=== PATIENT | female | born 1930 | race Caucasian/White ===

== ENCOUNTER 2017-09-27 19:13 | Observation (INO) | payer OTHER ==
--- OUTSIDE RECORDS SUMMARY | 2017-09-27 19:15 | XMS REPORT | Clinical Summary ---
:1930 Author Organization [facility] Address [address] [place] [address] Care Team Providers Name Role Phone Awa Bush MD Primary Care Provider Allergies Active Allergy Reactions Severity Noted Date Comments Diltiazem Hcl Hives 11/03/2015 Cefuroxime Hives 11/03/2015 Ciprofloxacin Hives 11/03/2015 Codeine Hives 11/03/2015 Procaine GI Intolerance 11/03/2015 Penicillin G Acetaminophen GI Intolerance 11/03/2015 vomiting Current Medications Prescription Sig. Disp. Refills Start Date End Date Status ALPRAZolam (XANAX) Take 0.5 mg Active 0.5 MG tablet by mouth nightly. zolpidem (AMBIEN) 5 03/25/2016 Active MG tablet temazepam 09/26/2016 Active (RESTORIL) 15 mg capsule amLODIPine Take 1 tablet 90 tablet 3 11/04/2016 Active (NORVASC) 10 mg (10 mg total) tablet by mouth daily. metoprolol tartrate Take 1 tablet 180 tablet 3 11/04/2016 Active (LOPRESSOR) 25 mg (25 mg total) tablet by mouth 2 (two) times a day. metoprolol tartrate Take 25 mg by 11/04/2016 Discontinued (LOPRESSOR) 25 mg mouth 2 (two) tablet times a day. amLODIPine Take 10 mg by 11/04/2016 Discontinued (NORVASC) 10 mg mouth daily. tablet amLODIPine Take 1 tablet 90 tablet 3 05/06/2016 05/06/2017 (NORVASC) 10 mg (10 mg total) tablet by mouth daily. Active Problems Problem Noted Date AVD (aortic valve disease) 11/04/2016 S/P AVR 05/01/2016 Encounters Date Type Specialty Care Team Description 05/26/2017 Office Visit Cardiology Tim Madrigal MD S/P AVR (Primary Dx) 11/04/2016 Office Visit Cardiology Tim Madrigal MD AVD (aortic valve disease) (Primary Dx); S/P AVR after 09/26/2016 Family History Medical History Relation Name Comments No Known Problems Father No Known Problems Mother Relation Name Status Comments Father Mother Social History Tobacco Use Types Packs/Day Years Used Date Never Smoker Smokeless Tobacco: Never Used Alcohol Use Drinks/Week oz/Week Comments No Sex Assigned at Date Recorded Not on file Last Filed Vital Signs Vital Sign Reading Time Taken Blood Pressure 136/59 05/26/2017 3:24 PM FLIGHT ATTENDANT/INFLIGHT SUPERVISOR Pulse 80 05/26/2017 3:24 PM FLIGHT ATTENDANT/INFLIGHT SUPERVISOR Temperature - - Respiratory Rate - - Oxygen Saturation - - Inhaled Oxygen Concentration - - Weight 60.3 kg (133 lb) 05/26/2017 3:24 PM FLIGHT ATTENDANT/INFLIGHT SUPERVISOR Height 165.1 cm (5' 5") 05/26/2017 3:24 PM FLIGHT ATTENDANT/INFLIGHT SUPERVISOR Body Mass Index 22.13 05/26/2017 3:24 PM FLIGHT ATTENDANT/INFLIGHT SUPERVISOR Plan of Treatment Date Type Specialty Care Team Description 11/24/2017 Office Visit Cardiology Tim Madrigal MD [address] [place] [address] Health Maintenance Due Date Last Done Comments SHINGRIX VACCINE (#1) 1979 ZOSTER VACCINE 1989 PNEUMOCOCCAL POLYSACCHARIDE VACCINE AGE 65 AND OVER 1994 PNEUMOCOCCAL-13 1994 INFLUENZA VACCINE 11/04/2017 Procedures Procedure Name Priority Date/Time Associated Comments Diagnosis ECHOCARDIOGRAM 2D Routine 12/18/2016 12:55 AVD (aortic valve Results for this COMPLETE W MMODE PM CDT disease) procedure are in SPECTRAL COLOR DOPPLER the results (36142) section. after 09/26/2016 Results Echocardiogram complete w contrast and 3D if needed (12/18/2016 12:55 PM) Narrative Performed At [facility] Echocardiography Report Pat.Name:VICENTE VALENTIN Bernie.ID:[id number] .Date: 12/18/2016 Refer.MD:TIM MADRIGAL MD Exam Time: 12:05:00 PM Study Type:Routine Echo Height:65inWeight: 136lb BSA: 1.68 m2 DOBAge:1930,86Y Sex: FEMALEBP:139/65 Sonogrphr: Cherelle Jacobson RDCS, RVTPat. Stat.:Outpatient Room:[facility] Status:Final Echo Event ID:[id number] Order ID:[id number] Reason for Study:Prosthetic valve, no dysfunction -Routine (<3yr) History / Clinical:Atrial Fibrillation, Chest Pain, Hypertension, Valvular Heart Disease; Aortic Stenosis Procedures:2D Echo, Colorflow Doppler Race:C FINDINGS: LV: LV size is grossly normal. Technical difficulty limits accurateassessment of LV dimensions. LV systolic function ishyperdynamic. Overall wall motion is hyperdynamic. EstimatedEF is >70%. RV: RV size is normal. RV systolic function is normal. LA: LA size is normal. RA: RA size is normal. AO: Aortic root diameter is not well visualized. LION: No pericardial effusion. There is an anterior space consistentwith a prominent epicardial fat pad. AV: Bioprosthetic valve in aortic position (unknown type)-not wellvisualized. Cannot exclude mild aortic regurgitation (possiblyparavalvular). Technical difficulty limits accurateassessment. Normal prosthetic valve velocity and gradient.Surgical Prosthetic AV Doppler velocity index is 0.62(normal>0.25). MV: Mild mitral annular calcification. There is Chordal systolic anteriormotion of the mitral valve ( No obvious valvular OLENA-butunable to assess accurately due to technical difficulty).A trace of mitral regurgitation. PV: No structural PV abnormalities noted. Mild pulmonic regurgitation. TV: No structural TV abnormalities noted. Mild tricuspid regurgitation Mauricio: LV relaxation is impaired. LV filling pressure is elevated. Other:Suboptimal/insufficient TR jet. Estimated PA systolic pressureis at least 27 mmHg, assuming a mean RAP of 5 mmHg. MEASUREMENTS: 2D Parasternal [place] Ao Rtd 2.3 cmIndex1.4 cm/m LVPWd0.9 cm LVOT 1.6 cmLA Ds4.2 cm LVIDd3.8 cmIndex2.2 cm/m Ao An1.6 cm LVIDs2 cmLV Dzej782.4 g(87-129) LV%fs 45.4 % LVM Index 64.5 g/m2 IVSd 1.1 cmRWT0.5 LA Sng Plane LA Area 15.3 cm2(8.8-23.4) LA Vol36.7 ml Index21.8 ml/m LA LngAx 5.2 cm RA Sng Plane RA Area 12.9 cm2(8.3-19.5) RA Vol30.5 ml Index18.2 ml/m RA LngAx 4.6 cm DOPPLER AV For Flow/JENN AV pkVel 238.7 cm/s (100-170) AV AC/ET 0.3 AV mnVel 160.1 cm/[place] TVI59.4 cm AV pkPG 22.8 mmHgAVpkAcRt 5564.1 cm/s2 AV Mean G 12.6 mmHgAV LmRq666.8 cm/s2 AV AC106 msec (83-118) AV Area1.3 cm2(3-5) AV ET371 msec LVOT For Flow LVOT Area2 cm2 LVOT SV 74.6 ml VSFLozRss167.6 cm/sHR58.1 bpm LVOTpkPG 7.8 mmHgLVOT CO4.3 l/min LVOTmnPG 4.6 mmHgLVOT CI2.6 l/m/m2 LVOT TVI37.1 cm Signed 12/18/2016 06:34 PM Juliette Morales MD Procedure Note Interface, Radiology Results In - 12/18/2016 6:34 PM CDT [facility] Echocardiography Report Pat.Name: VICENTE VALENTIN.ID: [id number] St.Date: 12/18/2016 Refer.MD: TIM MADRIGAL MD Exam Time: 12:05:00 PM Study Type:Routine Echo Height: 65in Weight: 136lb BSA: 1.68 m2 Age: 11 1930,86Y Sex: FEMALE BP: 139/65 Sonogrphr: Cherelle Jacobson RDCS, RVT Pat. Stat.:Outpatient Room: [facility] Study Status:Final Echo Event ID:[id number] Order ID: [id number] Reason for Study:Prosthetic valve, no dysfunction -Routine (<3yr) History / Clinical:Atrial Fibrillation, Chest Pain, Hypertension, Valvular Heart Disease; Aortic Stenosis Procedures:2D Echo, Colorflow Doppler Race: C FINDINGS: LV: LV size is grossly normal. Technical difficulty limits accurate assessment of LV dimensions. LV systolic function is hyperdynamic. Overall wall motion is hyperdynamic. Estimated EF is >70%. RV: RV size is normal. RV systolic function is normal. LA: LA size is normal. RA: RA size is normal. AO: Aortic root diameter is not well visualized. LION: No pericardial effusion. There is an anterior space consistent with a prominent epicardial fat pad. AV: Bioprosthetic valve in aortic position (unknown type)-not well visualized. Cannot exclude mild aortic regurgitation (possibly paravalvular). Technical difficulty limits accurate assessment. Normal prosthetic valve velocity and gradient. Surgical Prosthetic AV Doppler velocity index is 0.62 (normal>0.25). MV: Mild mitral annular calcification. There is Chordal systolic anterior motion of the mitral valve ( No obvious valvular OLENA-but unable to assess accurately due to technical difficulty). A trace of mitral regurgitation. PV: No structural PV abnormalities noted. Mild pulmonic regurgitation. TV: No structural TV abnormalities noted. Mild tricuspid regurgitation Mauricio: LV relaxation is impaired. LV filling pressure is elevated. Other: Suboptimal/insufficient TR jet. Estimated PA systolic pressure is at least 27 mmHg, assuming a mean RAP of 5 mmHg. MEASUREMENTS: 2D Parasternal Long [place] Ao Rtd 2.3 cm Index 1.4 cm/m LVPWd 0.9 cm LVOT 1.6 cm LA Ds 4.2 cm LVIDd 3.8 cm Index 2.2 cm/m Ao An 1.6 cm LVIDs 2 cm LV Mass 108.4 g (87-129) LV%fs 45.4 % LVM Index 64.5 g/m2 IVSd 1.1 cm RWT 0.5 LA Sng Plane LA Area 15.3 cm2 (8.8-23.4) LA Vol 36.7 ml Index 21.8 ml/m LA LngAx 5.2 cm RA Sng Plane RA Area 12.9 cm2 (8.3-19.5) RA Vol 30.5 ml Index 18.2 ml/m RA LngAx 4.6 cm DOPPLER AV For Flow/JENN AV pkVel 238.7 cm/s (100-170) AV AC/ET 0.3 AV mnVel 160.1 cm/s AV TVI 59.4 cm AV pkPG 22.8 mmHg AVpkAcRt 5564.1 cm/s2 AV Mean G 12.6 mmHg AV DeRt 643.8 cm/s2 AV AC 106 msec (83-118) AV Area 1.3 cm2 (3-5) AV ET 371 msec LVOT For Flow LVOT Area 2 cm2 LVOT SV 74.6 ml LVOTpkVel 139.6 cm/s HR 58.1 bpm LVOTpkPG 7.8 mmHg LVOT CO 4.3 l/min LVOTmnPG 4.6 mmHg LVOT CI 2.6 l/m/m2 LVOT TVI 37.1 cm Signed 12/18/2016 06:34 PM Juliette Morales MD Performing Organization Address City/State/Zipcode Phone Number [facility] [address] [place] [address] after 09/26/2016 Insurance Payer Benefit Plan / Group Subscriber ID Type Phone Address [employer]HC MEDICARE [employer] xxxxxxxxx HMO Home: [address] [phone] [address]
--- NOTE | 2017-09-27 21:05 | RAD REPORT ---
EXAM DESCRIPTION: CT - Ct Stroke Brain Wo Cont - 09/27/2017 8:21 pm CLINICAL HISTORY: Headache, weakness CT ordered as a stroke protocol study. Technologist notes no overhead paging code stroke. CLINICAL HISTORY: CT head March 2017 TECHNIQUE: Axial 5 millimeter thick images of the head were obtained without IV contrast. All CT scans are performed using dose optimization technique as appropriate and may include automated exposure control or mA/KV adjustment according to patient size. FINDINGS: No intracranial hemorrhage, mass, or cerebral edema. No acute cortical based infarction id entified. No cortical edema or sulcal effacement. Advanced atrophy and chronic ischemic changes are p resent. No extra-axial fluid collections. [place] matter-white matter differentiation is preserved. Russel tricular size is in proportion to volume loss. Intracranial findings are not substantially different from comparison. Visualized portions of the mastoid air cells, paranasal sinuses, and orbits are unremarkable. Findings telephoned to the referring physician 9:01 p.m. IMPRESSION: No CT evidence of acute intracranial process. Advanced atrophy and chronic ischemic changes are present similar to comparison.
[2017-09-27 21:09] LABS: Absolute Lymphocytes (CBC) 2.6 K/uL (0.7-4.9); Absolute Monocytes 0.9 K/uL (0.1-1.3); Absolute Neutrophil 5.9 K/uL (1.8-8.0); Basophils % 0.4 % (0-1.3); Eosinophils % 2.9 % (0-4.4); Hematocrit 32.1 % (36.0-45.0); Lymphocytes % 27.1 % (15.3-44.8); MCV 84.3 fL (80-100); MPV 7.4 fL (7.6-11.3); Monocytes % 9.2 % (3.3-12.3); RBC Red Blood Cell Count 3.81 M/uL (3.86-4.86)
[2017-09-27 21:13] LABS: Protime INR 0.95
--- NOTE | 2017-09-27 21:14 | RAD REPORT ---
EXAM DESCRIPTION: RAD - Chest Single View - 09/27/2017 8:42 pm CLINICAL HISTORY: Weakness, shortness of breath COMPARISON: March 2017 TECHNIQUE: AP portable chest image was obtained 2027 hours . FINDINGS: Lungs are extensively fibrotic as a baseline. No focal mass, consolidation or failure find ing. Heart and vasculature are normal. No measurable pleural effusion and no pneumothorax. No gross b cari abnormality seen. No acute aortic findings suspected. IMPRESSION: Extensive pulmonary fibrotic pattern not substantially different from comparison.
[2017-09-27 21:27] LABS: ALT/SGPT 11 U/L (12-78); AST/SGOT 17 U/L (15-37); Alkaline Phosphatase 115 U/L (45-117); BUN Blood Urea Nitrogen 24 mg/dL (7-18); Bicarbonate 24 mmol/L (21-32); Bilirubin Direct < 0.1 mg/dL (0-0.2); Bilirubin Total 0.2 mg/dL (0.2-1.0); Glucose Level 105 mg/dL (74-106); Potassium 3.5 mmol/L (3.5-5.1); Protein, Total 7.8 g/dL (6.4-8.2); Sodium Level 132 mmol/L (136-145)
[2017-09-27 21:35] LABS: Urine Blood NEGATIVE (NEG); Urine Glucose NEGATIVE (NEG); Urine Protein NEGATIVE (NEG); Urine Specific Gravity <1.005 (1.005-1.030)
[2017-09-27 21:46] LABS: Urine Bacteria <20 /HPF (<20); Urine Culture Reflex Order NOT NEEDED; Urine RBC <5 /HPF (NONE SEEN)
--- NOTE | 2017-09-27 22:12 | ER ---
Nurse's Notes [facility] Name: Mirtha Valentin Age: 87 yrs Sex: Female : 1930 Arrival Date: 09/27/2017 Time: 19:19 Bed 7 Private MD: Brijesh Bush R Diagnosis: Acute weakness Presentation: 09/27 19:27 Presenting complaint: Patient states: headache, dizziness, neck pain and generalized ak1 weakness started at 1800. Transition of care: patient was not received from another setting of care. Onset of symptoms was September 27, 2017. Risk Assessment: Do you want to hurt yourself or someone else? Patient reports no desire to harm self or others. Initial Sepsis Screen: Does the patient meet any 2 criteria? No. Patient's initial sepsis screen is negative. Does the patient have a suspected source of infection? No. Patient's initial sepsis screen is negative. Care prior to arrival: None. 19:27 Method Of Arrival: Wheelchair ak1 19:27 Acuity: SERAFIN 3 ak1 Triage Assessment: 19:30 General: Appears in no apparent distress. Behavior is calm, cooperative. Neuro: Level ak1 of Consciousness is awake, alert, obeys commands, Oriented to person, place, time, situation, Pharmaceutical Sales Specialist are equal bilaterally Moves all extremities. Gait is unsteady, Speech is normal, Facial symmetry appears normal. 19:30 Pain: Denies pain. ak1 19:30 Pain: Pain began 1 hour ago. ak1 19:30 Pain: Pain currently is 0 out of 10 on a pain scale. Also complains of sleeplessness. ak1 19:38 Headache History: The patient has had previous headaches and this one is different than lp1 previous episodes. Historical: - Allergies: 19:29 "steroids"; ak1 19:29 Keflex; ak1 19:29 Opioids - Morphine Analogues; ak1 19:29 PENICILLINS; ak1 19:29 codine; ak1 - Home Meds: 19:29 amlodipine 10 mg tab once daily [Active]; aspirin 81 mg Oral chew 1 tab once daily ak1 [Active]; alprazolam 0.5 mg Oral tab AT NIGHT [Active]; 22:16 metoprolol tartrate 25 mg Oral tab 1 tab once daily [Active]; lp1 - PMHx: 19:29 Anxiety; Hypertension; ak1 - PSHx: 19:29 Mitral Valve sx; left masectomy; Appendectomy; ak1 - Immunization history:: Adult Immunizations unknown. - Social history:: Smoking status: unknown. - Ebola Screening: : No symptoms or risks identified at this time. - Family history:: not pertinent. - Hospitalizations: : No recent hospitalization is reported. Screenin:29 Abuse screen: Denies threats or abuse. Denies injuries from another. Nutritional ak1 screening: No deficits noted. Tuberculosis screening: No symptoms or risk factors identified. Fall Risk None identified. 20:00 Patient has been NPO before screening. The patient is alert, able to follow commands. lp1 The patient does not exhibit slurred or garbled speech The patient is not exhibiting difficulty speaking. The patient does not exhibit difficulty understanding words. The patient is able to swallow own secretions with no drooling or need for suction. Patient tolerated one teaspoon of water. No drooling, immediate coughing, gurgling, or clearing of the throat was noted. The patient tolerated 90mL of water. No drooling, immediate coughing, gurgling, or clearing of the throat was noted. The patient passed the bedside swallow screening. Oral medications may be given as ordered. Contact Physician for further diet orders. Assessment: 19:37 General: Appears in no apparent distress. Behavior is appropriate for age. Pain: Denies lp1 pain. Neuro: Level of Consciousness is awake, alert, obeys commands, Oriented to person, place, time, situation, Pharmaceutical Sales Specialist are equal bilaterally Moves all extremities. Full function Speech is normal, Facial symmetry appears normal, Pupils are PERRLA, Reports generalized weakness, headache to left side, trouble speaking; Symptoms have resolved at this time. Cardiovascular: Capillary refill < 3 seconds in bilateral fingers toes Patient's skin is warm and dry. Respiratory: Airway is patent Respiratory effort is even, unlabored, Respiratory pattern is regular, Breath sounds are clear bilaterally. GI: Abdomen is non-distended. : No signs and/or symptoms were reported regarding the genitourinary system. EENT: No signs and/or symptoms were reported regarding the EENT system. Derm: Skin is intact, Skin is dry, Skin is pink, warm \\T\\ dry. Musculoskeletal: Circulation, motion, and sensation intact. 19:40 Reassessment: Patient states taking x3 baby Aspirin today; Provider aware. lp1 20:45 Reassessment: Patient appears in no apparent distress at this time. No changes from lp1 previously documented assessment. Patient and/or family updated on plan of care and expected duration. Pain level reassessed. Patient is alert, oriented x 3, equal unlabored respirations, skin warm/dry/pink. 21:45 Reassessment: Patient appears in no apparent distress at this time. Patient and/or lp1 family updated on plan of care and expected duration. Pain level reassessed. Patient is alert, oriented x 3, equal unlabored respirations, skin warm/dry/pink. Patient requesting to eat at this time. 22:15 Reassessment: Provider states okay to eat, patient given sandwich at this time; family lp1 at bedside, aware of admission. 23:15 Reassessment: Patient appears in no apparent distress at this time. No changes from lp1 previously documented assessment. Patient and/or family updated on plan of care and expected duration. Pain level reassessed. Patient is alert, oriented x 3, equal unlabored respirations, skin warm/dry/pink. Vital Signs: 19:29 BP 143 / 64; Pulse 87; Resp 22; Temp 98.0(O); Pulse Ox 94% on R/A; Weight 62.6 kg (R); ak1 Height 5 ft. 4 in. (162.56 cm) (R); Pain 0/10; 19:29 Pulse Ox 97% on 2 lpm NC; ak1 20:00 BP 129 / 55; Pulse 77; Resp 17 S; Pulse Ox 97% on R/A; Pain 0/10; jd3 21:41 BP 128 / 63; Pulse 76; Resp 19 S; Pulse Ox 95% on R/A; Pain 0/10; jd3 22:30 BP 104 / 85; Pulse 90; Resp 20; Pulse Ox 99% on R/A; lp1 23:05 BP 136 / 66; Pulse 80; Resp 17; Pulse Ox 95% on R/A; lp1 23:49 BP 126 / 59; Pulse 68; Resp 16; Pulse Ox 96% on R/A; Pain 0/10; lp1 19:29 Body Mass Index 23.69 (62.60 kg, 162.56 cm) ak1 NIH Stroke Scale Scores: 19:30 NIHSS Score: 0 lp1 ED Course: 19:19 Patient arrived in ED. ds1 19:20 Brijesh Bush MD is Private Physician. ds1 19:27 Triage completed. ak1 19:29 Arm band placed on Patient placed in an exam room, on a stretcher, on oxygen, on pulse ak1 oximetry, Patient notified of wait time. 19:30 Patient has correct armband on for positive identification. Bed in low position. Call ak1 light in reach. Side rails up X 1. Adult w/ patient. Pulse ox on. NIBP on. 19:36 Lisa Roy RN is Primary Nurse. lp1 19:39 Joshua Ochoa MD is Attending Physician. wa 19:47 EKG done, by ED staff, reviewed by Joshua Ochoa MD. cc 20:[address] via stretcher. cw1 20:22 CT Stroke Brain w/o Contrast In Process Unspecified. EDMS 20:37 X-ray completed. Portable x-ray completed in exam room. Patient tolerated procedure la2 well. 20:38 Stroke CXR 1 View In Process Unspecified. EDMS 21:00 Inserted saline lock: 18 gauge 8 cm midline to right upper brachial vein on first fc attempt. Line with good blood return and flushes well. Labs collected and sent to lab. 21:53 No provider procedures requiring assistance completed. lp1 22:11 Lyndon Mcdowell MD is Hospitalizing Provider. wa 22:16 Patient admitted, IV remains in place. lp1 Administered Medications: No medications were administered Point of Care Testing: Blood Glucose: 19:32 Blood Glucose: 162 mg/dL; lp1 Ranges: Outcome: 22:12 Decision to Hospitalize by Provider. wa 22:16 Condition: stable lp1 22:16 Instructed on the need for admit. 23:49 Admitted to Tele via wheelchair, room 415, with chart, Report called to Zakia Leonardo RN lp1 09/28 00:28 Patient left the ED. jd3 NIH Stroke Scale - NIH Stroke Score Date: 09/27/2017 Time: 19:30 Total Score = 0 1a. Level of Consciousness (LOC) - 0(Alert) 1b. Level of Consciousness (LOC) (Year \\T\\ Age) - 0(Both) 1c. LOC Commands (Open \\T\\ Closes Eyes/Education And Training Coordinator) - 0(Both) 2. Best Gaze (Lateral Gaze Paresis) - 0(Normal) 3. Visual Field Loss - 0(No visual loss) 4. Facial Palsy - 0(Normal) 5a. Left Arm: Motor (10-second hold) - 0(No drift) 5b. Right Arm: Motor (10-second hold) - 0(No drift) 6a. Left Leg: Motor (5-second hold - always test supine) - 0(No drift) 6b. Right Leg: Motor (5-second hold - always test supine) - 0(No drift) 7. Limb Ataxia (finger/nose \\T\\ heel/brandt - test with eyes open) - 0(Absent) 8. Sensory Loss (pinprick arms/legs/face) - 0(Normal) 9. Best Language: Aphasia (description/naming/reading) - 0(No aphasia) 10. Dysarthria (speech clarity - read or repeat words) - 0(Normal) 11. Extinction and Inattention (visual/tactile/auditory/spatial/personal) - 0(No abnormality) Initials: lp1 Signatures: Dispatcher [employer] EDRI Claudia Matias RN RN Lynne Julien ds1 Kiara Whiteside cw1 Terese Galicia Laura, RN RN lp1 Nerissa Bowie RN RN ak1 Joshua Ochoa MD MD wa Ardoin, Leslie la2 Davies, Jonathon, RN RN jd3 Corrections: (The following items were deleted from the chart) 09/27 22:16 19:29 Home Meds: metoprolol tartrate 25 mg Oral tab 1 tab 2 times per day; ak1 lp1
--- NOTE | 2017-09-27 22:12 | EDPHYS ---
Physician Documentation [facility] Name: Mirtha Valentin Age: 87 yrs Sex: Female : 1930 Arrival Date: 09/27/2017 Time: 19:19 Bed 7 Private MD: Brijesh Bush R ED Physician Joshua Ochoa HPI: 09/27 21:58 This 87 yrs old Female presents to ER via Wheelchair with complaints of wa Dizziness, Headache, Weakness. 21:58 The patient presents with generalized weakness, feeling off balance. Onset: The wa symptoms/episode began/occurred just prior to arrival. Context: occurred at home, occurred while the patient was at rest, just prior to the episode the patient experienced no apparent symptoms, sudden onset L side neck discomfort that shot pain to L side head. assoc with difficulty finding her words and generalized weakness. denies chest pain or SOB. denies facial or upper extremity discomfort. denies facial paralysis. denies symptoms of same in the past. takes 81 mg ASA daily so took that earlier today. also took 2 aspirins when this occurred. states feels back to normal at this time. Modifying factors: The symptoms are alleviated by nothing, the symptoms are aggravated by nothing. Associated signs and symptoms: Pertinent positives: headache, Pertinent negatives: ataxia, blurred vision, chest pain, confusion, diaphoresis, focal weakness, numbness, palpitations, shortness of breath, syncope, tingling, vomiting. Severity of symptoms: At their worst the symptoms were moderate in the emergency department the symptoms have resolved. Patient's baseline: Neuro: alert and fully oriented, Motor: no deficits, Ambulation: walks without assistance, Speech: normal, The patient has a previous history of HTN. The patient has not experienced similar symptoms in the past. The patient has not recently seen a physician, the patient's primary care provider is Dr. Dr. Calhoun. Historical: - Allergies: 19:29 "steroids"; ak1 19:29 Keflex; ak1 19:29 Opioids - Morphine Analogues; ak1 19:29 PENICILLINS; ak1 19:29 codine; ak1 - Home Meds: 19:29 amlodipine 10 mg tab once daily [Active]; aspirin 81 mg Oral chew 1 tab once daily ak1 [Active]; alprazolam 0.5 mg Oral tab AT NIGHT [Active]; 22:16 metoprolol tartrate 25 mg Oral tab 1 tab once daily [Active]; lp1 - PMHx: 19:29 Anxiety; Hypertension; ak1 - PSHx: 19:29 Mitral Valve sx; left masectomy; Appendectomy; ak1 - Immunization history:: Adult Immunizations unknown. - Social history:: Smoking status: unknown. - Ebola Screening: : No symptoms or risks identified at this time. - Family history:: not pertinent. - Hospitalizations: : No recent hospitalization is reported. ROS: 22:02 Constitutional: Negative for fever, chills, and weight loss, Eyes: Negative for injury, wa pain, redness, and discharge, ENT: Negative for injury, pain, and discharge, Neck: Negative for injury, pain, and swelling, Cardiovascular: Negative for chest pain, palpitations, and edema, Respiratory: Negative for shortness of breath, cough, wheezing, and pleuritic chest pain, Abdomen/GI: Negative for abdominal pain, nausea, vomiting, diarrhea, and constipation, Back: Negative for injury and pain, : Negative for injury, bleeding, discharge, and swelling, MS/Extremity: Negative for injury and deformity, Skin: Negative for injury, rash, and discoloration, Psych: Negative for depression, anxiety, suicide ideation, homicidal ideation, and hallucinations. 22:02 Neuro: Positive for dizziness, headache, speech changes, weakness, Negative for altered mental status, syncope, tingling, visual changes. 22:02 All other systems are negative. Exam: 22:03 Constitutional: This is a well developed, well nourished patient who is awake, alert, wa and in no acute distress. Head/Face: Normocephalic, atraumatic. Eyes: Pupils equal round and reactive to light, extra-ocular motions intact. Lids and lashes normal. Conjunctiva and sclera are non-icteric and not injected. Cornea within normal limits. Periorbital areas with no swelling, redness, or edema. ENT: Nares patent. No nasal discharge, no septal abnormalities noted. Tympanic membranes are normal and external auditory canals are clear. Oropharynx with no redness, swelling, or masses, exudates, or evidence of obstruction, uvula midline. Mucous membranes moist. Neck: Trachea midline, no thyromegaly or masses palpated, and no cervical lymphadenopathy. Supple, full range of motion without nuchal rigidity, or vertebral point tenderness. No Meningismus. Chest/axilla: Normal chest wall appearance and motion. Nontender with no deformity. No lesions are appreciated. Cardiovascular: Regular rate and rhythm with a normal S1 and S2. No gallops, murmurs, or rubs. Normal PMI, no JVD. No pulse deficits. Respiratory: Lungs have equal breath sounds bilaterally, clear to auscultation and percussion. No rales, rhonchi or wheezes noted. No increased work of breathing, no retractions or nasal flaring. Abdomen/GI: Soft, non-tender, with normal bowel sounds. No distension or tympany. No guarding or rebound. No evidence of tenderness throughout. Back: No spinal tenderness. No costovertebral tenderness. Full range of motion. Skin: Warm, dry with normal turgor. Normal color with no rashes, no lesions, and no evidence of cellulitis. MS/ Extremity: Pulses equal, no cyanosis. Neurovascular intact. Full, normal range of motion. Psych: Awake, alert, with orientation to person, place and time. Behavior, mood, and affect are within normal limits. 22:03 Neuro: Orientation: is normal, Mentation: is normal, Memory: is normal, Cranial nerves: grossly normal, Cerebellar function: normal finger to nose testing, heel to brandt testing is normal, able to perform alternating rapid hand movements, Motor: is normal. Vital Signs: 19:29 BP 143 / 64; Pulse 87; Resp 22; Temp 98.0(O); Pulse Ox 94% on R/A; Weight 62.6 kg (R); ak1 Height 5 ft. 4 in. (162.56 cm) (R); Pain 0/10; 19:29 Pulse Ox 97% on 2 lpm NC; ak1 20:00 BP 129 / 55; Pulse 77; Resp 17 S; Pulse Ox 97% on R/A; Pain 0/10; jd3 21:41 BP 128 / 63; Pulse 76; Resp 19 S; Pulse Ox 95% on R/A; Pain 0/10; jd3 22:30 BP 104 / 85; Pulse 90; Resp 20; Pulse Ox 99% on R/A; lp1 23:05 BP 136 / 66; Pulse 80; Resp 17; Pulse Ox 95% on R/A; lp1 23:49 BP 126 / 59; Pulse 68; Resp 16; Pulse Ox 96% on R/A; Pain 0/10; lp1 19:29 Body Mass Index 23.69 (62.60 kg, 162.56 cm) ak1 NIH Stroke Scale Scores: 19:30 NIHSS Score: 0 lp1 MDM: 19:39 Patient medically screened. nm 22:04 Differential diagnosis: nml BG. TIA? will work up. will admit for further eval. . Data nm reviewed: vital signs, nurses notes. Test interpretation: by ED physician or midlevel provider: ECG, EKG: HR 74. RBBB. labs: no UTI. mild anemia. Head CT: age appropriate changes. no acute process. CXR: fibrotic changes. no acute process. Response to treatment: the patient's symptoms have resolved after treatment. Physician consultation: Lyndon Mcdowell MD. Admission orders: after a detailed discussion of the patient's condition and case, the admit orders are written by az. 09/27 20:07 Order name: Hepatic Function; Complete Time: 21:38 nm 09/27 20:08 Order name: Magnesium; Complete Time: 21:50 nm 09/27 20:08 Order name: Troponin (emerg Dept Use Only); Complete Time: 21:50 nm 09/27 20:08 Order name: Basic Metabolic Panel; Complete Time: 21:50 nm 09/27 20:08 Order name: CBC with Diff; Complete Time: 21:50 nm 09/27 20:08 Order name: Protime (+inr); Complete Time: 21:50 nm 09/27 20:08 Order name: Urine Microscopic Only; Complete Time: 21:50 nm 09/27 20:08 Order name: CT Stroke Brain w/o Contrast; Complete Time: 21:50 nm 09/27 20:08 Order name: Stroke CXR 1 View; Complete Time: 21:50 nm 09/27 20:08 Order name: EKG; Complete Time: 20:08 nm 09/27 20:08 Order name: Accucheck; Complete Time: 20:15 nm 09/27 20:08 Order name: Cardiac monitoring; Complete Time: 20:15 nm 09/27 20:08 Order name: EKG - Nurse/Tech; Complete Time: 20:15 nm 09/27 21:32 Order name: Urine Dipstick--Ancillary (enter results); Complete Time: 21:38 rg2 09/27 20:08 Order name: IV Saline Lock; Complete Time: 21:06 nm 09/27 20:08 Order name: Labs collected and sent; Complete Time: 21:06 nm 09/27 20:08 Order name: NPO; Complete Time: 20:15 nm 09/27 20:08 Order name: O2 Per Protocol; Complete Time: 20:15 nm 09/27 20:08 Order name: O2 Sat Monitoring; Complete Time: 20:15 nm 09/27 20:08 Order name: Urine Dipstick-Ancillary (obtain specimen); Complete Time: 21:23 nm Administered Medications: No medications were administered Point of Care Testing: Blood Glucose: 19:32 Blood Glucose: 162 mg/dL; lp1 Ranges: Critical Glucose Levels:Adult <50 mg/dl or >400 mg/dl <40 mg/dl or >180 mg/dl Disposition: 09/27/17 22:12 Hospitalization ordered by Lyndon Mcdowell for Observation. Preliminary diagnosis is Acute weakness. - Bed requested for Telemetry/MedSurg (observation). - Status is Observation. jd3 - Condition is Stable. - Problem is new. - Symptoms have improved. UTI on Admission? No NIH Stroke Scale - NIH Stroke Score Date: 09/27/2017 Time: 19:30 Total Score = 0 1a. Level of Consciousness (LOC) - 0(Alert) 1b. Level of Consciousness (LOC) (Year \\T\\ Age) - 0(Both) 1c. LOC Commands (Open \\T\\ Closes Eyes/Body Technician/Painter) - 0(Both) 2. Best Gaze (Lateral Gaze Paresis) - 0(Normal) 3. Visual Field Loss - 0(No visual loss) 4. Facial Palsy - 0(Normal) 5a. Left Arm: Motor (10-second hold) - 0(No drift) 5b. Right Arm: Motor (10-second hold) - 0(No drift) 6a. Left Leg: Motor (5-second hold - always test supine) - 0(No drift) 6b. Right Leg: Motor (5-second hold - always test supine) - 0(No drift) 7. Limb Ataxia (finger/nose \\T\\ heel/brandt - test with eyes open) - 0(Absent) 8. Sensory Loss (pinprick arms/legs/face) - 0(Normal) 9. Best Language: Aphasia (description/naming/reading) - 0(No aphasia) 10. Dysarthria (speech clarity - read or repeat words) - 0(Normal) 11. Extinction and Inattention (visual/tactile/auditory/spatial/personal) - 0(No abnormality) Initials: lp1 Signatures: Dispatcher [employer] EDMS Donna Cabral RN RN Lisa Roy RN RN lp1 Nerissa Bowie RN RN ak Joshua Ochoa MD MD wa Davies, Jonathon, RN RN jd3 Corrections: (The following items were deleted from the chart) 22:16 19:29 Home Meds: metoprolol tartrate 25 mg Oral tab 1 tab 2 times per day; ak1 lp1 23:32 22:12 Hospitalization Ordered by Lyndon Mcdowell MD for Observation. Preliminary diagnosis is Acute weakness. Bed requested for Telemetry/MedSurg (observation). Status is Observation. Condition is Stable. Problem is new. Symptoms have improved. UTI on Admission? No. nm 09/28 00:28 09/27 23:32 09/27/2017 22:12 Hospitalization Ordered by Lyndon Mcdowell MD for jd3 Observation. Preliminary diagnosis is Acute weakness. Bed requested for Telemetry/MedSurg (observation). Status is Observation. Condition is Stable. Problem is new. Symptoms have improved. UTI on Admission? No.
[2017-09-27] MEDS ORDERED: ACETAMINOPHEN 500 MG TAB PO PRN (23:40)
[2017-09-27] MEDS ORDERED: MORPHINE 2 MG/ML SYR IV PRN (23:40)
[2017-09-27] MEDS ORDERED: ONDANSETRON 4 MG/2 ML VIAL IV PRN (23:40)
[2017-09-27] MEDS ORDERED: ALPRAZOLAM 0.5 MG TABLET PO PRN (23:43)
[2017-09-27] MEDS ORDERED: NA CHLORIDE 0.9% 1,000 ML IV SCH (23:45)
[2017-09-28 00:35] VITALS: BMI 20.5
[2017-09-28 00:43] VITALS: O2SAT 96
[2017-09-28 05:27] LABS: Absolute Monocytes 0.7 K/uL (0.1-1.3); Absolute Neutrophil 5.1 K/uL (1.8-8.0); Basophils % 0.5 % (0-1.3); Eosinophils % 4.6 % (0-4.4); Hematocrit 29.2 % (36.0-45.0); Lymphocytes % 24.3 % (15.3-44.8); MCH 27.5 pg (27.0-35.0); MCV 85.1 fL (80-100); MPV 7.8 fL (7.6-11.3); Monocytes % 8.3 % (3.3-12.3); RBC Red Blood Cell Count 3.42 M/uL (3.86-4.86)
[2017-09-28 05:46] LABS: Albumin 2.5 g/dL (3.4-5.0); Bilirubin Total 0.2 mg/dL (0.2-1.0); Protein, Total 6.5 g/dL (6.4-8.2)
--- NOTE | 2017-09-28 06:51 | P.HP ---
Certification for Inpatient Patient admitted to: Observation With expected LOS: <2 Midnights Patient will require the following post-hospital care: None Practitioner: I am a practitioner with admitting privileges, knowledge of patient current condition, hospital course, and medical plan of care. Services: Services provided to patient in accordance with Admission requirements found in Title 42 Section 412.3 of the Code of Federal Regulations Patient History Date of Service: 09/27/17 Reason for admission: Generalized weakness History of Present Illness: Patient is an 87-year-old female came to the hospital with dizziness and, headache, and weakness. States she was resting at home when she suddenly had pain to the left side of her neck which went up the left side of her head. She was aphasic and has some difficulty moving the right side of her body. She did not have any facial weakness. She takes a baby aspirin daily and she took a couple of more. She did not really Wanna communicate much when I came to talk to her. She stated she was tired but she was able to get the words out appropriately. She states her symptoms have pretty much resolved. At this time she possibly had a TIA. Her blood pressure is controlled. She will be admitted for further workup. Allergies acetaminophen [From Tylenol] Allergy (Unknown, Verified 09/28/17 01:29) Nausea/Vomiting cefuroxime Allergy (Unknown, Verified 09/28/17 01:29) Itching codeine [Codeine] Allergy (Unknown, Verified 09/28/17 01:29) Anaphylaxis Penicillins Allergy (Unknown, Verified 09/28/17 01:29) Anaphylaxis procaine HCl [From Novocain] Allergy (Unknown, Verified 09/28/17 01:29) Itching cephalexin [From Keflex] Allergy (Verified 09/28/17 01:29) Anaphylaxis "steroids" Allergy (Uncoded 09/27/17 22:47) Anaphylaxis codine Allergy (Uncoded 09/28/17 00:33) Unknown Opioids - Morp Allergy (Uncoded 09/28/17 00:33) Unknown Opioids - Morphine Allergy (Uncoded 09/27/17 22:47) Anaphylaxis Home Medications: ALPRAZolam [Xanax*] 0.5 mg PO BEDTIME PRN 05/01/12 Aspirin Chewable [Aspirin Chewable*] 81 mg PO DAILY 05/01/12 Metoprolol Tartrate [Lopressor*] 25 mg PO DAILY 05/01/12 Amlodipine Besylate [Norvasc] 10 mg PO DAILY 09/27/17 - Past Medical/Surgical History Has patient received pneumonia vaccine in the past: Yes Diabetic: No -: Anxiety -: Hypertension -: Breast Cancer -: Mitral Valve replacement -: Left Mastectomy -: Appendectomy -: hysterectomy - Family History Father Medical History: Stroke - Social History Smoking Status: Never smoker Alcohol use: No CD- Drugs: No Caffeine use: Yes Place of Residence: Home Review of Systems 10-point ROS is otherwise unremarkable Physical Examination - Vital Signs Temperature: 96.8 F Blood Pressure: 147/66 Pulse: 73 Respirations: 18 Pulse Ox (%): 94 - Physical Exam General: Alert, In no apparent distress, Oriented x3 HEENT: Atraumatic, PERRLA, Mucous membr. moist/pink, EOMI, Sclerae nonicteric Neck: Supple, 2+ carotid pulse no bruit, No LAD, Without JVD or thyroid abnormality Respiratory: Clear to auscultation bilaterally, Normal air movement Cardiovascular: Regular rate/rhythm, Normal S1 S2, No murmurs Gastrointestinal: Normal bowel sounds, Soft and benign, Non-distended, No tenderness Musculoskeletal: No clubbing, No swelling, No tenderness Integumentary: No rashes Neurological: Normal gait, Normal speech, Normal strength at 5/5 x4 extr, Normal tone, Sensation intact, Cranial nerves 3-12 intact, Normal affect Lymphatics: No axilla or inguinal lymphadenopathy - Studies Laboratory Data (last 24 hrs) 09/27/17 21:00: PT 11.2, INR 0.95 09/27/17 21:00: WBC 9.7, Hgb 10.7 L, Hct 32.1 L, Plt Count 249 09/27/17 21:00: Sodium 132 L, Potassium 3.5, BUN 24 H, Creatinine 1.00, Glucose 105, Magnesium 2.0, Total Bilirubin 0.2, AST 17, ALT 11 L, Alkaline Phosphatase 115 Assessment & Plan - Problems (Diagnosis) (1) TIA (transient ischemic attack) Current Visit: Yes Status: Acute (2) Headache Current Visit: Yes Status: Acute (3) Aphasia Current Visit: Yes Status: Acute (4) Right sided weakness Current Visit: Yes Status: Acute - Plan Plan: 1. Anti-platelet therapy 2. MRI of the brain 3. Statin therapy 4. Echocardiogram 5. Physical therapy evaluation 6. Possible discharge home if her workup is completely unremarkable with follow with her PCP Discharge Plan: Home Plan to discharge in: 24 Hours - Advance Directives Does patient have a Living Will: No Does patient have a Durable POA for Healthcare: No - Code Status/Comfort Care Code Status Assessed: Yes Code Status: Full Code Critical Care: No Time Spent Managing PTS Care (In Minutes): 50
--- NOTE | 2017-09-28 06:52 | EKG ---
Test Date: 2017-09-27 Test Time: 19:44:47 Roll Forming Machine Set Up Operator: JAY MEASUREMENT RESULTS: Intervals: Rate: 74 MA: 208 QRSD: 122 QT: 412 QTc: 457 [place]: P: 69 MA: 208 QRS: -12 T: 46 INTERPRETIVE STATEMENTS: Normal sinus rhythm Right bundle branch block Inferior infarct, age undetermined Abnormal ECG Compared to ECG 03/30/2017 16:14:08 Atrial premature complex(es) no longer present Left-axis deviation no longer present Myocardial infarct finding still present Electronically Signed On 09-28-17 06:51:54 CDT by Lex Ag
[2017-09-28] MEDS ORDERED: METOPROLOL TAR 50 MG TAB PO SCH (09:00)
[2017-09-28] MEDS ORDERED: ASPIRIN EC 81 MG TAB PO SCH (09:00)
[2017-09-28] MEDS ORDERED: AMLODIPINE 10 MG TAB PO SCH (09:00)
--- NOTE | 2017-09-28 09:08 | RAD REPORT ---
EXAM DESCRIPTION: VASCarotid Artery Bilateral09/28/2017 8:38 am CLINICAL HISTORY: TIA COMPARISON: None FINDINGS: The velocity of the right internal carotid artery equals 88 cm/sec. The right ICA/CCA rati o 1.6 The velocity of the left internal carotid artery equals C5 cm/sec. The left ICA/CCA ratio 1.5 Mild plaque is present within the carotid arteries. The vertebral arteries demonstrate antegrade flow IMPRESSION: Mild plaque within the carotid arteries without evidence of a hemodynamically significan t stenosis
--- NOTE | 2017-09-28 10:09 | RAD REPORT ---
EXAM DESCRIPTION: MRI - Brain Wo Cont - 09/28/2017 8:24 am CLINICAL HISTORY: TIA COMPARISON: September 27, 2017 TECHNIQUE: Axial, sagittal, and coronal magnetic resonance images of the brain were obtained. Contra st was not requested FINDINGS: Marked signal within periventricular, deep and subcortical white matter is present. Patchy areas of abnormal signal are seen within the brainstem and right cerebellum Diffusion-weighted/ADC mapping does not reveal evidence of acute infarction. The ventricles are normal caliber. An extra-axial fluid collection is not present The sinuses and mastoids are clear. IMPRESSION: Marked signal within periventricular, deep and subcortical white matter probably indicat ing ischemic changes secondary to small vessel disease Patchy signal within the brainstem and right cerebellum may be the sequela of old infarcts. No acute abnormality is displayed
--- NOTE | 2017-09-28 12:19 | ECHO ---
HEIGHT: 5 ft 5 in WEIGHT: 123 lb 1.6 oz DATE OF STUDY: 09/28/[address]: Lyndon Mcdowell MD 2-DIMENSIONAL: YES M.MODE: YES DOPPLER: YES COLOR FLOW: YES TDS: PORTABLE: DEFINITY: BUBBLE STUDY: DIAGNOSIS: TRANSIENT ISCHEMIC ATTACK CARDIAC HISTORY: CATHERIZATION: YES SURGERY: YES PROSTHETIC VALVE: AVR PACEMAKER: MEASUREMENTS (cm) DIASTOLIC (NORMALS) SYSTOLIC (NORMALS) IVSd 0.8 (0.6-1.2) LA Diam 3.2 (1.9-4.0) LVEF 87% LVIDd 3.6 (3.5-5.7) LVIDs 1.6 (2.0-3.5) %FS 55% LVPWd 1.0 (0.6-1.2) Ao Diam 2.2 (2.0-3.7) 2 DIMENSIONAL ASSESSMENT: RIGHT ATRIUM: NORMAL LEFT ATRIUM: NORMAL RIGHT VENTRICLE: NORMAL LEFT VENTRICLE: NORMAL TRICUSPID VALVE: NORMAL MITRAL VALVE: NORMAL PULMONIC VALVE: NORMAL AORTIC VALVE: BIO-PROSTHETIC PERICARDIAL EFFUSION: NONE AORTIC ROOT: NORMAL LEFT VENTRICULAR WALL MOTION: NORMAL DOPPLER/COLOR FLOW: MILD AORTIC STENOSIS. PEAK GRADIENT 27 mmHg. MEAN GRADIENT 15 mmHg. ESTIMATED AORTIC VALVE AREA 1.7 CENTIMETERS SQUARED. NO AORTIC REGURGITATION. MILD TRICUSPID REGURGITATION. NORMAL RIGHT VENTRICULAR SYSTOLIC PRESSURE. IMPAIRED LEFT VENTRICULAR RELAXATION. COMMENTS: NORMAL EJECTION FRAVTION. BIO-PROSTHETIC AORTIC VALVE WITH MILD STENOSIS AND NO AORTIC REGURGITATION. MILD TRICUSPID REGURGITATION. IMPAIRED LEFT VENTRICULAR RELAXATION. TECHNOLOGIST: KARENA DONALDSON
[2017-09-28] MEDS ORDERED: CLOPIDOGREL 75 MG TABLET PO ONE (12:23)
[2017-09-28 12:47] VITALS: BP 149/67
[2017-09-28 13:03] VITALS: TEMP 97.8
--- NOTE | 2017-09-28 13:53 | P.DS ---
Admission Date: 09/27/17 Discharge Date: 09/28/17 Disposition: ROUTINE DISCHARGE Discharge Condition: GOOD Reason for Admission: Generalized weakness Consultations: Neurologist Dr. Lackey - Problems (1) Aphasia Onset Date: 09/28/17 Current Visit: Yes Status: Acute (2) Headache Onset Date: 09/28/17 Current Visit: Yes Status: Acute (3) Right sided weakness Onset Date: 09/28/17 Current Visit: Yes Status: Acute (4) TIA (transient ischemic attack) Onset Date: 09/28/17 Current Visit: Yes Status: Acute Brief History of Present Illness: From H&P Patient is an 87-year-old female came to the hospital with dizziness and, headache, and weakness. States she was resting at home when she suddenly had pain to the left side of her neck which went up the left side of her head. She was aphasic and has some difficulty moving the right side of her body. She did not have any facial weakness. She takes a baby aspirin daily and she took a couple of more. She did not really Wanna communicate much when I came to talk to her. She stated she was tired but she was able to get the words out appropriately. She states her symptoms have pretty much resolved. At this time she possibly had a TIA. Her blood pressure is controlled. She will be admitted for further workup. Hospital Course: Patient is an 79-year-old female who came into the hospital for generalized weakness and a facial. Patient was brought in by the granddaughter for concerns of stroke. Patient was started on stroke guidelines. Should be noted that the patient states she has allergy to statins is unable to tolerated and does not wish to take any statins. Patient's symptoms of a fissure resolved she was worked up for stroke including MRI of the brain which showed no acute abnormalities. 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 Patient has been on a baby aspirin and was switched to Plavix. Patient states that she has seen advertisements on [employer] regarding ill effects of Plavix and does not wish to take the medication on a long-term basis. I explained to her the risks of not taking Plavix include further TIAs stroke leading to paralysis or even . She voiced understanding. Patient was seen by neurologist Dr. Lackey. her echocardiogram did not show any acute abnormalities. Ejection fraction was not depressed. She does have a porcine valve. Patient was then cleared for discharge from neurology standpoint. Her symptoms had resolved she was able to ambulate without any difficulty. She is tolerating her diet. Vital Signs/Physical Exam: Temp Pulse Resp BP Pulse Ox 97.8 F 73 21 H 149/67 H 94 09/28/17 12:00 09/28/17 12:00 09/28/17 12:00 09/28/17 12:46 09/28/17 12:00 General: Alert, In no apparent distress, Oriented x3 HEENT: Atraumatic, PERRLA, EOMI Neck: Supple, JVD not distended Respiratory: Clear to auscultation bilaterally, Normal air movement Cardiovascular: No edema, Normal pulses, Regular rate/rhythm, Normal S1 S2 Gastrointestinal: Normal bowel sounds, Soft and benign, Non-distended, No tenderness Musculoskeletal: No clubbing, No erythema, No tenderness Integumentary: No rashes, No erythema Neurological: Normal speech, Normal strength at 5/5 x4 extr, Normal tone, Cranial nerves 3-12 intact, Normal affect Laboratory Data at Discharge: WBC 8.2 K/uL (4.3-10.9) D 09/28/17 05:00 Hgb 9.4 g/dL (12.0-15.0) L 09/28/17 05:00 Hct 29.2 % (36.0-45.0) L 09/28/17 05:00 Plt Count 240 K/uL (152-406) 09/28/17 05:00 PT 11.2 SECONDS (9.5-12.5) 09/27/17 21:00 INR 0.95 09/27/17 21:00 Sodium 139 mmol/L (136-145) 09/28/17 05:00 Potassium 4.0 mmol/L (3.5-5.1) 09/28/17 05:00 BUN 21 mg/dL (7-18) H 09/28/17 05:00 Creatinine 0.80 mg/dL (0.55-1.3) 09/28/17 05:00 Glucose 85 mg/dL (74-106) 09/28/17 05:00 Magnesium 2.0 mg/dL (1.8-2.4) 09/27/17 21:00 Total Bilirubin 0.2 mg/dL (0.2-1.0) 09/28/17 05:00 AST 15 U/L (15-37) 09/28/17 05:00 ALT 9 U/L (12-78) L 09/28/17 05:00 Alkaline Phosphatase 94 U/L (45-117) 09/28/17 05:00 Troponin I < 0.02 ng/mL (0.0-0.045) 09/28/17 10:27 Triglycerides 63 mg/dL (<150) 09/28/17 05:00 Cholesterol 174 mg/dL (<200) 09/28/17 05:00 HDL Cholesterol 78 mg/dL (40-60) H 09/28/17 05:00 Cholesterol/HDL Ratio 2.23 09/28/17 05:00 Home Medications: ALPRAZolam [Xanax*] 0.5 mg PO BEDTIME PRN 05/01/12 Metoprolol Tartrate [Lopressor*] 25 mg PO DAILY 05/01/12 Amlodipine Besylate [Norvasc] 10 mg PO DAILY 09/27/17 Clopidogrel Bisulfate [Plavix*] 75 mg PO DAILY #30 tablet 09/28/17 New Medications: Clopidogrel Bisulfate [Plavix*] 75 mg PO DAILY #30 tablet Patient Discharge Instructions: f/up w PCP in 2-3 days. f/up w neurologist Dr. Lackey in 2 weeks. Return to Er for worsening condition Diet: AHA Activity: Ad cyn
[2017-09-28] MEDS ORDERED: ENOXAPARIN 40 MG/0.4 ML SQ SCH (17:00)
--- NOTE | 2017-09-28 17:22 | CON ---
Date of Consultation: 09/28/2017 Time Seen: 1220. Reason: TIA. History: An 87-year-old lady with a history of hypertension. She was in her usual state of health u ntil yesterday afternoon, when she had abrupt onset of inability to speak, was in the middle of the d ay. She was concerned. Her granddaughter whom she lives with, brought her to the emergency [facility]. The patient took 2 aspirin prior to leaving her home. By the time she had arrived in the emerge ncy department, problem was improving, so felt not to be a tPA candidate. There was also associated visual disturbance and right-sided weakness and clumsiness, but by this morning, the entire episode h as cleared and her workup reveals carotids with no stenosis. Brain MRI, no evidence of acute stroke, standard subcortical ischemic change. Echocardiogram, mild aortic stenosis, 1.7 cm2, bioprosthetic aortic valve. She is back to her baseline presently. Not normally on a statin. She states, she is allergic to statins. Consultation was requested. Past Medical History: As alluded to. Medications: Norvasc, Lopressor, aspirin, and Xanax. Allergies: EXTENSIVE, CEFUROXIME, CODEINE, PENICILLIN, NOVOCAIN, KEFLEX, STEROIDS, CODEINE, OPIATES AND THE PATIENT ALSO STATES STATINS. Social History: Lives with her granddaughter, normally independent with activities of daily living. Family History: Noncontributory. Review of Systems: General: General good health. Eyes: Diplopia long-standing after eye surgery. Ears, Nose, Throat: Negative. Cardiovascular: Hypertension. Pulmonary: Negative. GI: Negative. : Negative. Musculoskeletal: Negative. Neurologic: Transient aphasia with right-sided weakness is noted. Endocrine: Negative. Hematologic: Negative. Physical Examination: Vital Signs: On exam, she is afebrile, 149/67, 80, 18, pleasant, elderly lady, lying in bed, in no d istress. Heart: sinus rhythm. No carotid bruits. Lungs: Clear. Abdomen: Soft. Bowel sounds present. Neurologic: Awake, alert, oriented to time, person, place, and situation. Pupils equal, round, reac tive. Ocular motion full. Eason full. Postsurgical pupil on the left with slight ptosis, O.S. as well, long-standing per the patient. Extremity strength full. Sensation intact. Reflexes 1/4, symm etric. Toes are downgoing. Cerebellar exam demonstrates no ataxia. Gait is normal. Impression: Transient ischemic attack. Plan: The patient is allergic to statin, so stop aspirin. Start Plavix. We will give the Plavix he re now, observe the patient for several hours, and if she does not seem to have any problem with that medications i.e. the Plavix, I think she can safely go home on that and not aspirin. Thank you for the consult. GORDY Voice ID: [id number] Report ID: [id number]
[2017-09-28] MEDS ORDERED: ATORVASTATIN 40 MG TAB PO SCH (21:00)
[2017-09-29] MEDS ORDERED: CLOPIDOGREL 75 MG TABLET PO SCH (09:00)
[2017-09-29] MEDS ORDERED: METOPROLOL TAR 25 MG TAB PO SCH (09:00)
== END 2017-09-28 15:58 | disposition home or self-care (01) ==
LOC: ER 19:13 → ERHOLD 22:14 → 4TH 23:59
PROVIDERS: ADMIT Hospitalist; ATTEND Hospitalist
DX: G45.9 Transient cerebral ischemic attack, unspecified (principal); F41.9 Anxiety disorder, unspecified; I10 Essential (primary) hypertension; Z88.0 Allergy status to penicillin; Z85.3 Personal history of malignant neoplasm of breast; Z95.2 Presence of prosthetic heart valve
CPT/HCPCS: 36415; 70450; 70551; 71045; 80048; 80053; 80061; 80076; 82962; 83735; 84484 ×3; 85025 ×2; 85610; 93005; 93306; 93880; 99285; G0378 ×2; J7030 ×2; 81003; 81015; J2270

== ENCOUNTER 2017-12-28 11:28 | Emergency (ER) | payer OTHER ==
--- NOTE | 2017-12-28 12:40 | EDPHYS ---
Physician Documentation [facility] Name: Mirtha Valentin Age: 87 yrs Sex: Female : 1930 Arrival Date: 12/28/2017 Time: 11:33 Bed 16 Private MD: Brijesh Bush R ED Physician Jose D Hernandez HPI: 12/28 12:19 This 87 yrs old Female presents to ER via Ambulatory with complaints of gs Redness of Eye. 12:19 The patient is experiencing redness, to the left eye. Onset: The symptoms/episode gs began/occurred yesterday. Duration: the symptoms are continuous. Aggravated by nothing. Alleviated by nothing. Associated signs and symptoms:. Severity of symptoms: At their worst the symptoms were mild in the emergency department the symptoms are unchanged. The patient has not experienced similar symptoms in the past. Historical: - Allergies: 11:59 "steroids"; aa5 11:59 codine; aa5 11:59 Keflex; aa5 11:59 Opioids - Morphine Analogues; aa5 11:59 PENICILLINS; aa5 - PMHx: 11:59 Anxiety; Hypertension; CVA; aa5 11:59 TIA; aa5 - PSHx: 11:59 Mitral Valve sx; left masectomy; Appendectomy; aa5 - Immunization history:: Adult Immunizations unknown. - Social history:: The patient lives at home, Smoking status: Patient/guardian denies using tobacco. - Ebola Screening: : No symptoms or risks identified at this time. ROS: 12:19 All other systems are negative. gs Exam: 12:19 Head/Face: Normocephalic, atraumatic. Cardiovascular: Regular rate and rhythm with a gs normal S1 and S2. No gallops, murmurs, or rubs. Normal PMI, no JVD. No pulse deficits. Respiratory: Lungs have equal breath sounds bilaterally, clear to auscultation and percussion. No rales, rhonchi or wheezes noted. No increased work of breathing, no retractions or nasal flaring. Skin: Warm, dry with normal turgor. Normal color with no rashes, no lesions, and no evidence of cellulitis. MS/ Extremity: Pulses equal, no cyanosis. Neurovascular intact. Full, normal range of motion. 12:19 Eyes: Periorbital structures: appear normal, Pupils: no acute changes, Conjunctiva: subconjunctival hemorrhage(s), seen in the left eye, at 4 o'clock, SMALL. 12:19 Neuro: Exam negative for acute changes. Vital Signs: 12:00 BP 141 / 64; Pulse 63; Resp 16 S; Temp 98.3(TE); Pulse Ox 97% on R/A; Weight 56.7 kg aa5 (R); Pain 0/10; MDM: 12:16 Patient medically screened. 12:19 Data reviewed: vital signs, nurses notes. gs Administered Medications: No medications were administered Disposition: 12/28/17 12:39 Discharged to Home. Impression: Conjunctival hemorrhage, left eye. - Condition is Stable. - Discharge Instructions: Subconjunctival Hemorrhage. - Medication Reconciliation Form, Thank You Letter, Antibiotic Education, Prescription Opioid Use form. - Follow up: Private Physician; When: 2 - 3 days; Reason: Re-evaluation by your physician. Signatures: Dulce Sauceda RN RN aa5 Maria Esther Serrano RN RN HernandezJose D MD MD Corrections: (The following items were deleted from the chart) 12:49 12:39 12/28/2017 12:39 Discharged to Home. Impression: Conjunctival hemorrhage, left ph eye. Condition is Stable. Forms are Medication Reconciliation Form, Thank You Letter, Antibiotic Education, Prescription Opioid Use. Follow up: Private Physician; When: 2 - 3 days; Reason: Re-evaluation by your physician.
--- NOTE | 2017-12-28 12:40 | ER ---
Nurse's Notes [facility] Name: Mirtha Valentin Age: 87 yrs Sex: Female : 1930 Arrival Date: 12/28/2017 Time: 11:33 Bed 16 Private MD: Brijesh Bush R Diagnosis: Conjunctival hemorrhage, left eye Presentation: 12/28 11:58 Presenting complaint: Patient states: "my left eye is red and it's a little irritated". aa5 Pt reports symptoms began Thursday. Pt states "I am taking half a pill of Plavix 75 mg a day and aspirin". Transition of care: patient was not received from another setting of care. Onset of symptoms was December 2017. Risk Assessment: Do you want to hurt yourself or someone else? Patient reports no desire to harm self or others. Initial Sepsis Screen: Does the patient meet any 2 criteria? No. Patient's initial sepsis screen is negative. Does the patient have a suspected source of infection? No. Patient's initial sepsis screen is negative. Care prior to arrival: None. 11:58 Method Of Arrival: Ambulatory aa5 11:58 Acuity: SERAFIN 3 aa5 Historical: - Allergies: 11:59 "steroids"; aa5 11:59 codine; aa5 11:59 Keflex; aa5 11:59 Opioids - Morphine Analogues; aa5 11:59 PENICILLINS; aa5 - PMHx: 11:59 Anxiety; Hypertension; CVA; aa5 11:59 TIA; aa5 - PSHx: 11:59 Mitral Valve sx; left masectomy; Appendectomy; aa5 - Immunization history:: Adult Immunizations unknown. - Social history:: The patient lives at home, Smoking status: Patient/guardian denies using tobacco. - Ebola Screening: : No symptoms or risks identified at this time. Screenin:15 Abuse screen: Denies threats or abuse. Denies injuries from another. Nutritional ph screening: No deficits noted. Tuberculosis screening: No symptoms or risk factors identified. Fall Risk None identified. Assessment: 12:15 General: Appears in no apparent distress. comfortable, slender, well groomed, Behavior ph is calm, cooperative, appropriate for age, Denies fever, feeling ill. Pain: Denies pain. Neuro: Level of Consciousness is awake, alert, obeys commands, Oriented to person, place, time, situation. Cardiovascular: Capillary refill < 3 seconds Patient's skin is warm and dry. Respiratory: Airway is patent Respiratory effort is even, unlabored. EENT: Sclera/Cornea are reddened in left eye. Derm: Skin is intact, is healthy with good turgor, Skin is pink, warm \\T\\ dry. Vital Signs: 12:00 BP 141 / 64; Pulse 63; Resp 16 S; Temp 98.3(TE); Pulse Ox 97% on R/A; Weight 56.7 kg aa5 (R); Pain 0/10; ED Course: 10:15 Patient has correct armband on for positive identification. Bed in low position. Call ph light in reach. Side rails up X 1. 11:33 Patient arrived in ED. mr 11:33 Brijesh Bush MD is Private Physician. mr 11:58 Triage completed. aa5 11:58 Arm band placed on. aa5 12:05 Jose D Hernandez MD is Attending Physician. 12:37 Maria Esther Serrano RN is Primary Nurse. ph 12:49 No provider procedures requiring assistance completed. Patient did not have IV access ph during this emergency room visit. Administered Medications: No medications were administered Outcome: 12:39 Discharge ordered by . gs 12:49 Patient left the ED. ph 12:49 Discharged to home ambulatory, with family. ph 12:49 Condition: good 12:49 Discharge instructions given to patient, Instructed on discharge instructions, follow up and referral plans. Demonstrated understanding of instructions, follow-up care. Signatures: Zakia Marsh Audri, RN RN 5 Maria Esther Serrano, [facility] Jose D Hernandez MD MD Corrections: (The following items were deleted from the chart) :00 11:58 Presenting complaint: Patient states: "my left eye is red and it's a little aa5 irritated". Pt reports symptoms began Thursday 12:00 11:58 Acuity: SERAFIN 4 aa aa5
[2017-12-28 12:54] VITALS: BP 141/64; TEMP 98.3; O2SAT 97
--- OUTSIDE RECORDS SUMMARY | 2017-12-28 13:03 | XMS REPORT | Clinical Summary ---
:1930 Author Organization [facility] Address [address] [place] [address] Care Team Providers Name Role Phone Awa [...] temazepam 09/26/2016 Active (RESTORIL) 15 mg capsule aspirin (ECOTRIN) Take 81 mg by Active 81 MG enteric mouth daily. coated tablet clopidogrel Take 1 tablet 90 tablet 3 10/02/2017 10/02/2018 Active (PLAVIX) 75 mg (75 mg total) tabletIndications: by mouth Aortic valve daily. disorder, Transient cerebral ischemia, unspecified type nitrofurantoin, 11/05/2017 Active macrocrystal-monohy drate, (MACROBID) 100 MG capsule amLODIPine Take 1 tablet 90 tablet 3 12/08/2017 Active (NORVASC) 10 mg (10 mg total) tabletIndications: by mouth Transient cerebral daily. ischemia, unspecified type, S/P AVR metoprolol tartrate Take 1 tablet 180 tablet 3 12/08/2017 Active (LOPRESSOR) 25 mg (25 mg total) tabletIndications: by mouth 2 Transient cerebral (two) times a ischemia, day. unspecified type, S/P AVR amLODIPine Take 1 tablet 90 tablet 3 05/06/2016 05/06/2017 (NORVASC) 10 mg (10 mg total) tablet by mouth daily. amLODIPine Take 1 tablet 90 tablet 3 11/04/2016 12/08/2017 Discontinued (NORVASC) 10 mg (10 mg total) tablet by mouth daily. metoprolol tartrate Take 1 tablet 180 tablet 3 11/04/2016 11/09/2017 Discontinued (LOPRESSOR) 25 mg (25 mg total) tablet by mouth 2 (two) times a day. metoprolol tartrate TAKE ONE 180 tablet 2 11/09/2017 12/08/2017 Discontinued (LOPRESSOR) 25 mg TABLET BY tablet MOUTH TWICE A DAY Active Problems Problem Noted Date TIA (transient ischemic attack) 10/03/2017 Essential hypertension 10/03/2017 AVD (aortic valve disease) 11/04/2016 S/P AVR 05/01/2016 Encounters Date Type Specialty Care Team Description 12/08/2017 Office Visit Cardiology Tim Villagran MD Transient cerebral ischemia, unspecified type (Primary Dx); S/P AVR 11/24/2017 Office Visit Cardiology Tim Villagran MD S/P AVR (Primary Dx) ; Transient cerebral ischemia, unspecified type 11/09/2017 Refill Cardiology Tim Villagran MD Med Refill 10/27/2017 Orders Only Cardiology Tim Villagran MD 10/02/2017 Office Visit Cardiology Tim Villagran MD Transient cerebral ischemia, unspecified type (Primary Dx); Essential hypertension; Aortic valve disorder; S/P AVR; AVD (aortic valve disease) 05/26/2017 Office Visit Cardiology Tim Villagran MD S/P AVR (Primary Dx) after 12/27/2016 Family History Medical History Relation Name Comments No Known Problems Father No Known Problems Mother Relation Name Status Comments Father Mother Social History Tobacco Use Types Packs/Day Years Used Date Never Smoker Smokeless Tobacco: Never Used Alcohol Use Drinks/Week oz/Week Comments No Sex Assigned at Date Recorded Not on file Last Filed Vital Signs Vital Sign Reading Time Taken Blood Pressure 139/64 12/08/2017 1:29 PM CDT Pulse 72 12/08/2017 1:29 PM CDT Temperature - - Respiratory Rate - - Oxygen Saturation - - Inhaled Oxygen Concentration - - Weight 58.1 kg (128 lb) 12/08/2017 1:29 PM CDT Height 165.1 cm (5' 5") 12/08/2017 1:29 PM CDT Body Mass Index 21.3 12/08/2017 1:29 PM CDT Plan of Treatment Date Type Specialty Care Team Description 05/25/2018 Office Visit [facility]iology [facility] [address] [facility] [address] [place] [address] Health Maintenance Due Date Last Done Comments SHINGRIX VACCINE (#1) 1979 ZOSTER VACCINE 1989 PNEUMOCOCCAL POLYSACCHARIDE VACCINE AGE 65 AND OVER 1994 PNEUMOCOCCAL-13 1994 INFLUENZA VACCINE 11/04/2017 Procedures Procedure Name Priority Date/Time Associated Diagnosis Comments OBTAIN MEDICAL Routine 10/27/2017 12:00 RECORDS AM CDT ECG 12-LEAD Routine 10/02/2017 9:10 Essential Results for this AM CDT hypertension procedure are in the results section. after 12/27/2016 Results Obtain medical records (10/27/2017) Narrative Performed At ECG 12 lead (10/02/2017 9:10 AM) Ventricular rate 64 [facility] Atrial rate 64 [facility] KS interval 206 [facility] QRSD interval 118 [facility] QT interval 462 [facility] QTC interval 476 [facility] P axis 1 88 [facility] QRS axis 1 75 [facility] T wave axis 70 [facility] EKG impression Sinus rhythm with premature supraventricular complexes-Right bundle branch block-Abnormal ECG-In automated comparison with ECG of 2012 05:03,-premature supraventricular complexes are now present-T wave inversion no longer evident in Inferior H MUSE leads-T wave inversion no longer evident in Anterolateral leads- Performing Organization Address City/State/Zipcode Phone Number [facility] [address] [place] [address] after 12/27/2016 Insurance Payer Benefit Plan / Group Subscriber ID Type Phone Address [employer] xxxxxxxxx HMO Home: [address] [phone] [address]
== END 2017-12-28 12:49 | disposition home or self-care (01) ==
LOC: ER 11:28
DX: H11.32 Conjunctival hemorrhage, left eye (principal); Z88.0 Allergy status to penicillin; Z88.6 Allergy status to analgesic agent; Z88.1 Allergy status to other antibiotic agents
CPT/HCPCS: 99281

== ENCOUNTER 2018-03-22 17:28 | Observation (INO) | payer OTHER ==
--- OUTSIDE RECORDS SUMMARY | 2018-03-22 17:33 | XMS REPORT | Clinical Summary ---
:1930 Author Organization [facility] Address [address] [place] [address] Care Team Providers Name Role Phone Awa Bush MD Primary Care Provider Allergies Active Allergy Reactions Severity Noted Date Comments Diltiazem Hcl Hives 11/03/2015 Cefuroxime Hives 11/03/2015 Ciprofloxacin Hives 11/03/2015 Codeine Hives 11/03/2015 Procaine GI Intolerance 11/03/2015 Penicillin G Acetaminophen GI Intolerance 11/03/2015 vomiting Medications Medication Sig Dispensed Refills Start Date End Date Status ALPRAZolam (XANAX) Take 0.5 mg 0 Active 0.5 MG tablet by mouth nightly. zolpidem (AMBIEN) 0 03/25/2016 Active 5 MG tablet temazepam 0 09/26/2016 Active (RESTORIL) 15 mg capsule aspirin (ECOTRIN) Take 81 mg by 0 Active 81 MG enteric mouth daily. coated tablet clopidogrel Take 1 tablet 90 tablet 3 10/02/2017 10/02/2018 Active (PLAVIX) 75 mg (75 mg total) tabletIndications: by mouth Aortic valve daily. disorder, Transient cerebral ischemia, unspecified type nitrofurantoin, 0 11/05/2017 Active macrocrystal-monoh ydrate, (MACROBID) 100 MG capsule amLODIPine Take 1 tablet 90 tablet 3 12/08/2017 Active (NORVASC) 10 mg (10 mg total) tabletIndications: by mouth Transient cerebral daily. ischemia, unspecified type, S/P AVR metoprolol Take 1 tablet 180 tablet 3 12/08/2017 Active tartrate (25 mg total) (LOPRESSOR) 25 mg by mouth 2 tabletIndications: (two) times a Transient cerebral day. ischemia, unspecified type, S/P AVR amLODIPine Take 1 tablet 90 tablet 3 05/06/2016 05/06/2017 (NORVASC) 10 mg (10 mg total) tablet by mouth daily. amLODIPine Take 1 tablet 90 tablet 3 11/04/2016 12/08/2017 Discontinued (NORVASC) 10 mg (10 mg total) tablet by mouth daily. metoprolol Take 1 tablet 180 tablet 3 11/04/2016 11/09/2017 Discontinued tartrate (25 mg total) (LOPRESSOR) 25 mg by mouth 2 tablet (two) times a day. metoprolol TAKE ONE 180 tablet 2 11/09/2017 12/08/2017 Discontinued tartrate TABLET BY (LOPRESSOR) 25 mg MOUTH TWICE A tablet DAY Active Problems Problem Noted Date TIA [...] Villagran MD S/P AVR (Primary Dx) after 03/21/2017 Family History Medical History Relation Name Comments No Known Problems Father No Known Problems Mother Relation Name Status Comments Father Mother Social History Tobacco Use Types Packs/Day Years Used Date Never Smoker Smokeless Tobacco: Never Used Alcohol Use Drinks/Week oz/Week Comments No Sex Assigned at Date Recorded Not on file Job Start Date Occupation Industry Not on file Not on file Not on file Travel History Travel Start Travel End No recent travel history available. Last Filed Vital Signs Vital Sign Reading [...] 05/25/2018 Office Visit Cardiology Tim Villagran MD [address] [address] Health Maintenance Due Date Last Done Comments SHINGLES VACCINES (1 of 2) 1979 PNEUMOCOCCAL POLYSACCHARIDE VACCINE AGE 65 AND OVER 1994 PNEUMOCOCCAL-13 1994 INFLUENZA VACCINE 11/04/2017 Procedures Procedure Name Priority Date/Time Associated Diagnosis Comments OBTAIN MEDICAL Routine 10/27/2017 RECORDS ECG 12-LEAD Routine 10/02/2017 9:10 Essential Results for this AM CDT hypertension procedure are in the results section. after 03/21/2017 Results Obtain medical records (10/27/2017) Narrative Performed At ECG 12 lead (10/02/2017 9:10 AM CDT) Ventricular rate 64 [facility] Atrial rate 64 [facility] LA interval 206 [facility] QRSD interval 118 [...] wave inversion no longer evident in Inferior [facility] leads-T wave inversion no longer evident in Anterolateral leads- Performing Organization Address City/State/Zipcode Phone Number [facility] [employer] [address] [place] [address] after 03/21/2017 Insurance Payer Benefit Plan / Group Subscriber ID Type Phone Address [employer] xxxxxxxxx HMO Advance Directives Patient has advance care planning documents on file. For more information, please contact:Erasto Chicas[address] [place] [address]
[2018-03-22 18:22] LABS: Absolute Lymphocytes (CBC) 0.8 K/uL (0.7-4.9); Absolute Monocytes 1.5 K/uL (0.1-1.3); Absolute Neutrophil 15.3 K/uL (1.8-8.0); Basophils % 0.2 % (0-1.3); Hematocrit 34.4 % (36.0-45.0); Lymphocytes % 4.6 % (15.3-44.8); MPV 8.4 fL (7.6-11.3); Monocytes % 8.4 % (3.3-12.3); RBC Red Blood Cell Count 3.88 M/uL (3.86-4.86)
--- NOTE | 2018-03-22 18:23 | EDPHYS ---
Physician Documentation [facility] Name: Mirtha Valentin Age: 88 yrs Sex: Female : 1930 Arrival Date: 03/22/2018 Time: 17:32 Bed 23 Private MD: ED Physician Kun Novak HPI: 03/22 18:00 This 88 yrs old Female presents to ER via Ambulatory with complaints of trev Breathing Difficulty, Cough. 18:00 The patient has shortness of breath at rest, with light activity. Onset: The trev symptoms/episode began/occurred 3 day(s) ago. Duration: The symptoms are continuous, and are steadily getting worse. The patient's shortness of breath is aggravated by nothing, is alleviated by nothing. Associated signs and symptoms: The patient has no apparent associated signs or symptoms. Severity of symptoms: At their worst the symptoms were mild in the emergency department the symptoms are unchanged. The patient has not experienced similar symptoms in the past. Historical: - Allergies: 17:35 "steroids"; hj 17:35 codine; hj 17:35 Keflex; hj 17:35 Opioids - Morphine Analogues; hj 17:35 PENICILLINS; hj - PMHx: 17:35 Anxiety; CVA; Hypertension; TIA; hj - PSHx: 17:35 Mitral Valve sx; left masectomy; Appendectomy; hj - Immunization history:: Adult Immunizations up to date. - Social history:: Smoking status: Patient/guardian denies using tobacco, Patient/guardian denies using alcohol. - Ebola Screening: : Patient negative for fever greater than or equal to 101.5 degrees Fahrenheit, and additional compatible Ebola Virus Disease symptoms Patient denies exposure to infectious person Patient denies travel to an Ebola-affected area in the 21 days before illness onset. - Family history:: not pertinent. ROS: 18:00 Constitutional: Negative for fever, chills, and weight loss, Eyes: Negative for injury, trev pain, redness, and discharge, ENT: Negative for injury, pain, and discharge, Neck: Negative for injury, pain, and swelling, Cardiovascular: Negative for chest pain, palpitations, and edema, Abdomen/GI: Negative for abdominal pain, nausea, vomiting, diarrhea, and constipation, Back: Negative for injury and pain, : Negative for injury, bleeding, discharge, and swelling, MS/Extremity: Negative for injury and deformity, Skin: Negative for injury, rash, and discoloration, Neuro: Negative for headache, weakness, numbness, tingling, and seizure, Psych: Negative for depression, anxiety, suicide ideation, homicidal ideation, and hallucinations, Allergy/Immunology: Negative for hives, rash, and allergies, Endocrine: Negative for neck swelling, polydipsia, polyuria, polyphagia, and marked weight changes, Hematologic/Lymphatic: Negative for swollen nodes, abnormal bleeding, and unusual bruising. 18:00 Respiratory: Positive for cough, shortness of breath, wheezing, expiratory. Exam: 18:00 Constitutional: This is a well developed, well nourished patient who is awake, alert, trev and in no acute distress. Head/Face: Normocephalic, atraumatic. Eyes: Pupils equal round and reactive to light, extra-ocular motions intact. Lids and lashes normal. Conjunctiva and sclera are non-icteric and not injected. Cornea within normal limits. Periorbital areas with no swelling, redness, or edema. ENT: Nares patent. No nasal discharge, no septal abnormalities noted. Tympanic membranes are normal and external auditory canals are clear. Oropharynx with no redness, swelling, or masses, exudates, or evidence of obstruction, uvula midline. Mucous membranes moist. Neck: Trachea midline, no thyromegaly or masses palpated, and no cervical lymphadenopathy. Supple, full range of motion without nuchal rigidity, or vertebral point tenderness. No Meningismus. Chest/axilla: Normal chest wall appearance and motion. Nontender with no deformity. No lesions are appreciated. Cardiovascular: Regular rate and rhythm with a normal S1 and S2. No gallops, murmurs, or rubs. Normal PMI, no JVD. No pulse deficits. Abdomen/GI: Soft, non-tender, with normal bowel sounds. No distension or tympany. No guarding or rebound. No evidence of tenderness throughout. Back: No spinal tenderness. No costovertebral tenderness. Full range of motion. Skin: Warm, dry with normal turgor. Normal color with no rashes, no lesions, and no evidence of cellulitis. MS/ Extremity: Pulses equal, no cyanosis. Neurovascular intact. Full, normal range of motion. Neuro: Awake and alert, GCS 15, oriented to person, place, time, and situation. Cranial nerves II-XII grossly intact. Motor strength 5/5 in all extremities. Sensory grossly intact. Cerebellar exam normal. Normal gait. Psych: Awake, alert, with orientation to person, place and time. Behavior, mood, and affect are within normal limits. 18:00 Respiratory: mild respiratory distress is noted, Respirations: labored breathing, that is mild, Breath sounds: bronchial sounds, rhonchi, + upper airway congestion. wheezing: expiratory that is mild. Vital Signs: 17:36 BP 116 / 58; Pulse 112; Resp 22; Temp 99.3(TE); Pulse Ox 92% on R/A; Weight 55.79 kg; hj Height 5 ft. 5 in. (165.10 cm); 17:44 Pulse Ox 95% on 2 lpm NC; hj 19:16 BP 117 / 74; Pulse 72; Resp 18; Pulse Ox 97% on 2 lpm NC; jb5 20:09 BP 110 / 45; Pulse 70; Resp 16; Pulse Ox 96% on 2 lpm NC; ls4 17:36 Body Mass Index 20.47 (55.79 kg, 165.10 cm) hj MDM: 17:38 Patient medically screened. [facility] 18:02 Data reviewed: vital signs, nurses notes, lab test result(s), EKG, radiologic studies, trev plain films. 03/22 18:00 Order name: Basic Metabolic Panel [facility] 03/22 18:00 Order name: CBC with Diff [facility] 03/22 18:00 Order name: LFT's [facility] 03/22 18:00 Order name: Magnesium [facility] 03/22 18:00 Order name: NT PRO-BNP [facility] 03/22 18:00 Order name: PT-INR; Complete Time: 18:33 [facility] 03/22 18:00 Order name: Troponin (emerg Dept Use Only) [facility] 03/22 18:00 Order name: Lipase [facility] 03/22 18:00 Order name: Blood Culture Adult (2) [facility] 03/22 18:00 Order name: Influenza Screen (a \\T\\ B) [facility] 03/22 18:00 Order name: Urine Culture [facility] 03/22 18:01 Order name: Basic Metabolic Panel [facility] 03/22 18:01 Order name: CBC with Automated Diff ED[facility] 03/22 18:27 Order name: Manual Differential [facility] 03/22 18:00 Order name: XRAY Chest (1 view) [facility] 03/22 18:00 Order name: EKG; Complete Time: 18:01 [facility] 03/22 18:00 Order name: Cardiac monitoring; Complete Time: 19:17 [facility] 03/22 18:00 Order name: EKG - Nurse/Tech; Complete Time: 19:10 [facility] 03/22 18:00 Order name: IV Saline Lock; Complete Time: 18:16 [facility] 03/22 18:00 Order name: Labs collected and sent; Complete Time: 18:16 [facility] 03/22 18:00 Order name: O2 Per Protocol; Complete Time: 18:16 [facility] 03/22 18:00 Order name: O2 Sat Monitoring; Complete Time: 18:16 [facility] 03/22 18:00 Order name: Urine Dipstick-Ancillary (obtain specimen) [facility] Administered Medications: 18:34 Drug: Tamiflu 75 mg Route: PO; ls4 19:00 Follow up: Response: No adverse reaction ls4 18:35 Drug: NS 0.9% 1000 ml Route: IV; Rate: 125 ml/hr; Site: right wrist; ls4 19:34 Follow up: IV Status: Completed infusion; IV Intake: 125ml ls4 18:35 Drug: levofloxacin 500 mg Volume: 100 ml; Route: IVPB; Infused Over: 60 mins; Site: ls4 right wrist; 19:33 Follow up: Response: No adverse reaction; IV Status: Completed infusion ls4 18:49 Drug: Xopenex 1.25 mg Route: Inhalation; ls4 18:49 Drug: AtroVENT Aerosol 0.5 mg Route: Inhalation; ls4 19:17 Follow up: Response: No adverse reaction ls4 19:19 Not Given (Patient Refused): Tylenol 650 mg PO once ls4 Disposition: 03/22/18 18:22 Hospitalization ordered by Fallon Vasques for Inpatient Admission. Preliminary diagnosis are Idiopathic pulmonary fibrosis, Dyspnea, Fever, unspecified, Weakness, Acute upper respiratory infection, unspecified, Elevated white blood cell count. - Bed requested for Telemetry/MedSurg (Inpatient). - Status is Inpatient Admission. ls4 - Condition is Fair. - Problem is new. - Symptoms have improved. UTI on Admission? No Signatures: Dispatcher [employer] EDMS Alex, Soraya, RN RN kl Kishore, Kun, MD MD trev Jasiel, Yared, RN RN hj Luis, Priscila, RN RN ls4 Corrections: (The following items were deleted from the chart) 18:34 18:22 Hospitalization Ordered by Fallon Vasques MD for Inpatient Admission. Preliminary trev diagnosis is Idiopathic pulmonary fibrosis; Dyspnea; Fever, unspecified; Weakness; Acute upper respiratory infection, unspecified. Bed requested for Telemetry/MedSurg (Inpatient). Status is Inpatient Admission. Condition is Fair. Problem is new. Symptoms have improved. UTI on Admission? No. trev 19:21 18:34 03/22/2018 18:22 Hospitalization Ordered by Fallon Vasques MD for Inpatient kl Admission. Preliminary diagnosis is Idiopathic pulmonary fibrosis; Dyspnea; Fever, unspecified; Weakness; Acute upper respiratory infection, unspecified; Elevated white blood cell count. Bed requested for Telemetry/MedSurg (Inpatient). Status is Inpatient Admission. Condition is Fair. Problem is new. Symptoms have improved. UTI on Admission? No. trev 20:45 19:21 03/22/2018 18:22 Hospitalization Ordered by Fallon Vasques MD for Inpatient ls4 Admission. Preliminary diagnosis is Idiopathic pulmonary fibrosis; Dyspnea; Fever, unspecified; Weakness; Acute upper respiratory infection, unspecified; Elevated white blood cell count. Bed requested for Telemetry/MedSurg (Inpatient). Status is Inpatient Admission. Condition is Fair. Problem is new. Symptoms have improved. UTI on Admission? No. kl
--- NOTE | 2018-03-22 18:23 | ER ---
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 Transition of care: patient was not received from another setting of care. Onset of symptoms was March 22, 2018. Risk Assessment: Do you want to hurt yourself or someone else? Patient reports no desire to harm self or others. Initial Sepsis Screen: Does the patient meet any 2 criteria? No. Patient's initial sepsis screen is negative. Does the patient have a suspected source of infection? No. Patient's initial sepsis screen is negative. Care prior to arrival: None. 17:32 Method Of Arrival: Ambulatory 17:32 Acuity: SERAFIN 3 hj Triage Assessment: 17:35 General: Appears in no apparent distress. uncomfortable, Behavior is calm, cooperative, hj appropriate for age. Pain: Complains of pain in chest. Respiratory: Reports labored breathing pain with cough pain with respiration Onset: The symptoms/episode began/occurred the patient has mild shortness of breath. Historical: - Allergies: 17:35 "steroids"; hj 17:35 codine; 17:35 Keflex; 17:35 Opioids - Morphine Analogues; 17:35 PENICILLINS; hj - PMHx: 17:35 Anxiety; CVA; Hypertension; TIA; hj - PSHx: 17:35 Mitral Valve sx; left masectomy; Appendectomy; hj - Immunization history:: Adult Immunizations up to date. - Social history:: Smoking status: Patient/guardian denies using tobacco, Patient/guardian denies using alcohol. - Ebola Screening: : Patient negative for fever greater than or equal to 101.5 degrees Fahrenheit, and additional compatible Ebola Virus Disease symptoms Patient denies exposure to infectious person Patient denies travel to an Ebola-affected area in the 21 days before illness onset. - Family history:: not pertinent. Screenin:35 Abuse screen: Denies threats or abuse. Denies injuries from another. Nutritional hj screening: No deficits noted. Tuberculosis screening: No symptoms or risk factors identified. Fall Risk None identified. Assessment: 17:36 Cardiovascular: Rhythm is. Respiratory: Airway is patent Respiratory effort is even, hj unlabored, Respiratory pattern is regular, symmetrical, Vital Signs: 17:36 BP 116 / 58; Pulse 112; Resp 22; Temp 99.3(TE); Pulse Ox 92% on R/A; Weight 55.79 kg; hj Height 5 ft. 5 in. (165.10 cm); 17:44 Pulse Ox 95% on 2 lpm NC; hj 19:16 BP 117 / 74; Pulse 72; Resp 18; Pulse Ox 97% on 2 lpm NC; jb5 20:09 BP 110 / 45; Pulse 70; Resp 16; Pulse Ox 96% on 2 lpm NC; ls4 17:36 Body Mass Index 20.47 (55.79 kg, 165.10 cm) hj ED Course: 17:32 Patient arrived in ED. hj 17:34 Triage completed. hj 17:36 Arm band placed on right wrist. hj 17:36 Patient has correct armband on for positive identification. Placed in gown. Bed in low hj position. Call light in reach. Side rails up X 1. Adult w/ patient. 17:38 Kun Novak MD is Attending Physician. [facility] 17:44 Priscila Smith, OLIVE is Primary Nurse. ls4 18:05 Initial lab(s) drawn, by me, First set of blood cultures drawn by me, Second set of ls4 blood cultures drawn Flu and/or RSV swab sent to lab. Inserted saline lock: 22 gauge in right wrist, using aseptic technique. 18:17 Basic Metabolic Panel Sent. ls4 18:17 CBC with Diff Sent. ls4 18:21 Fallon Vasques MD is Hospitalizing Provider. [facility] 18:22 XRAY Chest (1 view) In Process Unspecified. EDMS 18:49 Manual Differential Sent. ls4 20:34 No provider procedures requiring assistance completed. Patient admitted, IV remains in ls4 place. intact. Administered Medications: 18:34 Drug: Tamiflu 75 mg Route: PO; ls4 19:00 Follow up: Response: No adverse reaction ls4 18:35 Drug: NS 0.9% 1000 ml Route: IV; Rate: 125 ml/hr; Site: right wrist; ls4 19:34 Follow up: IV Status: Completed infusion; IV Intake: 125ml ls4 18:35 Drug: levofloxacin 500 mg Volume: 100 ml; Route: IVPB; Infused Over: 60 mins; Site: ls4 right wrist; 19:33 Follow up: Response: No adverse reaction; IV Status: Completed infusion ls4 18:49 Drug: Xopenex 1.25 mg Route: Inhalation; ls4 18:49 Drug: AtroVENT Aerosol 0.5 mg Route: Inhalation; ls4 19:17 Follow up: Response: No adverse reaction ls4 19:19 Not Given (Patient Refused): Tylenol 650 mg PO once ls4 Intake: 19:34 IV: 125ml; Total: 125ml. ls4 Outcome: 18:22 Decision to Hospitalize by Provider. trev 20:36 Admitted to Med/surg accompanied by nurse, via wheelchair, room 208, with chart, Report ls4 called to DINA 20:36 Condition: stable 20:45 Patient left the ED. ls4 Signatures: Dispatcher [employer] EDMS Kun Novak MD MD cha Joaquin, Henry, RN RN Evelyn Ford Lisa, RN RN ls4 Corrections: (The following items were deleted from the chart) 17:38 17:36 Pulse 100bpm; Resp 22bpm; Pulse Ox 92% RA; Temp 99.3F Temporal; 55.79 kg; Height hj 5 ft. 5 in.; BMI: 20.4; hj 19:16 18:34 Tylenol 650 mg PO ls4 ls4
[2018-03-22 18:25] LABS: Protime INR 1.15
[2018-03-22] MEDS ORDERED: IPRATROPIUM BROM 0.5MG/2.5ML ONE (18:29)
[2018-03-22] MEDS ORDERED: OSELTAMIVIR 75 MG CAP ONE (18:29)
[2018-03-22] MEDS ORDERED: ACETAMINOPHEN 325 MG TABLET ONE (18:30)
[2018-03-22] MEDS ORDERED: LEVALBUTEROL 1.25 MG/3 ML NEB ONE (18:30)
[2018-03-22] MEDS ORDERED: NA CHLORIDE 0.9% 1,000 ML ONE ×2 (18:30→18:31)
[2018-03-22] MEDS ORDERED: Levofloxacin500mg IV 500 MG/100 ML BAG IV ONE (18:30)
[2018-03-22 18:43] LABS: ALT/SGPT 16 U/L (12-78); AST/SGOT 22 U/L (15-37); Albumin 2.8 g/dL (3.4-5.0); Alkaline Phosphatase 128 U/L (45-117); BUN Blood Urea Nitrogen 20 mg/dL (7-18); Bicarbonate 22 mmol/L (21-32); Bilirubin Direct 0.2 mg/dL (0-0.2); Bilirubin Total 0.6 mg/dL (0.2-1.0); Glucose Level 206 mg/dL (74-106); Lipase 52 U/L (73-393); Magnesium 1.9 mg/dL (1.8-2.4); NT PRO-BNP 5098 pg/mL (<450); Potassium 3.6 mmol/L (3.5-5.1); Protein, Total 8.1 g/dL (6.4-8.2); Sodium Level 133 mmol/L (136-145); Troponin (Emerg Dept Use Only) < 0.02 ng/mL (0.0-0.045)
--- NOTE | 2018-03-22 19:18 | RAD REPORT ---
EXAM DESCRIPTION: RAD - Chest Single View - 03/22/2018 6:21 pm CLINICAL HISTORY: Cough, dyspnea COMPARISON: September 27 TECHNIQUE: AP portable chest image was obtained 1813 hours . FINDINGS: Chronic interstitial lung disease is present not clearly different from comparison. Severi ty of disease could mask early interstitial edema or infiltrate. Patient has dense costochondral calc ifications. Sternotomy wires are in place. Heart and vasculature are normal. No measurable pleural ef fusion and no pneumothorax. No acute bony abnormality seen. No acute aortic findings suspected. IMPRESSION: Extensive chronic interstitial lung disease similar to September 27. Severity of disease can mask early interstitial edema or infiltrate.
[2018-03-22 19:30] LABS: Blood Morphology Comment NOT SEEN (NOT SEEN); Platelet Estimate ADEQ
[2018-03-22] MEDS ORDERED: ONDANSETRON 4 MG/2 ML VIAL IV PRN (21:02)
[2018-03-22] MEDS ORDERED: ACETAMINOPHEN 500 MG TAB PO PRN (21:02)
[2018-03-22] MEDS: NA CHLORIDE 0.9% 1,000 ML IV SCH (21:31)
[2018-03-22] MEDS ORDERED: ALPRAZOLAM 0.5 MG TABLET PO ONE (22:12)
[2018-03-23 01:44] VITALS: BMI 20.5
--- NOTE | 2018-03-23 06:00 | EKG ---
Test Date: 2018-03-22 Test Time: 19:04:15 Senior Label Specialist: ASNDRA MEASUREMENT RESULTS: Intervals: Rate: 100 [place]: QRSD: 108 QT: 366 QTc: 472 [place]: P: [place]: QRS: 78 T: 32 INTERPRETIVE STATEMENTS: Atrial fibrillation Right bundle branch block Abnormal ECG Compared to ECG 09/27/2017 19:44:47 Sinus rhythm no longer present Myocardial infarct finding no longer present Electronically Signed On 03-23-18 05:59:59 ENGINEERING DESIGN MANAGER by Lex Ag
[2018-03-23 06:17] LABS: Absolute Lymphocytes (CBC) 1.6 K/uL (0.7-4.9); Absolute Monocytes 1.2 K/uL (0.1-1.3); Absolute Neutrophil 10.9 K/uL (1.8-8.0); Basophils % 0.3 % (0-1.3); Eosinophils % 0.1 % (0-4.4); Hematocrit 33.8 % (36.0-45.0); Lymphocytes % 11.4 % (15.3-44.8); MPV 8.9 fL (7.6-11.3); Monocytes % 8.6 % (3.3-12.3)
[2018-03-23 06:24] LABS: Potassium 3.9 mmol/L (3.5-5.1)
[2018-03-23] MEDS: METOPROLOL TAR 25 MG TAB PO SCH ×2 (07:00→17:49)
[2018-03-23 07:55] LABS: Urine Appearance CLEAR; Urine Bilirubin NEGATIVE (NEG); Urine Blood NEGATIVE (NEG); Urine Color YELLOW; Urine Glucose NEGATIVE (NEG); Urine Protein 1+ (NEG); Urine Urobilinogen 0.2 mg/dL (0.2-1.0)
[2018-03-23 09:17] LABS: Urine Microscopic Reflex ORDER UMIC
[2018-03-23 09:19] LABS: Urine Bacteria 20-50 /HPF (<20); Urine Culture Reflex Order REFLEXED; Urine RBC NONE SEEN /HPF (NONE SEEN)
[2018-03-23] MEDS ORDERED: LOPERAMIDE HCL 2 MG CAPSULE PO PRN (09:24)
--- NOTE | 2018-03-23 09:37 | P.HP ---
Certification for Inpatient Patient admitted to: Observation With expected LOS: <2 Midnights Patient will require the following post-hospital care: None Practitioner: I am a practitioner with admitting privileges, knowledge of patient current condition, hospital course, and medical plan of care. Services: Services provided to patient in accordance with Admission requirements found in Title 42 Section 412.3 of the Code of Federal Regulations Patient History Date of Service: 03/22/18 Reason for admission: Shortness of breath History of Present Illness: Patient is an 88-year-old female came to the hospital with shortness of breath. Patient been coughing and congested and she was having difficulty breathing. Her symptoms got progressively worse over the last 3 days. She came into the ER for further evaluation. In the ER her workup revealed extensive chronic lung disease. She has a history of pulmonary fibrosis which appears to have been exacerbated. In the ER she was still very short of breath. Patient was also hypoxic and she has generalized weakness. She will need evaluation over the next 24-48 hrs. If she does not improve and she remains slightly hypoxic may need to consider inpatient stay. Allergies acetaminophen [From Tylenol] Allergy (Unknown, Verified 03/23/18 00:10) Nausea/Vomiting cefuroxime Allergy (Unknown, Verified 03/23/18 00:10) Itching codeine [Codeine] Allergy (Unknown, Verified 03/23/18 00:10) Anaphylaxis Penicillins Allergy (Unknown, Verified 03/23/18 00:10) Anaphylaxis procaine HCl [From Novocain] Allergy (Unknown, Verified 03/23/18 00:10) Itching cephalexin [From Keflex] Allergy (Verified 03/23/18 00:10) Anaphylaxis "steroids" Allergy (Uncoded 09/27/17 22:47) Anaphylaxis Opioids - Morphine Allergy (Uncoded 09/27/17 22:47) Anaphylaxis Home Medications: ALPRAZolam [Xanax] 0.5 mg PO BEDTIME PRN 03/23/18 Amlodipine Besylate 10 mg PO DAILY 03/23/18 Aspirin [Low Dose Aspirin EC] 81 mg PO DAILY 03/23/18 Clopidogrel Bisulfate [Plavix] 75 mg PO DAILY 03/23/18 Loperamide HCl [Anti-Diarrheal] 2 tab PO DAILY PRN 03/23/18 Metoprolol Tartrate [Lopressor] 25 mg PO BID 03/23/18 - Past Medical/Surgical History Has patient received pneumonia vaccine in the past: Yes Diabetic: No -: Anxiety -: Hypertension -: Breast Cancer -: CVA -: TIA -: Mitral Valve replacement -: Left Mastectomy -: Appendectomy -: hysterectomy - Family History Father Medical History: Stroke - Social History Smoking Status: Never smoker Alcohol use: No CD- Drugs: No Caffeine use: Yes Place of Residence: Home Review of Systems 10-point ROS is otherwise unremarkable Physical Examination - Vital Signs Temperature: 97.5 F Blood Pressure: 118/58 Pulse: 91 Respirations: 16 Pulse Ox (%): 94 - Physical Exam General: Alert, In no apparent distress, Oriented x3 HEENT: Atraumatic, PERRLA, Mucous membr. moist/pink, EOMI, Sclerae nonicteric Neck: Supple, 2+ carotid pulse no bruit, No LAD, Without JVD or thyroid abnormality Respiratory: Diminished, Expiratory wheezes Cardiovascular: Regular rate/rhythm, Normal S1 S2, No murmurs Gastrointestinal: Normal bowel sounds, Soft and benign, Non-distended, No tenderness Musculoskeletal: No clubbing, No swelling, No tenderness Integumentary: No rashes Neurological: Normal gait, Normal speech, Normal strength at 5/5 x4 extr, Normal tone, Sensation intact, Cranial nerves 3-12 intact, Normal affect Lymphatics: No axilla or inguinal lymphadenopathy - Studies Laboratory Data (last 24 hrs) 03/22/18 18:05: PT 13.6 H, INR 1.15 03/22/18 18:05: WBC 17.6 H, Hgb 11.4 L, Hct 34.4 L, Plt Count 245 03/22/18 18:05: Sodium 133 L, Potassium 3.6, BUN 20 H, Creatinine 1.30, Glucose 206 H, Magnesium 1.9, Total Bilirubin 0.6, AST 22, ALT 16, Alkaline Phosphatase 128 H, Lipase 52 L Microbiology Data (last 24 hrs): 03/22/18 17:55 Blood - Blood Anaerobic Blood Culture - Final 03/22/18 18:05 Blood - Blood Anaerobic Blood Culture - Final 03/22/18 18:41 Nasopharnyx Influenza Type A Antigen Screen - Final 03/22/18 18:41 Nasopharnyx Influenza Type B Antigen Screen - Final Assessment & Plan - Problems (Diagnosis) (1) Hypoxemia Current Visit: Yes Status: Acute (2) Pulmonary fibrosis Current Visit: Yes Status: Acute (3) SOB (shortness of breath) Current Visit: Yes Status: Acute (4) Leukocytosis Current Visit: Yes Status: Acute (5) Hyponatremia Current Visit: Yes Status: Acute (6) Urinary tract infection Current Visit: Yes Status: Acute - Plan 1. Continue with IV antibiotics 2. Awaiting sputum and blood culture 3. Repeat chest x-ray 4. Continue with nebs and IV steroids; patient will need pulmonary follow-up 5. O2 per protocol; if patient oxygenation is not improving then will recommend changing to inpatient 6. Continue with gentle hydration 7. Repeat labs including CBC and electrolytes, renal function in a.m. 8. GI and DVT prophylaxis Discharge Plan: Home Plan to discharge in: 48 Hours - Advance Directives Does patient have a Living Will: Yes Does patient have a Durable POA for Healthcare: Yes - Code Status/Comfort Care Code Status Assessed: Yes Code Status: Full Code Critical Care: No Time Spent Managing PTS Care (In Minutes): 40
[2018-03-23] MEDS ORDERED: PHENOL 1.4% ORAL SPRAY 180ML MM PRN (09:50)
[2018-03-23] MEDS: NA CHLORIDE 0.9% 1,000 ML IV SCH ×2 (10:22→20:30)
[2018-03-23] MEDS: BENZONATATE 100 MG CAP PO PRN (14:18)
[2018-03-23] MEDS: LEVALBUTEROL 0.63 MG/3 ML NEB NEB PRN ×2 (17:17→20:20)
[2018-03-23] MEDS ORDERED: LEVALBUTEROL 0.63 MG/3 ML NEB ONE (17:23)
--- NOTE | 2018-03-23 17:30 | P.PN ---
Subjective Date of Service: 03/24/18 Chief Complaint: Shortness of breath Subjective: No new changes, No C/O voiced, Improving Patient seen and examined at bedside. No family at bedside. Chart reviewed and case discussed with nursing staff. Review of Systems As noted Physical Examination - Vital Signs Temperature: 99.3 F Blood Pressure: 124/50 Pulse: 89 Respirations: 24 Pulse Ox (%): 91 - Physical Exam General: Alert, In no apparent distress, Oriented x3 HEENT: Atraumatic, PERRLA, EOMI Neck: Supple, JVD not distended Respiratory: Expiratory wheezes Cardiovascular: Regular rate/rhythm, Normal S1 S2 Gastrointestinal: Normal bowel sounds, No tenderness Musculoskeletal: No tenderness Integumentary: No rashes Neurological: Normal speech, Normal tone, Normal affect Lymphatics: No axilla or inguinal lymphadenopathy - Studies Laboratory Data (last 24 hrs) 03/22/18 18:05: PT 13.6 H, INR 1.15 03/22/18 18:05: WBC 17.6 H, Hgb 11.4 L, Hct 34.4 L, Plt Count 245 03/22/18 18:05: Sodium 133 L, Potassium 3.6, BUN 20 H, Creatinine 1.30, Glucose 206 H, Magnesium 1.9, Total Bilirubin 0.6, AST 22, ALT 16, Alkaline Phosphatase 128 H, Lipase 52 L Microbiology Data (last 24 hrs): 03/22/18 17:55 Blood - Blood Anaerobic Blood Culture - Final 03/22/18 18:05 Blood - Blood Anaerobic Blood Culture - Final 03/22/18 18:41 Nasopharnyx Influenza Type A Antigen Screen - Final 03/22/18 18:41 Nasopharnyx Influenza Type B Antigen Screen - Final Assessment And Plan - Plan (1) Hypoxemia Current Visit: Yes Status: Acute (2) SOB (shortness of breath) Current Visit: Yes Status: Acute (3) Leukocytosis Current Visit: Yes Status: Acute (4) Hyponatremia Current Visit: Yes Status: Acute (5) Urinary tract infection Current Visit: Yes Status: Acute - Plan 1. Continue with IV antibiotics 2. Awaiting sputum and blood culture 3. Continue with nebs and IV steroids; patient will need pulmonary follow-up 4. O2 per protocol; if patient oxygenation is not improving then will recommend changing to inpatient 5. Continue with gentle hydration 6. Repeat labs including CBC and electrolytes, renal function in a.m. 7. GI and DVT prophylaxis
[2018-03-23] MEDS ORDERED: Levofloxacin500mg IV 500 MG/100 ML BAG IV ONE (18:00)
[2018-03-23] MEDS: CLOPIDOGREL 75 MG TABLET PO SCH (20:30)
[2018-03-23] MEDS ORDERED: METOPROLOL TAR 25 MG TAB PO SCH (21:00)
[2018-03-23] MEDS: ALPRAZOLAM 0.5 MG TABLET PO PRN (23:22)
[2018-03-24] MEDS: METOPROLOL TAR 25 MG TAB PO SCH ×2 (05:28→16:55)
[2018-03-24] MEDS: BENZONATATE 100 MG CAP PO PRN (05:32)
[2018-03-24] MEDS: NA CHLORIDE 0.9% 1,000 ML IV SCH (05:32)
[2018-03-24 07:33] LABS: Absolute Lymphocytes (CBC) 2.1 K/uL (0.7-4.9); Absolute Monocytes 1.6 K/uL (0.1-1.3); Absolute Neutrophil 13.6 K/uL (1.8-8.0); Basophils % 0.2 % (0-1.3); Eosinophils % 0.3 % (0-4.4); Hematocrit 30.9 % (36.0-45.0); MPV 8.5 fL (7.6-11.3); RBC Red Blood Cell Count 3.48 M/uL (3.86-4.86)
[2018-03-24 07:37] LABS: Potassium 4.7 mmol/L (3.5-5.1)
--- NOTE | 2018-03-24 07:43 | EKG ---
Test Date: 2018-03-23 Test Time: 20:16:16 Cnc Lathe Machinist: CLEANING LABORER MEASUREMENT RESULTS: Intervals: Rate: 98 ID: QRSD: 120 QT: 314 QTc: 400 [place]: P: ID: QRS: -14 T: -7 INTERPRETIVE STATEMENTS: Atrial fibrillation Right bundle branch block Abnormal ECG Compared to ECG 03/22/2018 19:04:15 No significant changes Electronically Signed On 03-24-18 07:43:17 ANIMAL WARDEN by Lex Ag
[2018-03-24 07:56] LABS: Blood Morphology Comment NOT SEEN (NOT SEEN); Platelet Estimate ADEQ; Urine White Blood Cell Casts OK
[2018-03-24] MEDS ORDERED: CLOPIDOGREL 75 MG TABLET PO SCH (09:00)
[2018-03-24] MEDS: CLOPIDOGREL 75 MG TABLET PO SCH ×2 (09:00→21:02)
[2018-03-24] MEDS: AMLODIPINE 10 MG TAB PO SCH (09:05)
[2018-03-24] MEDS: ASPIRIN EC 81 MG TAB PO SCH (09:05)
--- NOTE | 2018-03-24 15:46 | P.PN ---
Subjective Date of Service: 03/24/18 Chief Complaint: Shortness of breath Subjective: No new changes, No C/O voiced, Improving Patient seen and examined at bedside. No family at bedside. Chart reviewed and case discussed with nursing staff. De satting off of oxygen Review of Systems As noted Physical Examination - Vital Signs Temperature: 99.3 F Blood Pressure: 124/50 Pulse: 89 Respirations: 24 Pulse Ox (%): 91 - Physical Exam General: Alert, In no apparent distress, Oriented x3 HEENT: Atraumatic, PERRLA, EOMI Neck: Supple, JVD not distended Respiratory: Normal air movement, Expiratory wheezes Cardiovascular: Regular rate/rhythm, Normal S1 S2 Gastrointestinal: Normal bowel sounds, No tenderness Musculoskeletal: No tenderness Integumentary: No rashes Neurological: Normal speech, Normal tone, Normal affect Lymphatics: No axilla or inguinal lymphadenopathy - Studies Microbiology Data (last 24 hrs): 03/22/18 18:05 Blood - Blood Anaerobic Blood Culture - Final 03/22/18 17:55 Blood - Blood Anaerobic Blood Culture - Final Assessment And Plan - Plan This is an 88-year-old female with: Shortness of breath. Likely secondary to the pneumonia Continue oxygen per protocol Continue IV antibiotics Pending blood cultures Continue with nebulizers Pulmonology consulted Leukocytosis Likely secondary to the pneumonia Continue to monitor Continue IV antibiotics Pneumonia Clinically patient with leukocytosis, cough, intermittent low-grade fever. Chest x-ray with dense interstitial disease, possibility of underlying early infiltrate. Will repeat chest x-ray tomorrow History of AFib Per patient, she does not take a full 75 mg Plavix because she saw on T. v. that there are bad side-effects and she does not want to do that. She is currently taking 1/2 of a 75 mg tablet daily. Intermittently going in and out of atrial fibrillation. Discussed benefit of increasing Plavix 75 mg daily the patient does not want that. Will continue with her home regimen at this time. Continue metoprolol 25 mg b.i.d. Mitral valve replacement, porcine Echo pending DVT prophylaxis: Lovenox GI prophylaxis: None Diet: Heart healthy Code status: Per patient, she would like to be a do not resuscitate. Out of hospital paperwork for DNR filled out, code status changed to DNR. Disposition: Pending symptomatic improvement. Physician Review: Patient Assessed, Agree with Above Assessment and Plan Time Spent Managing PTS Care (In Minutes): 35
[2018-03-24] MEDS: levoFLOXacin 250 MG TAB PO SCH (16:55)
[2018-03-24] MEDS ORDERED: Levofloxacin 250mg IV 250 MG/50 ML BAG IV SCH (18:00)
[2018-03-24] MEDS: ALPRAZOLAM 0.5 MG TABLET PO PRN (21:04)
[2018-03-25] MEDS: LEVALBUTEROL 0.63 MG/3 ML NEB NEB PRN ×3 (03:46→15:40)
[2018-03-25] MEDS: METOPROLOL TAR 25 MG TAB PO SCH ×2 (06:38→17:21)
[2018-03-25 07:13] LABS: Absolute Lymphocytes (CBC) 1.9 K/uL (0.7-4.9); Absolute Monocytes 1.8 K/uL (0.1-1.3); Absolute Neutrophil 13.6 K/uL (1.8-8.0); Basophils % 0.5 % (0-1.3); Eosinophils % 0.7 % (0-4.4); Hematocrit 30.3 % (36.0-45.0); Lymphocytes % 10.8 % (15.3-44.8); MPV 8.4 fL (7.6-11.3); Monocytes % 10.2 % (3.3-12.3); RBC Red Blood Cell Count 3.41 M/uL (3.86-4.86)
[2018-03-25 07:22] LABS: Potassium 4.9 mmol/L (3.5-5.1)
[2018-03-25] MEDS ORDERED: FUROSEMIDE 20 MG TABLET PO ONE (08:19)
--- NOTE | 2018-03-25 08:20 | P.CNS ---
Date of Consult: 03/26/18 Chief Complaint: Shortness of breath and weakness History of Present Illness: Patient is 88 years of age no prior history of followup pulmonary complaints pending has some chronic shortness of breath admitted with feeling weak she has been hospitalized since Thursday patient thought that she had a flu which she has been vaccinated or viruses and pneumonia has some swelling of her ankles poor seen heart wall replaced on a 2012 in addition she has chronic intermittent diarrhea the no change in her condition since admission denies any fever or chills patient is not on any diuretics at home Allergies acetaminophen [From Tylenol] Allergy (Unknown, Verified 03/23/18 00:10) Nausea/Vomiting cefuroxime Allergy (Unknown, Verified 03/23/18 00:10) Itching codeine [Codeine] Allergy (Unknown, Verified 03/23/18 00:10) Anaphylaxis Penicillins Allergy (Unknown, Verified 03/23/18 00:10) Anaphylaxis procaine HCl [From Novocain] Allergy (Unknown, Verified 03/23/18 00:10) Itching cephalexin [From Keflex] Allergy (Verified 03/23/18 00:10) Anaphylaxis "steroids" Allergy (Uncoded 09/27/17 22:47) Anaphylaxis Opioids - Morphine Allergy (Uncoded 09/27/17 22:47) Anaphylaxis Home Medications: ALPRAZolam [Xanax] 0.5 mg PO BEDTIME PRN 03/23/18 Amlodipine Besylate 10 mg PO DAILY 03/23/18 Aspirin [Low Dose Aspirin EC] 81 mg PO DAILY 03/23/18 Clopidogrel Bisulfate [Plavix] 75 mg PO DAILY 03/23/18 Loperamide HCl [Anti-Diarrheal] 2 tab PO DAILY PRN 03/23/18 Metoprolol Tartrate [Lopressor] 25 mg PO BID 03/23/18 - Past Medical/Surgical History Diabetic: No -: Anxiety -: Hypertension -: Breast Cancer -: CVA -: TIA -: Mitral Valve replacement -: Left Mastectomy -: Appendectomy -: hysterectomy - Family History Father Medical History: Stroke - Social History Smoking Status: Unknown if ever smoked Alcohol use: No CD- Drugs: No Caffeine use: Yes Place of Residence: Home Review of Systems 10-point ROS is otherwise unremarkable General: Weakness Respiratory: Shortness of Breath Physical Examination Temp Pulse Resp BP Pulse Ox 97.1 F 126 H 20 128/74 93 03/25/18 04:00 03/25/18 06:38 03/25/18 04:00 03/25/18 06:38 03/25/18 04:00 General: Alert, Oriented x3 HEENT: Atraumatic Neck: Supple Respiratory: Crackles/rales (Bilateral crackles) Cardiovascular: No edema, Normal S1 S2 - Problems (1) SOB (shortness of breath) Current Visit: Yes Status: Acute Plan: Patient is 88 years of age admitted with weakness she has chronic shortness of breath presumed diastolic dysfunction mind adding a diuretic consider spironolactone there is no evidence of infection Dc antibiotics chest x-ray shows some chronic interstitial lung disease all the patient is never smoked patient's white count is elevated cultures negative patient is on levofloxacin patient's BNP is significantly elevated over 5000
[2018-03-25 08:23] LABS: Blood Morphology Comment NOT SEEN (NOT SEEN); Platelet Estimate ADEQ
[2018-03-25] MEDS: CLOPIDOGREL 75 MG TABLET PO SCH ×3 (09:00→21:34)
[2018-03-25] MEDS: ASPIRIN EC 81 MG TAB PO SCH (10:52)
[2018-03-25] MEDS: SPIRONOLACTONE 25 MG TABLET PO SCH ×2 (10:52→21:34)
[2018-03-25] MEDS: AMLODIPINE 10 MG TAB PO SCH (10:52)
[2018-03-25] MEDS: levoFLOXacin 250 MG TAB PO SCH (10:53)
--- NOTE | 2018-03-25 13:43 | ECHO ---
HEIGHT: 5 ft 5 in WEIGHT: 123 lb 0 oz DATE OF STUDY: 03/25/[address]: Santiago Holguin MD 2-DIMENSIONAL: YES M.MODE: YES DOPPLER: YES COLOR FLOW: YES TDS: NO PORTABLE: NO DEFINITY: NO BUBBLE STUDY: NO DIAGNOSIS: SHORTNESS OF BREATH, MITRAL VALVE REPLACEMENT CARDIAC HISTORY: CATHERIZATION: NO SURGERY: YES PROSTHETIC VALVE: YES PACEMAKER: NO MEASUREMENTS (cm) DIASTOLIC (NORMALS) SYSTOLIC (NORMALS) IVSd 1.3 (0.6-1.2) LA Diam 3.4 (1.9-4.0) LVEF 57% LVIDd 3.1 (3.5-5.7) LVIDs 2.2 (2.0-3.5) %FS 29% LVPWd 1.2 (0.6-1.2) Ao Diam 2.5 (2.0-3.7) 2 DIMENSIONAL ASSESSMENT: RIGHT ATRIUM: NORMAL LEFT ATRIUM: NORMAL RIGHT VENTRICLE: NORMAL LEFT VENTRICLE: NORMAL TRICUSPID VALVE: NORMAL MITRAL VALVE: NORMAL FUNCTION OF BIORPOSTHETIC PULMONIC VALVE: NORMAL AORTIC VALVE: NORMAL PERICARDIAL EFFUSION: NONE AORTIC ROOT: NORMAL LEFT VENTRICULAR WALL MOTION: NORMAL DOPPLER/COLOR FLOW: MILD TRICUSPID REGURGITATION. COMMENTS: MILD TRICUSPID REGURGITATION. NORMAL FUNCTION OF BIOPROSTHETIC VALVE-MITRAL. NORMAL LV SIZE AND FUNCTION. NO WALL MOTION ABNORMALITY. NO EFFUSION. TECHNOLOGIST: TRINY EDDY RDCS
--- NOTE | 2018-03-25 16:04 | P.PN ---
Subjective Date of Service: 03/25/18 Chief Complaint: Shortness of breath and weakness Subjective: No new changes, No C/O voiced Patient seen and examined at bedside. No family at bedside. Chart reviewed and case discussed with nursing staff. De satting off of oxygen Review of Systems As noted Physical Examination - Vital Signs Temperature: 97.5 F Blood Pressure: 141/66 Pulse: 123 Respirations: 18 Pulse Ox (%): 93 - Physical Exam General: Alert, In no apparent distress, Oriented x3 HEENT: Atraumatic, PERRLA, EOMI Neck: Supple, JVD not distended Respiratory: Expiratory wheezes Cardiovascular: Regular rate/rhythm, Normal S1 S2 Gastrointestinal: Normal bowel sounds, No tenderness Musculoskeletal: No tenderness Integumentary: No rashes Neurological: Normal speech, Normal tone, Normal affect Assessment And Plan - Plan This is an 88-year-old female with: Shortness of breath. Continue oxygen per protocol Pending blood cultures, NGTD Continue with nebulizers Pulmonology consulted, Recommendations appreciated Sprinolactone added Leukocytosis Resolved Continue to monitor Continue IV antibiotics Pneumonia Clinically patient with leukocytosis, cough, intermittent low-grade fever. Chest x-ray with dense interstitial disease, possibility of underlying early infiltrate. Will repeat chest x-ray tomorrow History of AFib Per patient, she does not take a full 75 mg Plavix because she saw on T. v. that there are bad side-effects and she does not want to do that. She is currently taking 1/2 of a 75 mg tablet daily. Intermittently going in and out of atrial fibrillation. Discussed benefit of increasing Plavix 75 mg daily the patient does not want that. Will continue with her home regimen at this time. Continue metoprolol 25 mg b.i.d. Mitral valve replacement, porcine Echo WNL DVT prophylaxis: Lovenox GI prophylaxis: None Diet: Heart healthy Code status: Per patient, she would like to be a do not resuscitate. Out of hospital paperwork for DNR filled out, code status changed to DNR. Disposition: Pending symptomatic improvement. Physician Review: Patient Assessed, Agree with Above Assessment and Plan
[2018-03-25] MEDS: ALPRAZOLAM 0.5 MG TABLET PO PRN (21:36)
[2018-03-26] MEDS: METOPROLOL TAR 25 MG TAB PO SCH (05:17)
[2018-03-26 07:37] VITALS: BP 163/77; TEMP 98.4
--- NOTE | 2018-03-26 08:17 | P.PN ---
Subjective Date of Service: 03/26/18 Chief Complaint: Shortness of breath and weakness Subjective: Improving (Patient is doing much better shortness of breath is improved he has problems with taking Plavix) Review of Systems Respiratory: Dry, Shortness of Breath Physical Examination - Vital Signs Temperature: 98.4 F Blood Pressure: 163/77 Pulse: 90 Respirations: 16 Pulse Ox (%): 93 - Physical Exam General: Alert, Oriented x3 Neck: Supple Respiratory: Clear to auscultation bilaterally Cardiovascular: No edema Assessment & Plan - Problems (Diagnosis) (1) SOB (shortness of breath) Current Visit: Yes Status: Acute Plan: Patient states that she has improved significantly continue with spironolactone 25 mg a day and 20 mg of Lasix most likely she has underlying diastolic dysfunction normal left ventricular function white count was elevated repeat CBC room-air saturation satisfactory can discharge home patient is complaining of problem with the Plavix hospitalist to discuss with cardiology cultures negative Physician Review: Patient Assessed, Agree with Above Assessment and Plan
[2018-03-26] MEDS: AMLODIPINE 10 MG TAB PO SCH (08:33)
[2018-03-26] MEDS: SPIRONOLACTONE 25 MG TABLET PO SCH (08:34)
[2018-03-26] MEDS: levoFLOXacin 250 MG TAB PO SCH (08:34)
[2018-03-26] MEDS: ASPIRIN EC 81 MG TAB PO SCH (08:34)
[2018-03-26] MEDS: CLOPIDOGREL 75 MG TABLET PO SCH (08:40)
[2018-03-26 09:52] LABS: Hematocrit 32.7 % (36.0-45.0); MPV 8.3 fL (7.6-11.3); RBC Red Blood Cell Count 3.67 M/uL (3.86-4.86)
[2018-03-26 12:13] VITALS: O2SAT 92
--- NOTE | 2018-03-26 13:02 | P.SSS ---
Patient History Date of Service: 03/26/18 Reason for admission: Shortness of breath and weakness History of Present Illness: Patient is an 88-year-old female came to the hospital with shortness of breath. Patient been coughing and congested and she was having difficulty breathing. Her symptoms got progressively worse over the last 3 days. She came into the ER for further evaluation. In the ER her workup revealed extensive chronic lung disease. She has a history of pulmonary fibrosis which appears to have been exacerbated. In the ER she was still very short of breath. Patient was also hypoxic and she has generalized weakness. She will need evaluation over the next 24-48 hrs. If she does not improve and she remains slightly hypoxic may need to consider inpatient stay. Allergies acetaminophen [From Tylenol] Allergy (Unknown, Verified 03/23/18 00:10) Nausea/Vomiting cefuroxime Allergy (Unknown, Verified 03/23/18 00:10) Itching codeine [Codeine] Allergy (Unknown, Verified 03/23/18 00:10) Anaphylaxis Penicillins Allergy (Unknown, Verified 03/23/18 00:10) Anaphylaxis procaine HCl [From Novocain] Allergy (Unknown, Verified 03/23/18 00:10) Itching cephalexin [From Keflex] Allergy (Verified 03/23/18 00:10) Anaphylaxis "steroids" Allergy (Uncoded 09/27/17 22:47) Anaphylaxis Opioids - Morphine Allergy (Uncoded 09/27/17 22:47) Anaphylaxis Home Medications: ALPRAZolam [Xanax*] 0.5 mg PO BEDTIME PRN 03/23/18 Amlodipine Besylate 10 mg PO DAILY 03/23/18 Aspirin [Low Dose Aspirin EC] 81 mg PO DAILY 03/23/18 Clopidogrel Bisulfate [Plavix*] 0.5 tab PO BEDTIME 03/23/18 Loperamide HCl [Anti-Diarrheal] 2 tab PO DAILY PRN 03/23/18 Metoprolol Tartrate [Lopressor*] 25 mg PO BID 03/23/18 Spironolactone [Aldactone*] 25 mg PO BID #60 tab 03/26/18 - Past Medical/Surgical History Has patient received pneumonia vaccine in the past: Yes Diabetic: No -: Anxiety -: Hypertension -: Breast Cancer -: CVA -: TIA -: Mitral Valve replacement -: Left Mastectomy -: Appendectomy -: hysterectomy - Family History Father -: Stroke - Social History Smoking Status: Never smoker Alcohol use: No CD- Drugs: No Caffeine use: Yes Place of Residence: Home Review of Systems As noted Physical Examination - Vital Signs Temperature: 98.4 F Blood Pressure: 163/77 Pulse: 90 Respirations: 16 Pulse Ox (%): 93 - Physical Exam General: Alert, In no apparent distress, Oriented x3 HEENT: Atraumatic, PERRLA, Mucous membr. moist/pink, EOMI, Sclerae nonicteric Neck: Supple, 2+ carotid pulse no bruit, No LAD, Without JVD or thyroid abnormality Respiratory: Normal air movement, Expiratory wheezes, Inspiratory wheezes Cardiovascular: Regular rate/rhythm, Normal S1 S2 Gastrointestinal: Normal bowel sounds, No tenderness Musculoskeletal: No tenderness Integumentary: No rashes Neurological: Normal gait, Normal speech, Normal strength at 5/5 x4 extr, Normal tone, Normal affect Lymphatics: No axilla or inguinal lymphadenopathy Treatment Summary: Shortness of breath. Patient was admitted for shortness of breath. She was started on oxygen per protocol, started on nebulizer treatments. Pulmonary was consulted. Spironolactone was added to patient's regimen. She was also given steroids, which are dosage was decreased prior to discharge. Blood cultures were negative. Her symptoms improved with these interventions. She was discharged home with home health for further rehab/physical therapy. Pneumonia Upon admission, patient's chest x-ray with this interstitial disease, possibility of an underlying early infiltrate. She was given IV Levaquin, discontinued prior to discharge. Known need for antibiotics after discharge. History of AFib Per patient, she does not take a full 75 mg Plavix because she saw on T. v. that there are bad side-effects and she does not want to do that. She is currently taking 1/2 of a 75 mg tablet daily. Intermittently going in and out of atrial fibrillation. Discussed benefit of increasing Plavix 75 mg daily the patient does not want that. She was continued on her home regimen. Though at the time of discharge for patient stated that she did not want to take any more Plavix as she does not like it. Discussed the risks of stopping Plavix at this time due to her were replaced mitral valve. The patient stated that she understood the risks but she will discuss with police department secretary after discharge. She did not want to restart taking her Plavix at this time. Mitral valve replacement, porcine Echo WNL During this hospitalization, [id number] before was filled out for DNR, per patient's wishes. - Disposition Disposition: ROUTINE DISCHARGE Condition: GOOD Consultations: Pulmonary, Dr. Vasquez Patient Discharge Instructions: Please follow up with your primary care physician in 1 week. Please follow up with your police department secretary, Dr. Villagran in 2 weeks. Please follow up with pulmonary in 2 weeks - information provided. Diet: AHA Activity: Ad cyn Physician Review: Patient Assessed, Agree with Above Assessment and Plan Time Spent Managing Pts Care (In Minutes): 55
== END 2018-03-26 13:39 | disposition home health service (06) ==
LOC: ER 17:28 → INTOOBSV 18:44 → ERHOLD 18:44 → 2ND 19:41
PROVIDERS: ADMIT Family Medicine; ATTEND Hospitalist
DX: J18.9 Pneumonia, unspecified organism (principal); N39.0 Urinary tract infection, site not specified; E87.1 Hypo-osmolality and hyponatremia; R09.02 Hypoxemia; J84.10 Pulmonary fibrosis, unspecified; I48.91 Unspecified atrial fibrillation; I10 Essential (primary) hypertension; Z79.82 Long term (current) use of aspirin; Z95.2 Presence of prosthetic heart valve; Z86.73 Personal history of transient ischemic attack (TIA), and cerebral infarction without residual deficits; Z85.3 Personal history of malignant neoplasm of breast; Z66 Do not resuscitate; Z88.0 Allergy status to penicillin
CPT/HCPCS: 36415 ×4; 71045; 80048 ×4; 80076; 83605; 83690; 83735; 83880; 84484; 85025 ×4; 85027; 85610; 87040 ×4; 87086; 87088; 87804 ×2; 93005 ×2; 93306; 96365; 97116; 97162; 97530; 99285; G0378 ×2; J7030 ×5; 81003; 81015

== ENCOUNTER 2018-05-13 10:23 | Inpatient (IN) | payer OTHER ==
--- OUTSIDE RECORDS SUMMARY | 2018-05-13 10:27 | XMS REPORT | Clinical Summary ---
:1930 Author Organization [facility] Address [address] [place] [address] Care Team Providers Name Role Phone Awa [...] 81 MG enteric mouth daily. coated tablet nitrofurantoin, 0 11/05/2017 Active macrocrystal-monoh ydrate, (MACROBID) [...] cerebral day. ischemia, unspecified type, S/P AVR ticagrelor Take 1 tablet 180 tablet 0 04/07/2018 Active (BRILINTA) 90 mg (90 mg total) tablet by mouth 2 (two) times a day. amLODIPine Take 1 tablet 90 tablet 3 11/04/2016 12/08/2017 Discontinued (NORVASC) 10 mg (10 mg total) tablet by mouth daily. metoprolol Take 1 tablet 180 tablet 3 11/04/2016 11/09/2017 Discontinued tartrate (25 mg total) (LOPRESSOR) 25 mg by mouth 2 tablet (two) times a day. clopidogrel Take 1 tablet 90 tablet 3 10/02/2017 04/07/2018 Discontinued (PLAVIX) 75 mg (75 mg total) tabletIndications: by mouth Aortic valve daily. disorder, Transient cerebral ischemia, unspecified type metoprolol TAKE ONE 180 tablet 2 11/09/2017 12/08/2017 Discontinued tartrate TABLET BY (LOPRESSOR) 25 mg MOUTH TWICE A tablet DAY Active Problems Problem Noted Date TIA (transient ischemic attack) 10/03/2017 Essential hypertension 10/03/2017 AVD (aortic valve disease) 11/04/2016 S/P AVR 05/01/2016 Encounters Date Type Specialty Care Team Description 04/07/2018 Telephone Cardiology Vivek Pimentel MA Medication Reaction 04/07/2018 Orders Only Cardiology Vivek Pimentel MA 12/08/2017 Office Visit Cardiology Tim Villagran MD [...] Villagran MD S/P AVR (Primary Dx) after 05/12/2017 Family History Medical History Relation Name Comments [...] 05/25/2018 Office Visit Cardiology Tim Villagran MD [address] [address] Health Maintenance Due Date Last Done Comments SHINGLES VACCINES (1 of 2) 1979 PNEUMOCOCCAL POLYSACCHARIDE VACCINE AGE 65 AND OVER 1994 PNEUMOCOCCAL-13 1994 INFLUENZA VACCINE 11/04/2017 Procedures Procedure Name Priority Date/Time Associated Diagnosis Comments OBTAIN MEDICAL Routine 10/27/2017 RECORDS ECG 12-LEAD Routine 10/02/2017 9:10 Essential Results for this AM CDT hypertension procedure are in the results section. after 05/12/2017 Results Obtain medical records (10/27/2017) Narrative Performed At ECG 12 lead (10/02/2017 9:10 AM CDT) Ventricular rate 64 [facility] Atrial rate 64 [facility] OK interval 206 [facility] QRSD interval 118 [...] wave inversion no longer evident in Inferior [facility] leads-T wave inversion no longer evident in Anterolateral leads- Performing Organization Address City/State/Zipcode Phone Number [facility] [address] [place] [address] after 05/12/2017 Insurance Payer Benefit Plan / Group Subscriber ID Type Phone Address [facility] xxxxxxxxx HMO Advance Directives Patient has advance care planning documents on file. For more information, please contact:Erast[address] [place] [address]
--- NOTE | 2018-05-13 10:56 | RAD REPORT ---
EXAM DESCRIPTION: RAD - Chest Single View - 05/13/2018 10:50 am CLINICAL HISTORY: SOB Chest pain. COMPARISON: Chest Single View dated 03/22/2018; Chest Single View dated 09/27/2017; Chest Single View dated 03/30/2017; CHEST SINGLE VIEW dated 05/02/2012 FINDINGS: Portable technique limits examination quality. Fibroemphysematous changes are present throughout the lungs, similar to comparative studies. No focal infiltrate suspected. The heart is normal in size. No displaced fractures. IMPRESSION: No acute intrathoracic process suspected. Chronic fibroemphysematous changes.
[2018-05-13] MEDS ORDERED: LEVALBUTEROL 1.25 MG/3 ML NEB ONE (11:27)
--- NOTE | 2018-05-13 11:51 | EKG ---
Test Date: 2018-05-13 Test Time: 10:52:07 Engineer Conductor: ROXIE MEASUREMENT RESULTS: Intervals: Rate: 89 AR: 194 QRSD: 116 QT: 374 QTc: 455 [place]: P: 81 AR: 194 QRS: 92 T: 58 INTERPRETIVE STATEMENTS: Sinus rhythm with premature supraventricular complexes Right bundle branch block Abnormal ECG Compared to ECG 03/23/2018 20:16:16 Atrial premature complex(es) now present Atrial fibrillation no longer present Electronically Signed On 05-13-18 11:51:18 [employer]ATIONS [employer]NER by Lex Ag
[2018-05-13 13:52] LABS: Absolute Lymphocytes (CBC) 1.4 K/uL (0.7-4.9); Absolute Monocytes 1.3 K/uL (0.1-1.3); Absolute Neutrophil 11.9 K/uL (1.8-8.0); Basophils % 0.3 % (0-1.3); Eosinophils % 0.2 % (0-4.4); Hematocrit 23.7 % (36.0-45.0); Lymphocytes % 9.5 % (15.3-44.8); Monocytes % 8.8 % (3.3-12.3); RBC Red Blood Cell Count 2.75 M/uL (3.86-4.86)
[2018-05-13 13:58] LABS: Protime INR 1.18
[2018-05-13] MEDS ORDERED: Levofloxacin500mg IV 500 MG/100 ML BAG IV ONE (14:01)
[2018-05-13 14:07] LABS: ALT/SGPT 18 U/L (12-78); AST/SGOT 29 U/L (15-37); Albumin 2.2 g/dL (3.4-5.0); Alkaline Phosphatase 138 U/L (45-117); BUN Blood Urea Nitrogen 21 mg/dL (7-18); Bicarbonate 24 mmol/L (21-32); Bilirubin Direct 0.1 mg/dL (0-0.2); Bilirubin Total 0.3 mg/dL (0.2-1.0); Glucose Level 144 mg/dL (74-106); Magnesium 1.9 mg/dL (1.8-2.4); NT PRO-BNP 2708 pg/mL (<450); Sodium Level 135 mmol/L (136-145); Troponin (Emerg Dept Use Only) < 0.02 ng/mL (0.0-0.045)
--- NOTE | 2018-05-13 14:54 | RAD REPORT ---
EXAM DESCRIPTION: CT - Thorax Wo Con - 05/13/2018 2:42 pm CLINICAL HISTORY: Persistent shortness of breath COMPARISON: Chest films same date, CT study April 2012 TECHNIQUE: Axial 5 mm thick images of the chest were obtained without IV contrast. All CT scans are performed using dose optimization technique as appropriate and may include automated exposure control or mA/KV adjustment according to patient size. FINDINGS: Patient has extensive chronic interstitial lung disease evident. In both upper lobes are s cattered areas of interstitial and alveolar opacification without masslike density. This is most like ly pneumonia. Interstitial and alveolar opacification in the medial lower left lung field noted with a small left pleural effusion. There is atelectasis in the posterior left gutter. Minimal right pleur al fluid is present. There is a 3 centimeter pleural abutting density in the posterior mid right lung field with a 4 millimeter area of consolidated parenchyma in the anterior right lung base. Air bronc hograms are present within this mass. No endobronchial lesions seen. No pneumothorax. No abnormal mediastinal or hilar masses or lymphadenopathy seen. No gross aortic or pulmonary artery finding suspected. Assessment is limited in the absence of IV contrast. No pericardial effusion. No chest wall mass or abnormal axillary lymphadenopathy. IMPRESSION: Lung parenchymal consolidation anterior right lung base and posterior mid right lung fie ld as well as scattered interstitial and alveolar opacities throughout all lung cruz. Consolidated densities in the right lung field are most likely pneumonia as are the scattered interst itial and alveolar opacities. Small left pleural effusion. Malignancy cannot be excluded for the right lung field densities. Follow-up is needed following medic al management with reimaging CT chest in approximately 6 weeks.
--- NOTE | 2018-05-13 15:52 | EDPHYS ---
Physician Documentation [facility] Name: Mirtha Valentin Age: 88 yrs Sex: Female : 1930 Arrival Date: 05/13/2018 Time: 10:24 Bed 5 Private MD: Brijesh Bush R ED Physician Joshua Ochoa HPI: 05/13 10:47 This 88 yrs old Female presents to ER via Ambulatory with complaints of wa Shortness Of Breath. 10:47 The patient has shortness of breath at rest, cough x 6 days. now with associated SOB. wa Onset: The symptoms/episode began/occurred 6 day(s) ago. Duration: The symptoms are continuous, and are steadily getting worse. The patient's shortness of breath is aggravated by coughing, exertion, is alleviated by nothing. Associated signs and symptoms: Pertinent positives: non-productive cough, Pertinent negatives: chest pain, dizziness, fever, hemoptysis, vomiting. Severity of symptoms: At their worst the symptoms were moderate in the emergency department the symptoms are worse. The patient has experienced similar episodes in the past, a few times. The patient has not recently seen a physician. had a pna a month ago. Historical: - Allergies: 12:21 "steroids"; aj1 12:21 codine; aj1 12:21 Keflex; aj1 12:21 Opioids - Morphine Analogues; aj1 12:21 PENICILLINS; aj1 - Home Meds: 12:21 amlodipine 10 mg tab once daily [Active]; aspirin 81 mg Oral chew 1 tab once daily aj1 [Active]; metoprolol tartrate 25 mg Oral tab 1 tab once daily [Active]; - PMHx: 12:21 Anxiety; CVA; Hypertension; TIA; aj1 - Immunization history:: Adult Immunizations up to date. - Social history:: Patient/guardian denies using alcohol, tobacco products, Smoking status: Patient/guardian denies using tobacco. - Family history:: not pertinent. - Ebola Screening: : Patient denies travel to an Ebola-affected area in the 21 days before illness onset. - Hospitalizations: : No recent hospitalization is reported. ROS: 10:49 Constitutional: Negative for fever, chills, and weight loss, Eyes: Negative for injury, wa pain, redness, and discharge, ENT: Negative for injury, pain, and discharge, Neck: Negative for injury, pain, and swelling, Cardiovascular: Negative for chest pain, palpitations, and edema, Abdomen/GI: Negative for abdominal pain, nausea, vomiting, diarrhea, and constipation, Back: Negative for injury and pain, : Negative for injury, bleeding, discharge, and swelling, MS/Extremity: Negative for injury and deformity, Skin: Negative for injury, rash, and discoloration, Neuro: Negative for headache, weakness, numbness, tingling, and seizure, Psych: Negative for depression, anxiety, suicide ideation, homicidal ideation, and hallucinations. 10:49 Respiratory: Positive for shortness of breath, at rest. Negative for hemoptysis. 10:49 All other systems are negative. Exam: 10:50 Constitutional: This is a well developed, well nourished patient who is awake, alert, wa and in no acute distress. Head/Face: Normocephalic, atraumatic. Eyes: Pupils equal round and reactive to light, extra-ocular motions intact. Lids and lashes normal. Conjunctiva and sclera are non-icteric and not injected. Cornea within normal limits. Periorbital areas with no swelling, redness, or edema. ENT: Nares patent. No nasal discharge, no septal abnormalities noted. Tympanic membranes are normal and external auditory canals are clear. Oropharynx with no redness, swelling, or masses, exudates, or evidence of obstruction, uvula midline. Mucous membranes moist. Neck: Trachea midline, no thyromegaly or masses palpated, and no cervical lymphadenopathy. Supple, full range of motion without nuchal rigidity, or vertebral point tenderness. No Meningismus. Chest/axilla: Normal chest wall appearance and motion. Nontender with no deformity. No lesions are appreciated. Back: No spinal tenderness. No costovertebral tenderness. Full range of motion. Skin: Warm, dry with normal turgor. Normal color with no rashes, no lesions, and no evidence of cellulitis. MS/ Extremity: Pulses equal, no cyanosis. Neurovascular intact. Full, normal range of motion. Neuro: Awake and alert, GCS 15, oriented to person, place, time, and situation. Cranial nerves II-XII grossly intact. Motor strength 5/5 in all extremities. Sensory grossly intact. Cerebellar exam normal. Normal gait. Psych: Awake, alert, with orientation to person, place and time. Behavior, mood, and affect are within normal limits. 10:50 Cardiovascular: Rate: normal, Rhythm: regular, Pulses: no pulse deficits are appreciated, Heart sounds: normal. 10:50 Respiratory: the patient does not display signs of respiratory distress, mild respiratory distress is noted, Respirations: normal, Breath sounds: wheezing: inspiratory that is moderate, is heard diffusely. Vital Signs: 10:31 Pulse 97; Resp 29; Pulse Ox 88% on R/A; hj 10:41 BP 157 / 80; Pulse 89; Resp 22; Pulse Ox 99% on NC; aj1 11:15 BP 152 / 57; Pulse 88; Resp 22; Pulse Ox 96% ; aj1 12:15 BP 140 / 63; Pulse 85; Resp 23; Pulse Ox 96% on NC; aj1 14:55 BP 124 / 61; Pulse 89; Resp 22; Pulse Ox 97% on NC; aj1 16:36 BP 119 / 54; Pulse 90; Resp 21; Pulse Ox 96% on R/A; aj1 17:15 BP 116 / 54; Pulse 59; Resp 20; Pulse Ox 99% on NC; aj1 MDM: 10:28 Patient medically screened. wa 10:51 Differential diagnosis: Bronchitis CHF exacerbation, Chronic Obstructive Pulmonary wa Disease Myocardial Infarction pneumonia, pulmonary edema, reactive airway disease, Unstable Angina. 15:40 Data reviewed: vital signs, nurses notes, lab test result(s), EKG, radiologic studies. az Test interpretation: by ED physician or midlevel provider: labs noted for elevated glucose at 144. BUN 21. elevated WBC at 14.7. anemia at 7.8/23.7. BNP 2708 Alk Phos 138. CXR: Chronic fibroemphesematous changes. CT chest: R side interstitial infiltrates consistent with pneumonia. 15:49 Test interpretation: by ED physician or midlevel provider: EKG: interpreted by me: HR wa 89. sinus. normal axis. RBBB. 05/13 10:35 Order name: Blood Culture Adult (2) 05/13 10:35 Order name: BMP; Complete Time: 15:34 05/13 10:35 Order name: CBC with Diff; Complete Time: 15:34 05/13 10:35 Order name: Hepatic Function; Complete Time: 15:34 05/13 10:35 Order name: Magnesium; Complete Time: 15:35 az 05/13 10:35 Order name: NT PRO-BNP; Complete Time: 15:35 az 05/13 10:35 Order name: XRAY CXR (1 view); Complete Time: 11:33 az 05/13 10:35 Order name: PT-INR; Complete Time: 15:35 az 05/13 10:35 Order name: Troponin (emerg Dept Use Only); Complete Time: 15:35 az 05/13 10:36 Order name: Urine Microscopic Only 05/13 10:36 Order name: Flu; Complete Time: 15:35 az 05/13 14:41 Order name: Thorax Wo Con; Complete Time: 15:33 EDWA 05/13 10:35 Order name: EKG; Complete Time: 10:37 az 05/13 10:35 Order name: Cardiac monitoring; Complete Time: 10:40 az 05/13 10:35 Order name: EKG - Nurse/Tech; Complete Time: 10:40 az 05/13 10:35 Order name: IV Saline Lock; Complete Time: 12:18 az 05/13 10:35 Order name: Labs collected and sent; Complete Time: 12:18 az 05/13 10:35 Order name: O2 Per Protocol; Complete Time: 10:40 az 05/13 10:35 Order name: O2 Sat Monitoring; Complete Time: 10:40 az Administered Medications: 11:28 Drug: Xopenex 1.25 mg Route: Inhalation; [facility] 17:27 Follow up: Response: No adverse reaction [facility] 13:59 Drug: LevaQUIN 500 mg Volume: 100 ml; Route: IVPB; Infused Over: 60 mins; Site: right [facility] forearm; 15:00 Follow up: IV Status: Completed infusion; IV Intake: 100ml [facility] Disposition: 05/13/18 15:51 Hospitalization ordered by Angel Li for Inpatient Admission. Preliminary diagnosis are Acute Dyspnea, Acute Right Side Interstitial Pneumonia. - Bed requested for Telemetry/MedSurg (Inpatient). - Status is Inpatient Admission. iw - Condition is Stable. - Problem is new. - Symptoms have improved. UTI on Admission? No Signatures: Dispatcher [employer] Gwen Thibodeaux RN RN aj Janie Mohan RN RN Joshua Ochoa MD MD az Mckeon, Gayatri eb Corrections: (The following items were deleted from the chart) 14:40 13:08 Chest For PE Angio+CT.RAD.BRZ ordered. EDMS EDMS 16:33 15:51 Hospitalization Ordered by Angel Li DO for Inpatient Admission. Preliminary eb diagnosis is Acute Dyspnea; Acute Right Side Interstitial Pneumonia. Bed requested for Telemetry/MedSurg (Inpatient). Status is Inpatient Admission. Condition is Stable. Problem is new. Symptoms have improved. UTI on Admission? No. wa 17:27 16:33 05/13/2018 15:51 Hospitalization Ordered by Angel Li DO for Inpatient iw Admission. Preliminary diagnosis is Acute Dyspnea; Acute Right Side Interstitial Pneumonia. Bed requested for Telemetry/MedSurg (Inpatient). Status is Inpatient Admission. Condition is Stable. Problem is new. Symptoms have improved. UTI on Admission? No. eb
--- NOTE | 2018-05-13 15:52 | ER ---
Nurse's Notes [facility] Name: Mirtha Valentin Age: 88 yrs Sex: Female : 1930 Arrival Date: 05/13/2018 Time: 10:24 Bed 5 Private MD: Brijesh Bush R Diagnosis: Acute Dyspnea;Acute Right Side Interstitial Pneumonia Presentation: 05/13 10:30 Presenting complaint: Patient states: on triage, 88% on RA; i have this cough for 2-3 hj days now and its hard to breathe; place on 2L O2, sats up to 94%;. Transition of care: patient was not received from another setting of care. Onset of symptoms was May 13, 2018. Risk Assessment: Do you want to hurt yourself or someone else? Patient reports no desire to harm self or others. Initial Sepsis Screen: Does the patient meet any 2 criteria? RR > 20 per min. HR > 90 bpm. Does the patient have a suspected source of infection? Yes:. Care prior to arrival: None. 10:30 Method Of Arrival: Ambulatory hj 10:30 Acuity: SERAFIN 2 hj Triage Assessment: 10:31 Respiratory: Reports shortness of breath labored breathing Onset: The symptoms/episode hj began/occurred 2-3 daysa go', the patient has severe shortness of breath. Historical: - Allergies: 12:21 "steroids"; aj1 12:21 codine; aj1 12:21 Keflex; aj1 12:21 Opioids - Morphine Analogues; aj1 12:21 PENICILLINS; aj1 - Home Meds: 12:21 amlodipine 10 mg tab once daily [Active]; aspirin 81 mg Oral chew 1 tab once daily aj1 [Active]; metoprolol tartrate 25 mg Oral tab 1 tab once daily [Active]; - PMHx: 12:21 Anxiety; CVA; Hypertension; TIA; aj1 - Immunization history:: Adult Immunizations up to date. - Social history:: Patient/guardian denies using alcohol, tobacco products, Smoking status: Patient/guardian denies using tobacco. - Family history:: not pertinent. - Ebola Screening: : Patient denies travel to an Ebola-affected area in the 21 days before illness onset. - Hospitalizations: : No recent hospitalization is reported. Screenin:30 Abuse screen: Denies threats or abuse. Denies injuries from another. Nutritional aj1 screening: No deficits noted. Tuberculosis screening: No symptoms or risk factors identified. 17:27 Fall Risk IV access (20 points). iw Assessment: 10:30 General: Appears in no apparent distress. uncomfortable, Behavior is calm, cooperative, aj1 appropriate for age. Pain: Denies pain. Neuro: Level of Consciousness is awake, alert, obeys commands, Oriented to person, place, time, situation, Speech is normal, Facial symmetry appears normal, Denies dizziness. Cardiovascular: Denies chest pain, Heart tones S1 S2 present Patient's skin is warm and dry. Rhythm is sinus rhythm. Respiratory: Reports shortness of breath cough that is non-productive, Airway is patent Respiratory effort is even, unlabored, Respiratory pattern is regular, symmetrical, Breath sounds with wheezes bilaterally. GI: No signs and/or symptoms were reported involving the gastrointestinal system. : No signs and/or symptoms were reported regarding the genitourinary system. EENT: No signs and/or symptoms were reported regarding the EENT system. Derm: No signs and/or symptoms reported regarding the dermatologic system. Skin is pink, warm \\T\\ dry. normal. Musculoskeletal: No signs and/or symptoms reported regarding the musculoskeletal system. Circulation, motion, and sensation intact. 11:30 Reassessment: Patient appears in no apparent distress at this time. No changes from aj1 previously documented assessment. Patient and/or family updated on plan of care and expected duration. Pain level reassessed. Patient is alert, oriented x 3, equal unlabored respirations, skin warm/dry/pink. 12:25 Reassessment: Patient appears in no apparent distress at this time. No changes from aj1 previously documented assessment. Patient and/or family updated on plan of care and expected duration. Pain level reassessed. Patient is alert, oriented x 3, equal unlabored respirations, skin warm/dry/pink. 13:30 Reassessment: Patient and/or family updated on plan of care and expected duration. Pain aj1 level reassessed. General: Appears in no apparent distress. comfortable, Behavior is calm, cooperative, appropriate for age. Pain: Denies pain. Neuro: Level of Consciousness is awake, alert, obeys commands. Cardiovascular: Patient's skin is warm and dry. Rhythm is sinus rhythm. Respiratory: Airway is patent Respiratory effort is even, unlabored, Respiratory pattern is regular, symmetrical. GI: No signs and/or symptoms were reported involving the gastrointestinal system. Derm: Skin is pink, warm \\T\\ dry. normal. Musculoskeletal: Circulation, motion, and sensation intact. 14:30 Reassessment: Patient appears in no apparent distress at this time. No changes from aj1 previously documented assessment. Patient and/or family updated on plan of care and expected duration. Pain level reassessed. Patient is alert, oriented x 3, equal unlabored respirations, skin warm/dry/pink. 15:30 Reassessment: Patient and/or family updated on plan of care and expected duration. Pain aj1 level reassessed. General: Appears in no apparent distress. comfortable, Behavior is calm, cooperative, appropriate for age. Neuro: Level of Consciousness is awake, alert, obeys commands, Oriented to person, place, time, situation. Cardiovascular: Patient's skin is warm and dry. Respiratory: Airway is patent Respiratory effort is even, unlabored, Respiratory pattern is regular, symmetrical. Derm: No signs and/or symptoms reported regarding the dermatologic system. Skin is pink, warm \\T\\ dry. normal. Musculoskeletal: No signs and/or symptoms reported regarding the musculoskeletal system. Circulation, motion, and sensation intact. 16:36 Reassessment: Patient appears in no apparent distress at this time. No changes from aj1 previously documented assessment. Patient and/or family updated on plan of care and expected duration. Pain level reassessed. Patient is alert, oriented x 3, equal unlabored respirations, skin warm/dry/pink. 17:15 Reassessment: Patient appears in no apparent distress at this time. No changes from aj1 previously documented assessment. Patient and/or family updated on plan of care and expected duration. Pain level reassessed. Patient is alert, oriented x 3, equal unlabored respirations, skin warm/dry/pink. Vital Signs: 10:31 Pulse 97; Resp 29; Pulse Ox 88% on R/A; hj 10:41 BP 157 / 80; Pulse 89; Resp 22; Pulse Ox 99% on NC; aj1 11:15 BP 152 / 57; Pulse 88; Resp 22; Pulse Ox 96% ; aj1 12:15 BP 140 / 63; Pulse 85; Resp 23; Pulse Ox 96% on NC; aj1 14:55 BP 124 / 61; Pulse 89; Resp 22; Pulse Ox 97% on NC; aj1 16:36 BP 119 / 54; Pulse 90; Resp 21; Pulse Ox 96% on R/A; aj1 17:15 BP 116 / 54; Pulse 59; Resp 20; Pulse Ox 99% on NC; aj1 ED Course: 10:24 Patient arrived in ED. mr 10:25 Brijesh Bush MD is Private Physician. mr 10:27 Joshua Ochoa MD is Attending Physician. wa 10:30 No provider procedures requiring assistance completed. aj1 10:30 Patient has correct armband on for positive identification. Placed in gown. Bed in low aj1 position. Call light in reach. Side rails up X 1. monitoring specialist on. Pulse ox on. NIBP on. 10:30 Arm band placed on. aj1 10:31 Triage completed. hj 10:32 Gwen Garcia, RN is Primary Nurse. aj1 10:45 Missed attempt(s): 24 gauge in right antecubital area. Bleeding controlled, band aid aj1 applied, catheter tip intact. 10:51 XRAY CXR (1 view) In Process Unspecified. EDMS 11:21 EKG done, by certified hyperbaric technologist. reviewed by Joshua Ochoa MD. at1 13:30 Initial lab(s) drawn, by me, sent to lab. Inserted saline lock: 20 gauge in right iw antecubital area, using aseptic technique. Blood collected. 14:44 CT completed. Patient tolerated procedure well. Patient moved to CT via stretcher. vm2 Patient moved back from CT. 14:45 Thorax Wo Con In Process Unspecified. EDMS 15:50 Angel Li DO is Hospitalizing Provider. wa 17:27 Patient admitted, IV remains in place. iw Administered Medications: 11:28 Drug: Xopenex 1.25 mg Route: Inhalation; aj1 17:27 Follow up: Response: No adverse reaction aj1 13:59 Drug: LevaQUIN 500 mg Volume: 100 ml; Route: IVPB; Infused Over: 60 mins; Site: right aj1 forearm; 15:00 Follow up: IV Status: Completed infusion; IV Intake: 100ml aj1 Intake: 15:00 IV: 100ml; Total: 100ml. aj1 Outcome: 15:51 Decision to Hospitalize by Provider. wa 17:24 Admitted to Med/surg accompanied by tech, room 224, with oxygen, with chart, Report iw called to OLIVE Martinez 17:24 Condition: good 17:24 Discharge instructions given to patient, Instructed on the need for admit, Demonstrated understanding of instructions. 17:27 Patient left the ED. iw Signatures: Dispatcher [employer] EDGwen Man RN RN aj1 Rach Marsh Irene, RN RN Jodi Calderon, vp [employer] EKG Tat1 Yared Weathers RN RN Rachelle Mcgrath 2 Joshua Ochoa MD MD nm Corrections: (The following items were deleted from the chart) 12:20 12:15 BP 140 / 63; Pulse 85bpm; Resp 23bpm; Pulse Ox 96% RA; aj1 aj1
--- NOTE | 2018-05-13 16:33 | P.HP ---
Certification for Inpatient Patient admitted to: Inpatient With expected LOS: >2 Midnights Patient will require the following post-hospital care: None Practitioner: I am a practitioner with admitting privileges, knowledge of patient current condition, hospital course, and medical plan of care. Services: Services provided to patient in accordance with Admission requirements found in Title 42 Section 412.3 of the Code of Federal Regulations Patient History Date of Service: 05/13/18 Primary Care Provider: Dr. Bautista; Cardiology-Dr. Mcdonnell Reason for admission: Shortness of breath History of Present Illness: 88-year-old female presented to the emergency room with shortness of breath. Patient with history of CAD, heart valve repair, hypertension and breast cancer in the past. Patient reported increasing shortness of breath today. Patient also reports some fever and increased cough and congestion. She reports sick contacts in the household. Patient denies any significant chest pain. No significant nausea, vomiting, or edema to the lower extremities. In the ER patient evaluated. Patient without fever. White count 14.7, hemoglobin 7.8. Sodium 135, potassium 4.0, creatinine 0.86 with a GFR 62. Glucose 144. Troponin unremarkable. BNP 2700. Influenza test negative. CT of the chest showed extensive chronic interstitial lung disease. In both lobes are scattered interstitial and alveolar opacification without masslike density. Likely pneumonia. Small left pleural effusion noted. There is a 3 cm pleural abutting density in the posterior middle right lung field with a 4 mm area of consolidated parenchyma in the anterior right lung base. Air bronchograms present. Patient admitted for treatment. When I saw the patient the ER, patient appeared comfortable. She did not appear septic. Son at bedside. Patient doing well with respirations on nasal cannula. Allergies acetaminophen [From Tylenol] Allergy (Unknown, Verified 03/23/18 00:10) Nausea/Vomiting cefuroxime Allergy (Unknown, Verified 03/23/18 00:10) Itching codeine [Codeine] Allergy (Unknown, Verified 03/23/18 00:10) Anaphylaxis Penicillins Allergy (Unknown, Verified 03/23/18 00:10) Anaphylaxis procaine HCl [From Novocain] Allergy (Unknown, Verified 03/23/18 00:10) Itching cephalexin [From Keflex] Allergy (Verified 03/23/18 00:10) Anaphylaxis "steroids" Allergy (Uncoded 09/27/17 22:47) Anaphylaxis Opioids - Morphine Allergy (Uncoded 09/27/17 22:47) Anaphylaxis Home medications list reviewed: Yes Home Medications: ALPRAZolam [Xanax*] 0.5 mg PO BEDTIME PRN 03/23/18 Amlodipine Besylate 10 mg PO DAILY 03/23/18 Aspirin [Low Dose Aspirin EC] 81 mg PO DAILY 03/23/18 Clopidogrel Bisulfate [Plavix*] 0.5 tab PO BEDTIME 03/23/18 Loperamide HCl [Anti-Diarrheal] 2 tab PO DAILY PRN 03/23/18 Metoprolol Tartrate [Lopressor*] 25 mg PO BID 03/23/18 Spironolactone [Aldactone*] 25 mg PO BID #60 tab 03/26/18 - Past Medical/Surgical History Diabetic: No -: Anxiety -: Hypertension -: History breast cancer -: CAD -: History CVA-TIA -: History of heart valve repair -: Suspect chronic anemia -: Mitral Valve replacement -: Left Mastectomy -: Appendectomy -: Hysterectomy -: Tonsillectomy Psychosocial/ Personal History: Patient lives with granddaughter. She is . She has 2 children. - Family History Father -: Stroke - Social History Smoking Status: Never smoker Alcohol use: No CD- Drugs: No Caffeine use: Yes Place of Residence: Home Review of Systems General: Fever, Weakness, As per HPI Eyes: Unremarkable ENT: Nose Congestion, As per HPI Respiratory: Shortness of Breath, SOB with Excertion, Sputum, As per HPI Cardiovascular: Unremarkable Gastrointestinal: Unremarkable Genitourinary: Unremarkable Musculoskeletal: Unremarkable Integumentary: Unremarkable Neurological: Unremarkable Lymphatics: Unremarkable Physical Examination - Physical Exam General: Alert, In no apparent distress, Oriented x3, Cooperative HEENT: Atraumatic, Normocephalic, Mucous membr. moist/pink Neck: Supple, No Thyromegaly Respiratory: Diminished (To the right lower side), Crackles/rales (Bilateral) Cardiovascular: Normal pulses, Regular rate/rhythm Gastrointestinal: Normal bowel sounds, Soft and benign, Non-distended, No tenderness, No masses, No rebound, No guarding Musculoskeletal: No erythema, No tenderness, No warmth Integumentary: No tenderness/swelling, No erythema, No warmth, No cyanosis Neurological: Normal speech, Normal strength at 5/5 x4 extr, Normal tone, Normal affect - Studies Laboratory Data (last 24 hrs) 05/13/18 13:30: PT 14.0 H, INR 1.18 05/13/18 13:30: WBC 14.7 H, Hgb 7.8 L*, Hct 23.7 L, Plt Count 299 05/13/18 13:30: Sodium 135 L, Potassium 4.0, BUN 21 H, Creatinine 0.86, Glucose 144 H, Magnesium 1.9, Total Bilirubin 0.3, AST 29, ALT 18, Alkaline Phosphatase 138 H Microbiology Data (last 24 hrs): 05/13/18 11:28 Nasopharnyx Influenza Type A Antigen Screen - Final 05/13/18 11:28 Nasopharnyx Influenza Type B Antigen Screen - Final Assessment and Plan - Plan Impression: Shortness of breath with hypoxia with noted CT scan showing extensive chronic interstitial disease with 3 cm pleural abutting density in the posterior mid right lung, 4 mm area of consolidated parenchyma in the right lung base, small left pleural effusion suspect right-sided pneumonia Hypertension CAD Anemia likely of chronic disease History of breast cancer with prior mastectomy History of heart valve repair Plan: Shortness of breath with hypoxia with noted CT scan showing extensive chronic interstitial disease with 3 cm pleural abutting density in the posterior mid right lung, 4 mm area of consolidated parenchyma in the right lung base, small left pleural effusion suspect right-sided pneumonia: Patient will be admitted for treatment. Blood and sputum cultures obtained. Influenza test negative. Will monitor chest x-ray. Will provide medication for congestion and shortness of breath. Will start Levaquin. Will obtain echocardiogram to further evaluate. Will consult pulmonology for further recommendation. Will continue to wean off oxygen. Maintain sats above 90%. Will start low-dose IV fluids. Hypertension: Blood pressure slightly low. Will discontinue Norvasc. Will continue with metoprolol but monitor blood pressure closely. CAD: Continue with aspirin Anemia likely of chronic disease: Will evaluate the anemia. If decrease patient may require transfusion. Will monitor closely. No bleeding noted at this time. History of breast cancer with prior mastectomy: Stable History of heart valve repair: Will check echocardiogram. Discharge Plan: Home Plan to discharge in: Greater than 2 days - Advance Directives Does patient have a Living Will: No Does patient have a Durable POA for Healthcare: Yes - Code Status/Comfort Care Code Status Assessed: Yes (Patient is DNR.) Time Spent Managing Pts Care (In Minutes): 55
[2018-05-13] MEDS ORDERED: ALBUTEROL 2.5 MG/3 ML NEB SOL NEB PRN (17:04)
[2018-05-13] MEDS ORDERED: IPRATROPIUM BROM 0.5MG/2.5ML NEB PRN (17:04)
[2018-05-13] MEDS ORDERED: ONDANSETRON 4 MG/2 ML VIAL IV PRN (17:04)
[2018-05-13 18:12] LABS: Ferritin 74.5 ng/mL (8-388); Thyroid Stimulating Hormone 1.83 uIU/mL (0.360-3.740)
[2018-05-13 18:14] VITALS: BMI 21.9
[2018-05-13] MEDS: METOPROLOL TAR 25 MG TAB PO SCH (18:48)
[2018-05-13] MEDS: NA CHLORIDE 0.9% 1,000 ML IV SCH (18:49)
[2018-05-13] MEDS: ENOXAPARIN 40 MG/0.4 ML SQ SCH (18:49)
[2018-05-13] MEDS ORDERED: ALPRAZOLAM 0.5 MG TABLET PO PRN (19:28)
[2018-05-13] MEDS: GUAIFENESIN 600 MG SA TAB PO SCH (21:24)
[2018-05-14 05:14] LABS: Absolute Lymphocytes (CBC) 1.7 K/uL (0.7-4.9); Absolute Monocytes 1.1 K/uL (0.1-1.3); Absolute Neutrophil 9.5 K/uL (1.8-8.0); Basophils % 0.3 % (0-1.3); Eosinophils % 0.5 % (0-4.4); Lymphocytes % 13.6 % (15.3-44.8); MPV 8.2 fL (7.6-11.3); Monocytes % 8.8 % (3.3-12.3); RBC Red Blood Cell Count 3.57 M/uL (3.86-4.86)
[2018-05-14 05:33] LABS: Magnesium 1.9 mg/dL (1.8-2.4); Potassium 4.7 mmol/L (3.5-5.1)
[2018-05-14] MEDS: METOPROLOL TAR 25 MG TAB PO SCH ×2 (05:33→18:46)
[2018-05-14] MEDS: ENOXAPARIN 40 MG/0.4 ML SQ SCH (08:06)
[2018-05-14] MEDS: ALPRAZOLAM 0.5 MG TABLET PO PRN (08:06)
[2018-05-14] MEDS: GUAIFENESIN 600 MG SA TAB PO SCH ×2 (08:06→21:16)
[2018-05-14] MEDS: ASPIRIN EC 81 MG TAB PO SCH (08:06)
--- NOTE | 2018-05-14 08:43 | RAD REPORT ---
EXAM DESCRIPTION: Guerline Dennis And Arianna (2 Views)05/14/2018 6:56 am CLINICAL HISTORY: Cough COMPARISON: May 13 FINDINGS: Mild worsening in the right and no significant change in the left pulmonary opacities. . The heart is normal size Postsurgical changes involve the chest IMPRESSION: Mild worsening in the right and no significant change in left pulmonary opacities consis tent pneumonia
--- NOTE | 2018-05-14 11:25 | P.CNS ---
Date of Consult: 05/14/18 Primary Care Provider: Dr. Bautista; Cardiology-Dr. Mcdonnell Chief Complaint: Was CT scan History of Present Illness: Patient is 88 years of age admitted from the emergency room with shortness of breath and hypoxemia as came on rather suddenly also been complaining of fever chills no chest pain cough of sputum patient has never smoked and chest x-ray shows bilateral patchy changes Allergies acetaminophen [From Tylenol] Allergy (Unknown, Verified 03/23/18 00:10) Nausea/Vomiting cefuroxime Allergy (Unknown, Verified 03/23/18 00:10) Itching codeine [Codeine] Allergy (Unknown, Verified 05/13/18 23:44) Anaphylaxis Penicillins Allergy (Unknown, Verified 05/13/18 23:44) Anaphylaxis procaine HCl [From Novocain] Allergy (Unknown, Verified 03/23/18 00:10) Itching cephalexin [From Keflex] Allergy (Verified 05/13/18 23:44) Anaphylaxis "steroids" Allergy (Uncoded 09/27/17 22:47) Anaphylaxis Opioids - Morphine Allergy (Uncoded 09/27/17 22:47) Anaphylaxis Home Medications: ALPRAZolam [Xanax*] 0.5 mg PO BEDTIME PRN 03/23/18 Amlodipine Besylate 10 mg PO DAILY 03/23/18 Aspirin [Low Dose Aspirin EC] 81 mg PO DAILY 03/23/18 Loperamide HCl [Anti-Diarrheal] 2 tab PO DAILY PRN 03/23/18 Metoprolol Tartrate [Lopressor*] 25 mg PO BID 03/23/18 - Past Medical/Surgical History Diabetic: No -: Anxiety -: Hypertension -: History breast cancer -: CAD -: History CVA-TIA -: History of heart valve repair -: Suspect chronic anemia -: Mitral Valve replacement -: Left Mastectomy -: Appendectomy -: Hysterectomy -: Tonsillectomy Psychosocial/ Personal History: Patient lives with granddaughter. She is . She has 2 children. - Family History Father Medical History: Stroke - Social History Smoking Status: Unknown if ever smoked Alcohol use: No CD- Drugs: No Caffeine use: Yes Place of Residence: Home Review of Systems 10-point ROS is otherwise unremarkable General: Weakness Respiratory: Shortness of Breath Physical Examination Temp Pulse Resp BP Pulse Ox 98.4 F 87 20 156/71 H 92 02/08/19 08:00 05/14/18 08:00 05/14/18 08:00 05/14/18 08:00 05/14/18 08:00 General: Alert, Oriented x3 HEENT: Atraumatic Neck: Supple Respiratory: Clear to auscultation bilaterally Cardiovascular: No edema, Regular rate/rhythm, Normal S1 S2 Gastrointestinal: Normal bowel sounds, Soft and benign Laboratory Data (last 24 hrs) 05/13/18 13:30: PT 14.0 H, INR 1.18 05/13/18 13:30: WBC 14.7 H, Hgb 7.8 L*, Hct 23.7 L, Plt Count 299 05/13/18 13:30: Sodium 135 L, Potassium 4.0, BUN 21 H, Creatinine 0.86, Glucose 144 H, Magnesium 1.9, Total Bilirubin 0.3, AST 29, ALT 18, Alkaline Phosphatase 138 H - Problems (1) Pneumonia Current Visit: Yes Status: Acute Plan: Patient is 88 years of age admitted with acute shortness of breath fever chills elevated white count bilateral patchy changes suspect pneumonia she has never smoked patient was mildly anemic white count elevated I agree with levofloxacin also had prednisone patient can be discharged home tomorrow on levofloxacin on low-dose prednisone 10 b.i.d. for 10 days to follow up with me in 2 weeks with a pre clinic chest x-ray cultures are pending patient has a mild anemia hemoglobin has improved Qualifiers: Pneumonia type: due to unspecified organism
[2018-05-14] MEDS: predniSONE 20 MG TAB PO SCH ×2 (12:20→21:16)
[2018-05-14] MEDS: NA CHLORIDE 0.9% 1,000 ML IV SCH (13:04)
--- NOTE | 2018-05-14 13:11 | P.PN ---
Subjective Date of Service: 05/14/18 Primary Care Provider: Dr. Bautista; Cardiology-Dr. Mcdonnell Chief Complaint: Shortness of breath Subjective: Other (Patient improved.) Physical Examination - Vital Signs Temperature: 98.4 F Blood Pressure: 156/71 Pulse: 87 Respirations: 20 Pulse Ox (%): 92 - Physical Exam General: Alert, In no apparent distress, Oriented x3, Cooperative HEENT: Atraumatic Neck: Supple Respiratory: Crackles/rales (To the bases) Cardiovascular: Normal pulses, Regular rate/rhythm Gastrointestinal: Normal bowel sounds, Soft and benign, Non-distended, No tenderness, No masses, No rebound, No guarding Musculoskeletal: No erythema, No tenderness, No warmth Integumentary: No tenderness/swelling, No erythema, No warmth, No cyanosis Neurological: Normal speech, Normal strength at 5/5 x4 extr, Normal tone, Normal affect - Studies Laboratory Data (last 24 hrs) 05/13/18 13:30: PT 14.0 H, INR 1.18 05/13/18 13:30: WBC 14.7 H, Hgb 7.8 L*, Hct 23.7 L, Plt Count 299 05/13/18 13:30: Sodium 135 L, Potassium 4.0, BUN 21 H, Creatinine 0.86, Glucose 144 H, Magnesium 1.9, Total Bilirubin 0.3, AST 29, ALT 18, Alkaline Phosphatase 138 H Microbiology Data (last 24 hrs): 05/13/18 11:28 Nasopharnyx Influenza Type A Antigen Screen - Final 05/13/18 11:28 Nasopharnyx Influenza Type B Antigen Screen - Final Medications List Reviewed: Yes Assessment & Plan Discharge Plan: Home Plan to discharge in: 48 Hours Physician Review Additional Text: Impression: Shortness of breath with hypoxia with noted CT scan showing extensive chronic interstitial disease with 3 cm pleural abutting density in the posterior mid right lung, 4 mm area of consolidated parenchyma in the right lung base, small left pleural effusion suspect right-sided pneumonia Hypertension CAD Anemia likely of chronic disease with iron and B12 deficiency History of breast cancer with prior mastectomy History of heart valve repair Plan: Shortness of breath with hypoxia with noted CT scan showing extensive chronic interstitial disease with bilateral pneumonia, small left pleural effusion: Patient will continue with medication. Blood, sputum and urine cultures obtained. Will wean off oxygen. Patient appears improved. Continue with antibiotic therapy. Case discussed with pulmonology. Will obtain echocardiogram. Hypertension: Continue with current blood pressure medication. Will monitor closely. CAD: Continue with aspirin Anemia likely of chronic disease with iron and B12 deficiency: Will monitor closely. Will continue with B12 supplementation. Patient does not tolerate oral iron. History of breast cancer with prior mastectomy: Stable History of heart valve repair: Will check echocardiogram. Time Spent Managing Pts Care (In Minutes): 55
[2018-05-14] MEDS ORDERED: Levofloxacin500mg IV 500 MG/100 ML BAG IV SCH (14:00)
--- NOTE | 2018-05-14 17:24 | ECHO ---
HEIGHT: 5 ft 5 in WEIGHT: 131 lb 6.4 oz DATE OF STUDY: 05/14/[address]: Angel Li DO 2-DIMENSIONAL: YES M.MODE: YES DOPPLER: YES COLOR FLOW: YES TDS: PORTABLE: DEFINITY: BUBBLE STUDY: DIAGNOSIS: SHORTNESS OF BREATH. CARDIAC HISTORY: CATHERIZATION: NO SURGERY: YES PROSTHETIC VALVE: AORTIC VALVE REPLACEMENT PACEMAKER: NO MEASUREMENTS (cm) DIASTOLIC (NORMALS) SYSTOLIC (NORMALS) IVSd 1.5 (0.6-1.2) LVIDs 2.1 (2.0-3.5) LVEF 75% LVIDd 3.7 (3.5-5.7) %FS 43% LVPWd 1.3 (0.6-1.2) 2 DIMENSIONAL ASSESSMENT: RIGHT ATRIUM: NORMAL LEFT ATRIUM: NORMAL RIGHT VENTRICLE: NORMAL LEFT VENTRICLE: LEFT VENTRICULAR HYPERTROPHY TRICUSPID VALVE: NORMAL MITRAL VALVE: NORMAL PULMONIC VALVE: NORMAL AORTIC VALVE: BIO-PROSTHETIC PERICARDIAL EFFUSION: NONE AORTIC ROOT: NORMAL LEFT VENTRICULAR WALL MOTION: NORMAL DOPPLER/COLOR FLOW: MILD AORTIC REGURGITATION, MITRAL REGURGITATION, AND TRICUSPID REGURGITATION. MILD AORTIC STENOSIS. ESTIMATED RIGHT VENTRICULAR SYSTOLIC PRESSURE 45 mmHg. MILD PULMONARY HYPERTENSION. COMMENTS: NORMAL LEFT VENTRICULAR EJECTION FRACTION. LEFT VENTRICULAR HYPERTROPHY. BIO-PROSTHETIC AORTIC VALVE WITH MILD AORTIC STENOSIS AND MILD AORTIC REGURGITATION. MILD MITRAL REGURGITATION AND TRICUSPID REGURGITATION. MILD PULMONARY HYPERTENSION. TECHNOLOGIST: KARENA DONALDSON
[2018-05-15] MEDS: ALPRAZOLAM 0.5 MG TABLET PO PRN ×2 (01:41→23:55)
[2018-05-15] MEDS: METOPROLOL TAR 25 MG TAB PO SCH ×2 (06:18→17:59)
[2018-05-15 06:51] LABS: Magnesium 2.1 mg/dL (1.8-2.4); Potassium 5.4 mmol/L (3.5-5.1)
[2018-05-15 06:56] LABS: Absolute Lymphocytes (CBC) 0.7 K/uL (0.7-4.9); Absolute Monocytes 0.2 K/uL (0.1-1.3); Absolute Neutrophil 7.6 K/uL (1.8-8.0); Basophils % 0.1 % (0-1.3); Hematocrit 30.7 % (36.0-45.0); Lymphocytes % 8.1 % (15.3-44.8); MPV 8.2 fL (7.6-11.3); Monocytes % 1.8 % (3.3-12.3); RBC Red Blood Cell Count 3.51 M/uL (3.86-4.86)
[2018-05-15] MEDS: GUAIFENESIN 600 MG SA TAB PO SCH ×2 (08:56→21:25)
[2018-05-15] MEDS: predniSONE 20 MG TAB PO SCH ×2 (08:56→21:25)
[2018-05-15] MEDS: ASPIRIN EC 81 MG TAB PO SCH (08:56)
[2018-05-15] MEDS: ENOXAPARIN 40 MG/0.4 ML SQ SCH (08:56)
--- NOTE | 2018-05-15 10:15 | P.PN ---
Subjective Date of Service: 05/15/18 Primary Care Provider: Dr. Bautista; Cardiology-Dr. Mcdonnell Chief Complaint: Shortness of breath Subjective: Improving (Patient still requires oxygen.) Physical Examination - Vital Signs Temperature: 97.4 F Blood Pressure: 136/68 Pulse: 69 Respirations: 20 Pulse Ox (%): 97 - Physical Exam General: Alert, In no apparent distress, Oriented x3, Cooperative HEENT: Atraumatic Neck: Supple Respiratory: Crackles/rales (Crackles to the bases but improved aeration) Cardiovascular: Normal pulses, Regular rate/rhythm Gastrointestinal: Normal bowel sounds, Soft and benign, Non-distended, No masses , No rebound, No guarding Musculoskeletal: No erythema, No tenderness, No warmth Integumentary: No tenderness/swelling, No erythema, No warmth, No cyanosis Neurological: Normal speech, Normal strength at 5/5 x4 extr, Normal tone, Normal affect - Studies Medications List Reviewed: Yes Assessment & Plan Discharge Plan: Home Plan to discharge in: 48 Hours Physician Review Additional Text: Impression: Shortness of breath with hypoxia with noted CT scan showing extensive chronic interstitial disease with bilateral pneumonia, small left pleural effusion: Hypertension CAD Anemia likely of chronic disease with iron and B12 deficiency History of breast cancer with prior mastectomy 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 Will transition to oral Levaquin. Will continue to wean off oxygen. Patient not taking oxygen at home. Will ambulate with physical therapy. Await culture results. Home once patient is weaned off oxygen. Provide medication for cough and congestion. Recheck x-ray today. Will discuss with pulmonology. Hypertension: Continue with current blood pressure medication. Will monitor closely. CAD: Continue with aspirin Anemia likely of chronic disease with iron and B12 deficiency: Will monitor closely. Will continue with B12 supplementation. Patient does not tolerate oral iron. Patient has taking IV iron in the past. 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 Continue monitor closely. Echo were reviewed. Time Spent Managing Pts Care (In Minutes): 55
[2018-05-15] MEDS: levoFLOXacin 500 MG TAB PO SCH (10:41)
--- NOTE | 2018-05-15 11:20 | RAD REPORT ---
EXAM DESCRIPTION: Guerline Pa And Lat (2 Views)05/15/2018 11:11 am CLINICAL HISTORY: Cough COMPARISON: May FINDINGS: Mild improvement in the right and no significant change in the left pulmonary opacities co nsistent with pneumonia Small pleural effusions
[2018-05-16 02:40] LABS: Urine Appearance CLEAR; Urine Bilirubin NEGATIVE (NEG); Urine Blood NEGATIVE (NEG); Urine Color YELLOW; Urine Glucose NEGATIVE (NEG); Urine Protein NEGATIVE (NEG); Urine Specific Gravity <=1.005 (1.005-1.030); Urine Urobilinogen 0.2 mg/dL (0.2-1.0); Urine pH 6.5 (5.0-7.0)
[2018-05-16 02:57] LABS: Urine Microscopic Reflex NO UMIC
[2018-05-16 05:16] LABS: Absolute Lymphocytes (CBC) 0.8 K/uL (0.7-4.9); Absolute Monocytes 0.3 K/uL (0.1-1.3); Absolute Neutrophil 9.3 K/uL (1.8-8.0); Basophils % 0.1 % (0-1.3); Hematocrit 30.7 % (36.0-45.0); Lymphocytes % 8.1 % (15.3-44.8); MPV 7.9 fL (7.6-11.3); Monocytes % 2.7 % (3.3-12.3); RBC Red Blood Cell Count 3.53 M/uL (3.86-4.86)
[2018-05-16 05:36] LABS: Magnesium 2.1 mg/dL (1.8-2.4)
[2018-05-16 05:41] LABS: Blood Morphology Comment NOT SEEN (NOT SEEN); Platelet Estimate ADEQ; Urine White Blood Cell Casts OK
[2018-05-16] MEDS: METOPROLOL TAR 25 MG TAB PO SCH (06:09)
[2018-05-16 08:48] VITALS: TEMP 97.5
[2018-05-16] MEDS ORDERED: CYANOCOBALAMIN 1,000 MCG TAB PO SCH (09:00)
[2018-05-16] MEDS: ENOXAPARIN 40 MG/0.4 ML SQ SCH (09:02)
[2018-05-16] MEDS: predniSONE 20 MG TAB PO SCH (09:02)
[2018-05-16] MEDS: ASPIRIN EC 81 MG TAB PO SCH (09:02)
[2018-05-16] MEDS: GUAIFENESIN 600 MG SA TAB PO SCH (09:02)
[2018-05-16] MEDS: levoFLOXacin 500 MG TAB PO SCH (09:02)
--- NOTE | 2018-05-16 11:17 | P.DS ---
Admission Date: 05/13/18 Discharge Date: 05/16/18 Primary Care Provider: Dr. Bautista; Cardiology-Dr. Mcdonnell Disposition: ROUTINE DISCHARGE Discharge Condition: GOOD Reason for Admission: Shortness of breath Consultations: Pulmonary-Dr. Vasquez Procedures: CT chest: COMPARISON: Chest films same date, CT study April 2012 TECHNIQUE: Axial 5 mm thick images of the chest were obtained without IV contrast. All CT scans are performed using dose optimization technique as appropriate and may include automated exposure control or mA/KV adjustment according to patient size. FINDINGS: Patient has extensive chronic interstitial lung disease evident. In both upper lobes are scattered areas of interstitial and alveolar opacification without masslike density. This is most likely pneumonia. Interstitial and alveolar opacification in the medial lower left lung field noted with a small left pleural effusion. There is atelectasis in the posterior left gutter. Minimal right pleural fluid is present. There is a 3 centimeter pleural abutting density in the posterior mid right lung field with a 4 millimeter area of consolidated parenchyma in the anterior right lung base. Air bronchograms are present within this mass. No endobronchial lesions seen. No pneumothorax. No abnormal mediastinal or hilar masses or lymphadenopathy seen. No gross aortic or pulmonary artery finding suspected. Assessment is limited in the absence of IV contrast. No pericardial effusion. No chest wall mass or abnormal axillary lymphadenopathy. IMPRESSION: Lung parenchymal consolidation anterior right lung base and posterior mid right lung field as well as scattered interstitial and alveolar opacities throughout all lung cruz. Consolidated densities in the right lung field are most likely pneumonia as are the scattered interstitial and alveolar opacities. Small left pleural effusion. Malignancy cannot be excluded for the right lung field densities. Follow-up is needed following medical management with reimaging CT chest in approximately 6 weeks. CXR follow up: COMPARISON: May FINDINGS: Mild improvement in the right and no significant change in the left pulmonary opacities consistent with pneumonia Small pleural effusions ECHO: EF 75% LEFT VENTRICULAR WALL MOTION: NORMAL DOPPLER/COLOR FLOW: MILD AORTIC REGURGITATION, MITRAL REGURGITATION, AND TRICUSPID REGURGITATION. MILD AORTIC STENOSIS. ESTIMATED RIGHT VENTRICULAR SYSTOLIC PRESSURE 45 mmHg. MILD PULMONARY HYPERTENSION. COMMENTS: NORMAL LEFT VENTRICULAR EJECTION FRACTION. LEFT VENTRICULAR HYPERTROPHY. BIO-PROSTHETIC AORTIC VALVE WITH MILD AORTIC STENOSIS AND MILD AORTIC REGURGITATION. MILD MITRAL REGURGITATION AND TRICUSPID REGURGITATION. MILD PULMONARY HYPERTENSION. Medical Problem List: Shortness of breath with hypoxia with noted CT scan showing extensive chronic interstitial disease with bilateral pneumonia with small left pleural effusion Hypertension CAD Anemia likely of chronic disease with iron and B12 deficiency History of breast cancer with prior mastectomy History of bio prostatic aortic valve replacement with mild pulmonary hypertension Brief History of Present Illness: 88-year-old female presented to the emergency room with shortness of breath. Patient with history of CAD, heart valve repair, hypertension and breast cancer in the past. Patient reported increasing shortness of breath today. Patient also reports some fever and increased cough and congestion. She reports sick contacts in the household. Patient denies any significant chest pain. No significant nausea, vomiting, or edema to the lower extremities. In the ER patient evaluated. Patient without fever. White count 14.7, hemoglobin 7.8. Sodium 135, potassium 4.0, creatinine 0.86 with a GFR 62. Glucose 144. Troponin unremarkable. BNP 2700. Influenza test negative. CT of the chest showed extensive chronic interstitial lung disease. In both lobes are scattered interstitial and alveolar opacification without masslike density. Likely pneumonia. Small left pleural effusion noted. There is a 3 cm pleural abutting density in the posterior middle right lung field with a 4 mm area of consolidated parenchyma in the anterior right lung base. Air bronchograms present. Patient admitted for treatment. When I saw the patient the ER, patient appeared comfortable. She did not appear septic. Son at bedside. Patient doing well with respirations on nasal cannula. Hospital Course: Patient presented with shortness of breath with hypoxia. CT scan showed extensive chronic interstitial disease with bilateral pneumonia and small left pleural effusion. The patient was admitted for treatment. Patient seen and evaluated by pulmonology. Her condition improved. At discharge she did not require any oxygen requirement and was without any significant shortness of breath. At discharge she will continue with Levaquin 500 mg once daily for 7 days, Tessalon 100 mg 3 times a day as needed for cough and Mucinex 6 mg twice daily for congestion. Patient will also continue with Pro air 2 puffs 3 times a day as needed for shortness of breath and prednisone 10 mg 1 pill twice daily for 5 days then 1 pill once daily for 5 days. Recommendation is for the patient to follow up with pulmonology in 1 week to follow up this hospitalization. Recommend to recheck chest x-ray in 4-6 weeks to monitor resolution. Patient may require repeat CT scan in the future to further evaluate. This can be further addressed by pulmonology. Patient with hypertension. Blood pressure remained stable with medication. Norvasc was discontinued due to edema. Patient continued with metoprolol. At discharge she will continue with metoprolol 25 mg 1 pill twice daily. Recommend to maintain blood pressures less 150/80. If blood pressure remains elevated patient may require additional medication or adjustment in medication. This can be further addressed by her PCP. Patient with history of CAD and bioprostatic aortic valve replacement with mild pulmonary hypertension. Patient will continue with aspirin 81 mg daily. Patient may follow up with cardiology as an outpatient to further monitor. Patient with anemia of chronic disease and iron and B12 deficiency. Patient does not tolerate oral iron and has taking IV iron in the past. At discharge she will continue with multi vitamin daily and vitamin-B 12 once daily. Patient may require IV iron as an outpatient. This can be further addressed by her PCP. Recommend to recheck lab-CBC in 1-2 weeks to monitor progress. Recommend to follow up with hematology and GI as an outpatient to further monitor. Vital Signs/Physical Exam: Temp Pulse Resp BP Pulse Ox 97.5 F 64 18 147/69 H 95 05/16/18 08:00 05/16/18 08:00 05/16/18 08:00 05/16/18 08:00 05/16/18 08:00 General: Alert, In no apparent distress, Oriented x3, Cooperative HEENT: Atraumatic Neck: Supple Respiratory: Clear to auscultation bilaterally, Normal air movement Cardiovascular: Normal pulses, Regular rate/rhythm Gastrointestinal: Normal bowel sounds, Soft and benign, Non-distended, No tenderness, No masses, No rebound, No guarding Musculoskeletal: No erythema, No tenderness, No warmth Integumentary: No tenderness/swelling, No erythema, No warmth, No cyanosis Neurological: Normal speech, Normal strength at 5/5 x4 extr, Normal tone, Normal affect Laboratory Data at Discharge: WBC 10.4 K/uL (4.3-10.9) D 05/16/18 04:54 Hgb 9.9 g/dL (12.0-15.0) L 05/16/18 04:54 Hct 30.7 % (36.0-45.0) L 05/16/18 04:54 Plt Count 357 K/uL (152-406) D 05/16/18 04:54 PT 14.0 SECONDS (9.5-12.5) H 05/13/18 13:30 INR 1.18 05/13/18 13:30 Sodium 139 mmol/L (136-145) 05/16/18 04:54 Potassium 5.0 mmol/L (3.5-5.1) 05/16/18 04:54 BUN 25 mg/dL (7-18) H 05/16/18 04:54 Creatinine 0.82 mg/dL (0.55-1.3) 05/16/18 04:54 Glucose 141 mg/dL (74-106) H 05/16/18 04:54 Magnesium 2.1 mg/dL (1.8-2.4) 05/16/18 04:54 Total Bilirubin 0.3 mg/dL (0.2-1.0) 05/13/18 13:30 AST 29 U/L (15-37) 05/13/18 13:30 ALT 18 U/L (12-78) 05/13/18 13:30 Alkaline Phosphatase 138 U/L (45-117) H 05/13/18 13:30 Home Medications: RX: ALPRAZolam [Xanax*] 0.5 mg PO BEDTIME PRN 03/23/18 RX: Aspirin [Low Dose Aspirin EC] 81 mg PO DAILY 03/23/18 RX: Loperamide HCl [Anti-Diarrheal] 2 tab PO DAILY PRN 03/23/18 RX: Metoprolol Tartrate [Lopressor*] 25 mg PO BID 03/23/18 Albuterol Sulfate [Proair Hfa] 2 puff IH TID PRN #1 hfa.aer.ad 05/16/18 Benzonatate [Tessalon Perle] 100 mg PO TID PRN #10 cap 05/16/18 Guaifenesin [Mucinex] 600 mg PO BID #20 tab.er.12h 05/16/18 RX: Cyanocobalamin [Vitamin B-12*] 1,000 mcg PO DAILY #90 tab 05/16/18 RX: Multivitamin [Daily Multiple Vitamin] 1 each PO DAILY #90 tablet 05/16/18 RX: levoFLOXacin [Levaquin*] 500 mg PO DAILY #7 tab 05/16/18 RX: predniSONE [Deltasone*] 10 mg PO SEECOM #15 tab 05/16/18 New Medications: Albuterol Sulfate [Proair Hfa] 2 puff IH TID PRN #1 hfa.aer.ad PRN Reason: Shortness Of Breath Benzonatate [Tessalon Perle] 100 mg PO TID PRN #10 cap PRN Reason: Cough Guaifenesin [Mucinex] 600 mg PO BID #20 tab.er.12h RX: Cyanocobalamin [Vitamin B-12*] 1,000 mcg PO DAILY #90 tab RX: levoFLOXacin [Levaquin*] 500 mg PO DAILY #7 tab RX: Multivitamin [Daily Multiple Vitamin] 1 each PO DAILY #90 tablet RX: predniSONE [Deltasone*] 10 mg PO SEECOM #15 tab Patient Discharge Instructions: 1. Patient will follow up with her PCP in 1 week to follow up this hospitalization. 2. Patient presented with shortness of breath with hypoxia. CT scan showed extensive chronic interstitial disease with bilateral pneumonia and small left pleural effusion. The patient was admitted for treatment. Patient seen and evaluated by pulmonology. Her condition improved. At discharge she did not require any oxygen requirement and was without any significant shortness of breath. At discharge she will continue with Levaquin 500 mg once daily for 7 days, Tessalon 100 mg 3 times a day as needed for cough and Mucinex 6 mg twice daily for congestion. Patient will also continue with Pro air 2 puffs 3 times a day as needed for shortness of breath and prednisone 10 mg 1 pill twice daily for 5 days then 1 pill once daily for 5 days. Recommendation is for the patient to follow up with pulmonology in 1 week to follow up this hospitalization. Recommend to recheck chest x-ray in 4-6 weeks to monitor resolution. Patient may require repeat CT scan in the future to further evaluate. This can be further addressed by pulmonology. 3. Patient with hypertension. Blood pressure remained stable with medication. Norvasc was discontinued due to edema. Patient continued with metoprolol. At discharge she will continue with metoprolol 25 mg 1 pill twice daily. Recommend to maintain blood pressures less 150/80. If blood pressure remains elevated patient may require additional medication or adjustment in medication. This can be further addressed by her PCP. 4. Patient with history of CAD and bioprostatic aortic valve replacement with mild pulmonary hypertension. Patient will continue with aspirin 81 mg daily. Patient may follow up with cardiology as an outpatient to further monitor. 5. Patient with anemia of chronic disease and iron and B12 deficiency. Patient does not tolerate oral iron and has taking IV iron in the past. At discharge she will continue with multi vitamin daily and vitamin-B 12 once daily. Patient may require IV iron as an outpatient. This can be further addressed by her PCP. Recommend to recheck lab-CBC in 1-2 weeks to monitor progress. Recommend to follow up with hematology and GI as an outpatient to further monitor. Diet: AHA Activity: Fall precautions Time spent managing pt's care (in minutes): 55
[2018-05-16 13:34] VITALS: O2SAT 93
[2018-05-16 14:14] VITALS: BP 138/65
== END 2018-05-16 15:54 | disposition home or self-care (01) | DRG 194 ==
LOC: ER 10:23 → ERHOLD 16:02 → 2ND 17:04
PROVIDERS: ADMIT Family Medicine; ATTEND Family Medicine
DX: J18.9 Pneumonia, unspecified organism (principal); J90 Pleural effusion, not elsewhere classified; I10 Essential (primary) hypertension; I25.10 Atherosclerotic heart disease of native coronary artery without angina pectoris; D63.8 Anemia in other chronic diseases classified elsewhere; E53.8 Deficiency of other specified B group vitamins; E61.1 Iron deficiency; Z85.3 Personal history of malignant neoplasm of breast; Z90.10 Acquired absence of unspecified breast and nipple; Z95.2 Presence of prosthetic heart valve; I27.20 Pulmonary hypertension, unspecified; Z88.1 Allergy status to other antibiotic agents; Z88.5 Allergy status to narcotic agent; Z88.0 Allergy status to penicillin; Z86.73 Personal history of transient ischemic attack (TIA), and cerebral infarction without residual deficits; R09.02 Hypoxemia
CPT/HCPCS: 36415; 71045; 71046; 71250; 80048; 80076; 81003; 82607; 82728; 83540; 83735; 83880; 84132; 84145; 84439; 84443; 84466; 84484; 85025; 85610; 87040; 87804; 92610; 93005; 93306; 96365; 97116; 97163; 97530; 99285; J1650; J7030; J7512

== ENCOUNTER 2018-05-29 12:43 | Emergency (ER) | payer OTHER ==
--- OUTSIDE RECORDS SUMMARY | 2018-05-29 12:46 | XMS REPORT | Clinical Summary ---
:1930 Author Organization [facility] Address [address] [place] [address] Care Team Providers Name Role Phone Awa [...] cerebral daily. ischemia, unspecified type, S/P AVR ticagrelor Take 1 tablet 180 tablet 0 04/07/2018 Active (BRILINTA) 90 mg (90 mg total) tablet by mouth 2 (two) times a day. metoprolol Take 1 tablet 180 tablet 3 05/25/2018 05/25/2019 Active tartrate (50 mg total) (LOPRESSOR) 50 mg by mouth 2 tablet (two) times a day. amLODIPine Take 1 [...] 25 mg MOUTH TWICE A tablet DAY metoprolol Take 1 tablet 180 tablet 3 12/08/2017 05/25/2018 Discontinued tartrate (25 mg total) (LOPRESSOR) 25 mg by mouth 2 tabletIndications: (two) times a Transient cerebral day. ischemia, unspecified type, S/P AVR Active Problems Problem Noted Date TIA (transient ischemic attack) 10/03/2017 Essential hypertension 10/03/2017 AVD (aortic valve disease) 11/04/2016 S/P AVR 05/01/2016 Encounters Date Type Specialty Care Team Description 05/25/2018 Office Visit Cardiology Tim Villagran MD S/P AVR (Primary Dx) ; Essential hypertension 04/07/2018 Telephone Cardiology Vivek Pimentel MA Medication [...] disorder; S/P AVR; AVD (aortic valve disease) after 05/28/2017 Family History Medical History Relation Name Comments [...] Vital Sign Reading Time Taken Blood Pressure 185/81 05/25/2018 9:17 AM PATIENT INFORMATION COORDINATOR Pulse 60 05/25/2018 9:17 AM PATIENT INFORMATION COORDINATOR Temperature - - Respiratory Rate - - Oxygen Saturation - - Inhaled Oxygen Concentration - - Weight 57.2 kg (126 lb) 05/25/2018 9:17 AM PATIENT INFORMATION COORDINATOR Height 165.1 cm (5' 5") 05/25/2018 9:17 AM PATIENT INFORMATION COORDINATOR Body Mass Index 20.97 05/25/2018 9:17 AM PATIENT INFORMATION COORDINATOR Plan of Treatment Date Type Specialty Care Team Description 11/23/2018 Office Visit Cardiology Tim Villagran MD [address] [address] Health Maintenance Due Date Last Done Comments SHINGLES VACCINES (#1) 1979 65+ PNEUMOCOCCAL VACCINE (1 of 2 - PCV13) 1994 PNEUMOCOCCAL POLYSACCHARIDE VACCINE AGE 65 AND OVER 1994 INFLUENZA VACCINE 11/04/2017 Procedures Procedure Name Priority Date/Time Associated Diagnosis Comments OBTAIN MEDICAL Routine 10/27/2017 RECORDS ECG 12-LEAD Routine 10/02/2017 9:10 Essential Results for this AM CDT hypertension procedure are in the results section. after 05/28/2017 Results Obtain medical records (10/27/2017) Narrative Performed At ECG 12 lead (10/02/2017 9:10 AM CDT) Ventricular rate 64 [facility] Atrial rate 64 [facility] IA interval 206 [facility] QRSD interval 118 [...] leads- Performing Organization Address City/State/Zipcode Phone Number [facility] [address] [place] [address] after 05/28/2017 Insurance Payer Benefit Plan / Group Subscriber ID Type Phone Address [facility] MEDICARE [facility] MEDICARE COMPLETE xxxxxxxxx HMO Advance Directives Patient has advance care planning documents on file. For more information, please contact:Erasto Chicas[address] [place] [address]
--- NOTE | 2018-05-29 15:03 | EDPHYS ---
Physician Documentation [facility] Name: Mirtha Valentin Age: 88 yrs Sex: Female : 1930 Arrival Date: 05/29/2018 Time: 12:46 Bed 2 Private MD: Brijesh Bush R ED Physician Kun Novak HPI: 05/29 14:59 This 88 yrs old Female presents to ER via Ambulatory with complaints of High trev Blood Pressure. 14:59 The patient has elevated blood pressure and discovered this at home, with a home trev device. Onset: The symptoms/episode began/occurred 2 day(s) ago. Modifying factors: The symptoms are aggravated by activity, The symptoms are alleviated by remaining still. Associated signs and symptoms: The patient has no apparent associated signs or symptoms. Severity of symptoms: At its worst the blood pressure was moderate, in the emergency department the blood pressure is unchanged. The patient has not experienced similar symptoms in the past. Historical: - Allergies: 13:02 "steroids"; sg 13:02 codine; sg 13:02 Keflex; sg 13:02 Opioids - Morphine Analogues; sg 13:02 PENICILLINS; sg - PMHx: 13:02 Anxiety; CVA; Hypertension; TIA; sg - Immunization history:: Adult Immunizations up to date. - Social history:: Smoking status: Patient/guardian denies using tobacco. - Ebola Screening: : Patient negative for fever greater than or equal to 101.5 degrees Fahrenheit, and additional compatible Ebola Virus Disease symptoms Patient denies exposure to infectious person Patient denies travel to an Ebola-affected area in the 21 days before illness onset No symptoms or risks identified at this time. ROS: 15:00 Constitutional: Negative for fever, chills, and weight loss, Eyes: Negative for injury, trev pain, redness, and discharge, ENT: Negative for injury, pain, and discharge, Neck: Negative for injury, pain, and swelling, Cardiovascular: Negative for chest pain, palpitations, and edema, Respiratory: Negative for shortness of breath, cough, wheezing, and pleuritic chest pain, Abdomen/GI: Negative for abdominal pain, nausea, vomiting, diarrhea, and constipation, Back: Negative for injury and pain, : Negative for injury, bleeding, discharge, and swelling, MS/Extremity: Negative for injury and deformity, Skin: Negative for injury, rash, and discoloration, Neuro: Negative for headache, weakness, numbness, tingling, and seizure, Psych: Negative for depression, anxiety, suicide ideation, homicidal ideation, and hallucinations, Allergy/Immunology: Negative for hives, rash, and allergies, Endocrine: Negative for neck swelling, polydipsia, polyuria, polyphagia, and marked weight changes, Hematologic/Lymphatic: Negative for swollen nodes, abnormal bleeding, and unusual bruising. Exam: 15:00 Constitutional: This is a well developed, well nourished patient who is awake, alert, trev and in no acute distress. Head/Face: Normocephalic, atraumatic. Eyes: Pupils equal round and reactive to light, extra-ocular motions intact. Lids and lashes normal. Conjunctiva and sclera are non-icteric and not injected. Cornea within normal limits. Periorbital areas with no swelling, redness, or edema. ENT: Nares patent. No nasal discharge, no septal abnormalities noted. Tympanic membranes are normal and external auditory canals are clear. Oropharynx with no redness, swelling, or masses, exudates, or evidence of obstruction, uvula midline. Mucous membranes moist. Neck: Trachea midline, no thyromegaly or masses palpated, and no cervical lymphadenopathy. Supple, full range of motion without nuchal rigidity, or vertebral point tenderness. No Meningismus. Chest/axilla: Normal chest wall appearance and motion. Nontender with no deformity. No lesions are appreciated. Cardiovascular: Regular rate and rhythm with a normal S1 and S2. No gallops, murmurs, or rubs. Normal PMI, no JVD. No pulse deficits. Respiratory: Lungs have equal breath sounds bilaterally, clear to auscultation and percussion. No rales, rhonchi or wheezes noted. No increased work of breathing, no retractions or nasal flaring. Abdomen/GI: Soft, non-tender, with normal bowel sounds. No distension or tympany. No guarding or rebound. No evidence of tenderness throughout. Back: No spinal tenderness. No costovertebral tenderness. Full range of motion. Skin: Warm, dry with normal turgor. Normal color with no rashes, no lesions, and no evidence of cellulitis. MS/ Extremity: Pulses equal, no cyanosis. Neurovascular intact. Full, normal range of motion. Neuro: Awake and alert, GCS 15, oriented to person, place, time, and situation. Cranial nerves II-XII grossly intact. Motor strength 5/5 in all extremities. Sensory grossly intact. Cerebellar exam normal. Normal gait. Psych: Awake, alert, with orientation to person, place and time. Behavior, mood, and affect are within normal limits. Vital Signs: 13:00 BP 190 / 78; Pulse 87; Resp 22; Temp 97.6; Pulse Ox 99% on R/A; Weight 64.41 kg (R); hb Pain 0/10; 13:45 BP 193 / 76; Pulse 64; Resp 18; Pulse Ox 95% on R/A; aj1 14:29 BP 192 / 84; Pulse 60; Resp 18; Pulse Ox 97% on R/A; aj1 14:47 BP 174 / 92; Pulse 59; Resp 20; Pulse Ox 97% on R/A; aj1 15:30 BP 167 / 98; Pulse 62; Resp 18; Pulse Ox 98% on R/A; aj1 MDM: 13:04 Patient medically screened[address] [facility] 15:03 Data reviewed: vital signs, nurses notes. [facility] 05/29 14:24 Order name: Basic Metabolic Panel [facility] 05/29 14:24 Order name: LFT's [facility] 05/29 14:24 Order name: Magnesium [facility] 05/29 14:24 Order name: XRAY Chest (1 view) [facility] Administered Medications: 15:24 Drug: Norvasc 10 mg Route: PO; [facility] 15:30 Follow up: Response: No adverse reaction aj Disposition: 05/29/18 15:02 Discharged to Home. Impression: Essential (primary) hypertension. - Condition is Stable. - Discharge Instructions: Hypertension, Hypertension, [id number], How to Take Your Blood Pressure, [id number], Managing Your Hypertension. - Prescriptions for Lopressor 50 mg Oral Tablet - take 1 tablet by ORAL route every 12 hours; 30 tablet. Norvasc 10 mg Oral Tablet - take 1 tablet by ORAL route once daily; 30 tablet. - Medication Reconciliation Form, Thank You Letter, Antibiotic Education, Prescription Opioid Use form. - Follow up: Private Physician; When: 2 - 3 days; Reason: Recheck today's complaints, Continuance of care, Re-evaluation by your physician. - Problem is new. - Symptoms have improved. Signatures: Dispatcher [employer] EDGwen Man RN RN aj1 Edward Whatley RN RN sg Anderson, Corey, MD MD cha Baxter, Heather RN RN hb Corrections: (The following items were deleted from the chart) 15:34 15:02 05/29/2018 15:02 Discharged to Home. Impression: Essential (primary) hb hypertension. Condition is Stable. Forms are Medication Reconciliation Form, Thank You Letter, Antibiotic Education, Prescription Opioid Use. Follow up: Private Physician; When: 2 - 3 days; Reason: Recheck today's complaints, Continuance of care, Re-evaluation by your physician. Problem is new. Symptoms have improved. trev
--- NOTE | 2018-05-29 15:03 | ER ---
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 Transition of care: patient was not received from another setting of care. Onset of symptoms was May 29, 2018. Risk Assessment: Do you want to hurt yourself or someone else? Patient reports no desire to harm self or others. Initial Sepsis Screen: Does the patient meet any 2 criteria? RR > 20 per min. Does the patient have a suspected source of infection? No. Patient's initial sepsis screen is negative. Care prior to arrival: None. 12:58 Method Of Arrival: Ambulatory sg 12:58 Acuity: SERAFIN 3 sg Triage Assessment: 15:30 General: Behavior is calm, cooperative. aj1 Historical: - Allergies: 13:02 "steroids"; sg 13:02 codine; sg 13:02 Keflex; sg 13:02 Opioids - Morphine Analogues; sg 13:02 PENICILLINS; sg - PMHx: 13:02 Anxiety; CVA; Hypertension; TIA; sg - Immunization history:: Adult Immunizations up to date. - Social history:: Smoking status: Patient/guardian denies using tobacco. - Ebola Screening: : Patient negative for fever greater than or equal to 101.5 degrees Fahrenheit, and additional compatible Ebola Virus Disease symptoms Patient denies exposure to infectious person Patient denies travel to an Ebola-affected area in the 21 days before illness onset No symptoms or risks identified at this time. Screenin:20 Abuse screen: Denies threats or abuse. Denies injuries from another. Nutritional aj1 screening: No deficits noted. Tuberculosis screening: No symptoms or risk factors identified. 15:30 Fall Risk None identified. aj1 Assessment: 13:20 General: Appears in no apparent distress. comfortable. Pain: Denies pain. Neuro: Level aj1 of Consciousness is awake, alert, obeys commands, Oriented to person, place, time, situation. Cardiovascular: Patient's skin is warm and dry. Respiratory: Airway is patent Respiratory effort is even, unlabored, Respiratory pattern is regular, symmetrical. GI: No signs and/or symptoms were reported involving the gastrointestinal system. : No signs and/or symptoms were reported regarding the genitourinary system. EENT: No signs and/or symptoms were reported regarding the EENT system. Derm: No signs and/or symptoms reported regarding the dermatologic system. Skin is pink, warm \\T\\ dry. normal. Musculoskeletal: No signs and/or symptoms reported regarding the musculoskeletal system. Circulation, motion, and sensation intact. 14:30 Reassessment: Patient appears in no apparent distress at this time. No changes from aj1 previously documented assessment. Patient and/or family updated on plan of care and expected duration. Pain level reassessed. Patient is alert, oriented x 3, equal unlabored respirations, skin warm/dry/pink. Patient is agitated because the doctor has not been in to see her. She does not want us to start blood work until the doctor sees her. NOtified Dr. Novak. 15:30 Reassessment: Patient appears in no apparent distress at this time. No changes from aj1 previously documented assessment. Patient and/or family updated on plan of care and expected duration. Pain level reassessed. Patient is alert, oriented x 3, equal unlabored respirations, skin warm/dry/pink. Vital Signs: 13:00 BP 190 / 78; Pulse 87; Resp 22; Temp 97.6; Pulse Ox 99% on R/A; Weight 64.41 kg (R); hb Pain 0/10; 13:45 BP 193 / 76; Pulse 64; Resp 18; Pulse Ox 95% on R/A; aj1 14:29 BP 192 / 84; Pulse 60; Resp 18; Pulse Ox 97% on R/A; aj1 14:47 BP 174 / 92; Pulse 59; Resp 20; Pulse Ox 97% on R/A; aj1 15:30 BP 167 / 98; Pulse 62; Resp 18; Pulse Ox 98% on R/A; aj1 ED Course: 12:46 Patient arrived in ED. mr 12:46 Brijesh Bush MD is Private Physician. mr 13:00 Triage completed. sg 13:00 Arm band placed on. sg 13:04 Kun Novak MD is Attending Physician. [facility] 13:20 Gwen Garcia, RN is Primary Nurse. aj1 13:20 Patient has correct armband on for positive identification. aj1 13:20 No provider procedures requiring assistance completed. aj1 14:46 XRAY Chest (1 view) In Process Unspecified. EDMS 15:30 Patient did not have IV access during this emergency room visit. aj1 Administered Medications: 15:24 Drug: Norvasc 10 mg Route: PO; aj1 15:30 Follow up: Response: No adverse reaction aj1 Outcome: 15:02 Discharge ordered by . [facility] 15:30 Discharged to home via wheelchair, with family. aj1 15:30 Condition: good 15:30 Discharge instructions given to patient, Instructed on discharge instructions, follow up and referral plans. medication usage, Demonstrated understanding of instructions, follow-up care, medications, Prescriptions given X 2. 15:34 Patient left the ED. hb Signatures: Dispatcher [employer] [facility]VA Gwen Garcia RN RN aj1 Edward Whatley RN RN Kun Alva MD MD cha Rivera, Mary mr AlarconNancy, RN RN hb Corrections: (The following items were deleted from the chart) 13:06 13:00 BP 188 / 92; Pulse 87bpm; Resp 22bpm; Pulse Ox 99% RA; Temp 97.6F; 64.41 kg hb Reported; Pain 0/10; sg 15:38 15:37 Reassessment: Patient appears in no apparent distress at this time. No changes aj1 from previously documented assessment. Patient and/or family updated on plan of care and expected duration. Pain level reassessed. Patient is alert, oriented x 3, equal unlabored respirations, skin warm/dry/pink. Patient is agitated because the doctor has not been in to see her. She does not want us to start blood work until the doctor sees her. NOtified Dr. Novak aj1
--- NOTE | 2018-05-29 15:10 | RAD REPORT ---
EXAM DESCRIPTION: RAD - Chest Single View - 05/29/2018 2:46 pm CLINICAL HISTORY: Cough and congestion, dyspnea COMPARISON: May 15, May 14 TECHNIQUE: AP portable chest image was obtained 1441 hours . FINDINGS: Patient has extensive baseline interstitial fibrotic change. Previously detailed right low er lung field pneumonia has almost fully resolved. Left base shows substantial improvement as well. P atchy right upper lobe opacification is improved with a small amount of remnant infiltrate present. B aseline fibrotic change is stable. No acute failure or volume overload. No measurable pleural effusio n and no pneumothorax. No acute bony abnormality seen. No acute aortic findings suspected. IMPRESSION: Extensive baseline fibrotic change with significant resolution of previously detailed pn eumonias. No new or progressive finding.
[2018-05-29] MEDS ORDERED: AMLODIPINE 5 MG TAB ONE (15:26)
[2018-05-29 15:40] VITALS: TEMP 97.6
[2018-05-29 15:42] VITALS: O2SAT 97
[2018-05-29 15:43] VITALS: BP 174/92
== END 2018-05-29 15:34 | disposition home or self-care (01) ==
LOC: ER 12:43
DX: I10 Essential (primary) hypertension (principal); Z86.73 Personal history of transient ischemic attack (TIA), and cerebral infarction without residual deficits; Z88.1 Allergy status to other antibiotic agents; Z88.5 Allergy status to narcotic agent; Z88.8 Allergy status to other drugs, medicaments and biological substances
CPT/HCPCS: 71045; 99283

== ENCOUNTER 2019-01-09 07:49 | Emergency (ER) | payer OTHER ==
[2019-01-09 09:09] LABS: Urine Bacteria 20-50 /HPF (<20); Urine Culture Reflex Order REFLEXED; Urine RBC <5 /HPF (NONE SEEN)
--- NOTE | 2019-01-09 09:19 | ER ---
Nurse's Notes [facility] Name: Mirtha Valentin Age: 88 yrs Sex: Female : 1930 Arrival Date: 01/09/2019 Time: 07:50 Bed 13 Private MD: Diagnosis: Cystitis;Low back pain Presentation: 01/09 08:05 Presenting complaint: Patient states: Low back pain that radiates to the front lower rb1 abdomen, pt. was recently treated for a yeast infection. She did complete her medications. Transition of care: patient was not received from another setting of care. Risk Assessment: Do you want to hurt yourself or someone else? Patient reports no desire to harm self or others. Initial Sepsis Screen: Does the patient meet any 2 criteria? No. Patient's initial sepsis screen is negative. Does the patient have a suspected source of infection? No. Patient's initial sepsis screen is negative. Care prior to arrival: None. 08:05 Method Of Arrival: Ambulatory rb1 08:05 Acuity: SERAFIN 3 rb1 08:05 Onset of symptoms is unknown. rb1 Triage Assessment: 07:55 General: Appears in no apparent distress. comfortable, Behavior is calm, cooperative, rb1 Reports fever for. Pain: Complains of pain in low back Pain radiates to suprapubic area, right lower quadrant and left lower quadrant Pain currently is 3 out of 10 on a pain scale. at worst was 8 out of 10 on a pain scale. Neuro: Level of Consciousness is awake, alert, obeys commands, Oriented to person, place, time, situation. Cardiovascular: Capillary refill < 3 seconds is brisk in bilateral fingers. Respiratory: Airway is patent Respiratory effort is even, unlabored, Respiratory pattern is regular, symmetrical. GI: Reports diarrhea, pt. reports it is her normal. : Reports Recently being treated for a yeast infection. Derm: Skin is pink, warm \\T\\ dry. Historical: - Allergies: 07:55 "steroids"; rb1 07:55 codine; rb1 07:55 Keflex; rb1 07:55 Opioids - Morphine Analogues; rb1 07:55 PENICILLINS; rb1 - Home Meds: 07:55 amlodipine 10 mg tab once daily [Active]; aspirin 81 mg Oral chew 1 tab once daily rb1 [Active]; metoprolol tartrate 25 mg Oral tab 1 tab once daily [Active]; - PMHx: 07:55 Anxiety; CVA; Hypertension; TIA; rb1 - PSHx: 07:55 Hysterectomy; left mastectomy; rb1 - Immunization history:: Adult Immunizations up to date. - Social history:: Smoking status: Patient/guardian denies using tobacco. - Ebola Screening: : Patient negative for fever greater than or equal to 101.5 degrees Fahrenheit, and additional compatible Ebola Virus Disease symptoms. Screenin:55 Abuse screen: Denies threats or abuse. Nutritional screening: No deficits noted. rb1 Tuberculosis screening: No symptoms or risk factors identified. Fall Risk None identified. Assessment: 07:55 General: See triage assessment. rb1 08:50 Reassessment: Patient appears in no apparent distress at this time. No changes from rb1 previously documented assessment. Family at bedside. 09:40 Reassessment: Patient appears in no apparent distress at this time. Patient and/or rb1 family updated on plan of care and expected duration. Pain level reassessed. Patient is alert, oriented x 3, equal unlabored respirations, skin warm/dry/pink. Pain 3/10. Vital Signs: 07:55 BP 119 / 93; Pulse 63; Resp 16; Temp 97.6(O); Pulse Ox 97% on R/A; Weight 55.79 kg (R); rb1 Height 5 ft. 4 in. (162.56 cm) (R); Pain 3/10; 08:50 BP 125 / 53; Pulse 64; Resp 16; Pulse Ox 97% on R/A; Pain 3/10; rb1 09:40 BP 101 / 53; Pulse 63; Resp 15; Temp 98.0(O); Pulse Ox 98% on R/A; Pain 3/10; rb1 07:55 Body Mass Index 21.11 (55.79 kg, 162.56 cm) rb1 ED Course: 07:50 Patient arrived in ED. as 07:51 Juan Alonzo PA is PHCP. jr8 07:51 Jovon Buchanan MD is Attending Physician. jr8 07:55 Arm band placed on right wrist. rb1 07:55 Patient has correct armband on for positive identification. Bed in low position. Call rb1 light in reach. Side rails up X 1. Pulse ox on. NIBP on. Warm blanket given. 08:05 Fransisca Rajput, RN is Primary Nurse. rb1 08:07 Triage completed. rb1 09:46 No provider procedures requiring assistance completed. Patient did not have IV access rb1 during this emergency room visit. Administered Medications: No medications were administered Outcome: 09:18 Discharge ordered by . jrJimena 09:46 Discharged to home via wheelchair, with family. rb1 09:46 Condition: stable 09:46 Discharge instructions given to patient, Instructed on discharge instructions, follow up and referral plans. medication usage, Demonstrated understanding of instructions, follow-up care, medications, Prescriptions given X 1. 09:46 Patient left the ED. rb1 Addendum: 01/12/2019 12:27 Addendum: Culture Results: Positive urine culture. No further action required. Bacteria s s sensitive to prescribed antibiotic. Signatures: Yareli Norwood Shelby, OLIVE SCHAEFER Juan Alonzo PA PA jr8 Fransisca Rajput, RN RN rb1 Corrections: (The following items were deleted from the chart) 01/09 09:51 09:49 Patient left the ED. rb1 rb1
--- NOTE | 2019-01-09 09:19 | EDPHYS ---
Physician Documentation [facility] Name: Mirtha Valentin Age: 88 yrs Sex: Female : 1930 Arrival Date: 01/09/2019 Time: 07:50 Bed 13 Private MD: ED Physician Jovon Buchanan HPI: 01/09 08:15 This 88 yrs old Female presents to ER via Ambulatory with complaints of Low jr8 Back Pain, Pelvic Pain. 08:15 The patient presents with pain that is acute, with no known mechanism of injury. The jr8 symptoms are located in the low back, coccyx area. The pain does not radiate. Onset: The symptoms/episode began/occurred 3 day(s) ago. Severity of symptoms: At their worst the symptoms were mild. Pt reports lower back pain that began in the last couple days, has been on fluconazole for a yeast infection dx by PCP and states those symptoms have improved. Historical: - Allergies: 07:55 "steroids"; rb1 07:55 codine; rb1 07:55 Keflex; rb1 07:55 Opioids - Morphine Analogues; rb1 07:55 PENICILLINS; rb1 - Home Meds: 07:55 amlodipine 10 mg tab once daily [Active]; aspirin 81 mg Oral chew 1 tab once daily rb1 [Active]; metoprolol tartrate 25 mg Oral tab 1 tab once daily [Active]; - PMHx: 07:55 Anxiety; CVA; Hypertension; TIA; rb1 - PSHx: 07:55 Hysterectomy; left mastectomy; rb1 - Immunization history:: Adult Immunizations up to date. - Social history:: Smoking status: Patient/guardian denies using tobacco. - Ebola Screening: : Patient negative for fever greater than or equal to 101.5 degrees Fahrenheit, and additional compatible Ebola Virus Disease symptoms. ROS: 08:15 Constitutional: Negative for fever, chills, and weight loss, Eyes: Negative for injury, jr8 pain, redness, and discharge, ENT: Negative for injury, pain, and discharge, Neck: Negative for injury, pain, and swelling, Cardiovascular: Negative for chest pain, palpitations, and edema, Respiratory: Negative for shortness of breath, cough, wheezing, and pleuritic chest pain, MS/Extremity: Negative for injury and deformity, Skin: Negative for injury, rash, and discoloration, Neuro: Negative for headache, weakness, numbness, tingling, and seizure. 08:15 Back: Positive for pain with movement. 08:15 : Negative for urinary symptoms, urinary frequency, small amounts, hematuria. Exam: 08:15 Constitutional: This is a well developed, well nourished patient who is awake, alert, jr8 and in no acute distress. Head/Face: Normocephalic, atraumatic. Eyes: Pupils equal round and reactive to light, extra-ocular motions intact. Lids and lashes normal. Conjunctiva and sclera are non-icteric and not injected. Cornea within normal limits. Periorbital areas with no swelling, redness, or edema. ENT: Nares patent. No nasal discharge, no septal abnormalities noted. Tympanic membranes are normal and external auditory canals are clear. Oropharynx with no redness, swelling, or masses, exudates, or evidence of obstruction, uvula midline. Mucous membranes moist. Neck: Trachea midline, no thyromegaly or masses palpated, and no cervical lymphadenopathy. Supple, full range of motion without nuchal rigidity, or vertebral point tenderness. No Meningismus. Chest/axilla: Normal chest wall appearance and motion. Nontender with no deformity. No lesions are appreciated. Cardiovascular: Regular rate and rhythm with a normal S1 and S2. No gallops, murmurs, or rubs. Normal PMI, no JVD. No pulse deficits. Respiratory: Lungs have equal breath sounds bilaterally, clear to auscultation and percussion. No rales, rhonchi or wheezes noted. No increased work of breathing, no retractions or nasal flaring. Skin: Warm, dry with normal turgor. Normal color with no rashes, no lesions, and no evidence of cellulitis. MS/ Extremity: Pulses equal, no cyanosis. Neurovascular intact. Full, normal range of motion. 08:15 Abdomen/GI: Inspection: abdomen appears normal, Bowel sounds: normal, Palpation: abdomen is soft and non-tender, in all quadrants, Indicators: McBurney's point is not tender, Villa's sign is negative, Rovsing's sign is negative, Obturator sign is negative, Psoas sign is negative. 08:15 Back: tenderness to lower back and coccyx area to palpation.. Vital Signs: 07:55 BP 119 / 93; Pulse 63; Resp 16; Temp 97.6(O); Pulse Ox 97% on R/A; Weight 55.79 kg (R); rb1 Height 5 ft. 4 in. (162.56 cm) (R); Pain 3/10; 08:50 BP 125 / 53; Pulse 64; Resp 16; Pulse Ox 97% on R/A; Pain 3/10; rb1 09:40 BP 101 / 53; Pulse 63; Resp 15; Temp 98.0(O); Pulse Ox 98% on R/A; Pain 3/10; rb1 07:55 Body Mass Index 21.11 (55.79 kg, 162.56 cm) rb1 MDM: 08:01 Patient medically screened. jr8 09:15 Data reviewed: vital signs, nurses notes, lab test result(s), and as a result, I will jr8 discharge patient. Data interpreted: Pulse oximetry: on room air is 97 %. Interpretation: normal. Counseling: I had a detailed discussion with the patient and/or guardian regarding: the historical points, exam findings, and any diagnostic results supporting the discharge/admit diagnosis, lab results, the need for outpatient follow up, a family practitioner. ED course: Pt pain is reproducible with palpation of lower back, abd soft and non-tender. Reports suprapubic pain. Discussed possibility of UTI and need for FU with PCP . 01/09 08:17 Order name: Urine Microscopic Only; Complete Time: 09:14 jr8 01/09 09:11 Order name: Urine Culture EDMS Administered Medications: No medications were administered Disposition: 09:58 Co-signature as Attending Physician, Jovon Buchanan MD. rn Disposition: 01/09/19 09:18 Discharged to Home. Impression: Cystitis, Low back pain. - Condition is Stable. - Discharge Instructions: Back Pain, Adult, Musculoskeletal Pain, Urinary Tract Infection, Adult, Back Exercises, Gewx-lt-Oble, Heat Therapy. - Prescriptions for Macrobid 100 mg Oral Capsule - take 1 capsule by ORAL route every 12 hours for 7 days; 14 capsule. - Medication Reconciliation Form, Thank You Letter, Antibiotic Education form. - Follow up: Private Physician; When: 2 - 3 days; Reason: Recheck today's complaints, Continuance of care, Re-evaluation by your physician. - Problem is new. - Symptoms are unchanged. Signatures: Dispatcher [employer] EDMS Jovon Buchanan MD MD rn Roszak, Josh, PA PA jr8 Fransisca Rajput RN RN rb1 Corrections: (The following items were deleted from the chart) 08:38 08:17 Urine Dipstick-Ancillary ordered. jr8 rb1 09:19 09:18 01/09/2019 09:18 Discharged to Home. Impression: Cystitis. Condition is Stable. jr8 Forms are Medication Reconciliation Form, Thank You Letter, Antibiotic Education, Prescription Opioid Use. Follow up: Private Physician; When: 2 - 3 days; Reason: Recheck today's complaints, Continuance of care, Re-evaluation by your physician. Problem is new. Symptoms are unchanged. jr8 09:49 09:19 01/09/2019 09:18 Discharged to Home. Impression: Cystitis; Low back pain. rb1 Condition is Stable. Forms are Medication Reconciliation Form, Thank You Letter, Antibiotic Education, Prescription Opioid Use. Follow up: Private Physician; When: 2 - 3 days; Reason: Recheck today's complaints, Continuance of care, Re-evaluation by your physician. Problem is new. Symptoms are unchanged. jr8
[2019-01-09 09:56] VITALS: BP 101/53; TEMP 98; O2SAT 98
== END 2019-01-09 09:49 | disposition home or self-care (01) ==
LOC: ER 07:49
DX: N30.90 Cystitis, unspecified without hematuria (principal); Z88.6 Allergy status to analgesic agent; Z88.1 Allergy status to other antibiotic agents; Z88.0 Allergy status to penicillin; I25.2 Old myocardial infarction; I10 Essential (primary) hypertension
CPT/HCPCS: 81015; 87077; 87086; 87088; 87186; 99283